=== PATIENT | female | born 1930 | race Caucasian/White ===

== ENCOUNTER → 2016-08-07 | Outpatient (CLI) | payer MEDICARE, BC ==
[~2016-08-07] MED LIST: ASPI-110 PO; DRIS50002 PO; ERGO1CAP30 PO; GLUCOMETER STRIPS; Glucometer; HYDR-3516 PO; LISI10TA3 PO; MELA1TAB18 PO; METF500T4 PO; MONT10TA2 PO; MULTTAB67 PO
[2016-08-07 13:27] LABS: MICRO ALBUMIN RANDOM URINE RAW 7.1 MG/L (0.0-30.0)
[2016-08-07 13:47] LABS: ALT (GPT) 22 U/L (10-53); ANION GAP 7 MEQ/L (5-15); AST (GOT) 17 U/L (15-37); BICARBONATE 26.9 MEQ/L (21.0-32.0); BLOOD UREA NITROGEN 10 MG/DL (7-18); CHLORIDE 106 MEQ/L (98-107); GLOMERULAR FILTRATION RATE 87 ML/MIN (>89); GLUCOSE,FASTING 128 MG/DL (74-99); POTASSIUM 4.2 MEQ/L (3.5-5.1); SODIUM (NA) 140 MEQ/L (136-145)
[2016-08-07 13:51] LABS: ALKALINE PHOSPHATASE 74 U/L (45-117); HDL CHOLESTEROL 66.4 MG/DL (40.0-60.0); LDL CHOLESTEROL 125 MG/DL (0-99); TOTAL BILIRUBIN ADULT 0.7 MG/DL (0.2-1.0)
[2016-08-07 15:53] LABS: HEMOGLOBIN A1a 0.8 %; HEMOGLOBIN A1b 1.2 %; HEMOGLOBIN Ao 84.5 %; HEMOGLOBIN F 1.1 %; HEMOGLOBIN P3 3.6 %
== END ==
LOC: PLAB 10:00
PROVIDERS: ATTEND Family Medicine
DX: E11.9 Type 2 diabetes mellitus without complications (principal); E55.9 Vitamin D deficiency, unspecified; I10 Essential (primary) hypertension
CPT/HCPCS: 36415; 80053; 80061; 82043; 82306; 83036

== ENCOUNTER → 2016-11-25 | Outpatient (CLI) | payer MEDICARE, BC ==
[~2016-11-25] MED LIST changes: -DRIS50002 PO; -MONT10TA2 PO
== END ==
LOC: CLAB 12:51
PROVIDERS: ATTEND Family Medicine
DX: L65.9 Nonscarring hair loss, unspecified (principal)
CPT/HCPCS: 36415; 84443

== ENCOUNTER → 2017-01-01 | Outpatient (CLI) | payer MEDICARE, BC ==
[~2017-01-01] MED LIST changes: -ASPI-110 PO; +ASPI1TAB57 PO; -ERGO1CAP30 PO; +VITA500012 PO
[2017-01-01 15:02] LABS: ANION GAP 10 MEQ/L (5-15); BICARBONATE 25.2 MEQ/L (21.0-32.0); BLOOD UREA NITROGEN 9 MG/DL (7-18); CHLORIDE 104 MEQ/L (98-107); GLUCOSE,FASTING 114 MG/DL (74-99); POTASSIUM 3.8 MEQ/L (3.5-5.1); SODIUM (NA) 139 MEQ/L (136-145)
[2017-01-01 15:15] LABS: ALKALINE PHOSPHATASE 80 U/L (45-117); ALT (GPT) 24 U/L (10-53); AST (GOT) 13 U/L (15-37); GLOMERULAR FILTRATION RATE 97 ML/MIN (>89); HDL CHOLESTEROL 74.7 MG/DL (40.0-60.0); LDL CHOLESTEROL 141 MG/DL (0-99); TOTAL BILIRUBIN ADULT 0.6 MG/DL (0.2-1.0)
[2017-01-01 15:28] LABS: MICRO ALBUMIN RANDOM URINE RAW 9.2 MG/L (0.0-30.0)
[2017-01-01 18:19] LABS: HEMOGLOBIN A1b 1.3 %; HEMOGLOBIN Ao 83.6 %; HEMOGLOBIN F 1.2 %; HEMOGLOBIN LA1C 2.3 %; HEMOGLOBIN P3 3.8 %
== END ==
LOC: PLAB 10:58
PROVIDERS: ATTEND Family Medicine
DX: M81.0 Age-related osteoporosis without current pathological fracture (principal); E11.9 Type 2 diabetes mellitus without complications; I10 Essential (primary) hypertension; E04.1 Nontoxic single thyroid nodule; E55.9 Vitamin D deficiency, unspecified
CPT/HCPCS: 36415; 80053; 80061; 82043; 82306; 83036; 84443

== ENCOUNTER 2017-02-14 17:48 | Emergency (ER) | payer MEDICARE ==
[~2017-02-14] VITALS: Ht 157.5 cm; Wt 60.0 kg
[~2017-02-14 17:48] MED LIST changes: +FOSA70TA PO; -HYDR-3516 PO
[2017-02-14 17:59] VITALS: BP 162/78; PULSE 99; RESP 16; TEMP 98.9; O2SAT 96
--- NOTE | 2017-02-14 18:23 | PD ---
HPI Chief Complaint: Musculoskeletal Complaint Time Seen by Provider: 18:07 Travel History International Travel<30 days: No Contact w/Intl Traveler<30days: No Traveled to known affect area: No History of Present Illness HPI The patient was seen and examined in the presence of the nurse. This patient complains of pain in her left hip. It radiates to her left groin. Started yesterday. Worse with movement. No injury. No fever. Symptoms have no alleviating factors. Duration 2 days PFSH Past Medical History Cancer: Yes Diabetes: Yes Social History Alcohol Use: No Tobacco Use: No Substance Use: No Allergies-Medications (Allergen,Severity, Reaction): Coded Allergies: No Known Allergies (Unverified Adverse Reaction, Unknown, 02/14/17) Reported Meds & Prescriptions Reported Meds & Active Scripts Active Tramadol (Tramadol HCl) 50 Mg Tab 50 Mg PO Q6H PRN Metformin ER (Metformin HCl) 500 Mg Kaleb 500 Mg PO DAILY With evening meal Lisinopril 10 Mg Tab 10 Mg PO DAILY Review of Systems General / Constitutional: No: Fever Eyes: No: Visual changes HENT: No: Headaches Cardiovascular: No: Chest Pain or Discomfort Respiratory: No: Shortness of Breath Gastrointestinal: No: Abdominal Pain Genitourinary: No: Dysuria Musculoskeletal: Positive: Arthralgias, Limited ROM, Pain Skin: No Rash Neurologic: No: Weakness Psychiatric: No: Depression Endocrine: No: Polydipsia Hematologic/Lymphatic: No: Easy Bruising Physical Exam Narrative GENERAL: Well-nourished, well-developed patient in no apparent distress. SKIN: Focused skin assessment reveals no rash and nodules. Skin is Warm and dry. HEAD: Atraumatic. Normocephalic. EYES: Pupils equal and round. No scleral icterus. No injection or drainage. ENT: No nasal bleeding or discharge. Mucous membranes pink and moist. NECK: Trachea midline. No JVD. CARDIOVASCULAR: Regular rate and rhythm. No murmur appreciated. RESPIRATORY: No accessory muscle use. Clear to auscultation. Breath sounds equal bilaterally. GASTROINTESTINAL: Abdomen soft, non-tender, nondistended. Hepatic and splenic margins not palpable. MUSCULOSKELETAL: No obvious deformities. No clubbing. No cyanosis. No edema. Good range of motion of left hip. No redness or warmth or bruising or swelling seen. I don't see any abnormality in the groin NEUROLOGICAL: Awake and alert. No obvious cranial nerve deficits. Motor grossly within normal limits. Normal speech. PSYCHIATRIC: Appropriate mood and affect; insight and judgment normal. Data Data Last Documented VS Vital Signs Date Time Temp Pulse Resp B/P (MAP) Pulse Ox O2 Delivery O2 Flow Rate FiO2 02/14/17 17:59 98.9 99 16 162/78 (106) 96 Orders Orders Hip, Lat Only W Ap Pelvis (02/14/17 ) MDM Medical Decision Making Medical Screen Exam Complete: Yes Emergency Medical Condition: Yes Medical Record Reviewed: Yes Differential Diagnosis Groin strain, hip dislocation, pelvic fracture Narrative Course I have reviewed the patient's electronic medical record. Patient was here a year ago for hip pain I don't see any objective findings on exam. This is not a septic joint. I don't see a groin hernia or anything else that would explain obviously what's going on. I reviewed her pelvis x-ray which is normal I reviewed her left hip x-ray which is normal Patient has an orthopedist she plans on following up with. I wrote her some tramadol to use as needed at her request for something for pain Diagnosis Primary Impression: Left groin pain Additional Impression: Left hip pain Additional Instructions: The patient was warned about potential sedation for the medications they will receive on prescription. The patient was advised to follow up with their physician and return if they worsen. Med/Other Pt SpecificInfo: Prescription(s) given Scripts Tramadol (Tramadol) 50 Mg Tab 50 MG PO Q6H Y for PAIN, #20 TAB 0 Refills Prov: Best Sauceda MD 02/14/17 Disposition: 01 DISCHARGE HOME Condition: Stable Best Sauceda MD Feb 14, 2017 18:23
--- NOTE | 2017-02-14 18:54 | RADRPT ---
EXAM DATE/TIME: 02/14/2017 18:36 [facility] COMPARISON: No previous studies available for comparison. INDICATIONS : Left hip pain. No known injury. MEDICAL HISTORY : Diabetes mellitus type 2. Skin cancer SURGICAL HISTORY : None. ENCOUNTER: Initial ACUITY: 2 days PAIN SCORE: 7/10 LOCATION: Left pelvis FINDINGS: A lateral view of the left hip with AP pelvis was obtained. No definite fractures, dislocations, lyt ic or sclerotic lesions are seen. The primary and secondary to pattern of the femoral neck is mainta ined. The joint space is well maintained. Several calcified phleboliths in the pelvis. CONCLUSION: No fracture seen. Grayson Garcia MD on February 14, 2017 at 18:51 Board Certified Radiologist. This report was verified electronically.
[2017-02-14] MEDS ORDERED: TRAM50TA PO (19:12)
[2017-02-14 19:22] VITALS: BP 158/78
== END 2017-02-14 19:31 | disposition home or self-care (01) ==
LOC: PHED 17:48
DX: M25.552 Pain in left hip (principal); R10.32 Left lower quadrant pain; E11.9 Type 2 diabetes mellitus without complications; Z79.899 Other long term (current) drug therapy
CPT/HCPCS: 73501; 99283

== ENCOUNTER 2017-02-24 11:05 | Inpatient (IN) | payer MEDICARE, BC ==
[~2017-02-24] VITALS: Ht 152.4 cm; Wt 60.9 kg
[2017-02-24] VITALS (11 sets, daily range): BP systolic 128–157; BP diastolic 61–86; PULSE 85–144; RESP 16–24; TEMP 98.3–98.7; O2SAT 93–99
[~2017-02-24 11:05] MED LIST changes: +TRAM50TA PO
[2017-02-24] MEDS ORDERED: IOHEXOL 350 MG/ML 10 ML VIAL (for RAD DIAG) IVCONTRAST ONE (11:06)
--- NOTE | 2017-02-24 11:32 | PD ---
HPI Chief Complaint: General Weakness Time Seen by Provider: 11:12 Travel History International Travel<30 days: No Contact w/Intl Traveler<30days: No Traveled to known affect area: No History of Present Illness HPI 86 year old female presents to the emergency department for evaluation of generalized weakness and right cubital fossa pain. Patient was evaluated at our facility on February 14 for left hip pain. Patient helped her her granddaughter clean out a scream and porch a couple days before the left hip pain presented. An x-ray was performed at our facility which was negative. The patient was discharged home with tramadol prescription. The patient states the left hip pain is not significant at this time however she experienced transient abdominal pain on Friday the , denies any nausea, vomiting or diarrhea. She states the abdominal pain was dull in nature and only last a couple hours resolving on its own. Patient denies any fever, chills, malaise, chest pain, shortness of breath. Patient now states the cubital fossa on her right arm is painful. The pain in her right arm started 2 days ago. She denies any exacerbating or alleviating factors. Patient denies any trauma, injury or falls. No obvious deformity, ecchymosis, or erythema. Body Art Technician strengths are equal on bilateral upper extremities. PFSH Past Medical History Cancer: Yes Diabetes: Yes Hypertension: Yes Social History Alcohol Use: No Tobacco Use: No Substance Use: No Allergies-Medications (Allergen,Severity, Reaction): Coded Allergies: No Known Allergies (Unverified Allergy, Unknown, 02/24/17) Reported Meds & Prescriptions Reported Meds & Active Scripts Active Tramadol (Tramadol HCl) 50 Mg Tab 50 Mg PO Q6H PRN Metformin ER (Metformin HCl) 500 Mg Kaleb 500 Mg PO DAILY With evening meal Lisinopril 10 Mg Tab 10 Mg PO DAILY Review of Systems Except as stated in HPI: all other systems reviewed are Neg Physical Exam Narrative GENERAL: Well-nourished, well-developed, well-appearing 86-year-old female in no acute distress. Nontoxic appearing. SKIN: Focused skin assessment warm/dry. HEAD: Atraumatic. Normocephalic. EYES: Pupils equal and round. No scleral icterus. No injection or drainage. ENT: No nasal bleeding or discharge. Mucous membranes pink and moist. NECK: Trachea midline. No JVD. CARDIOVASCULAR: Regular rate and rhythm. No murmur appreciated. Radial pulses +2 bilaterally. RESPIRATORY: No accessory muscle use. Clear to auscultation. Breath sounds equal bilaterally. GASTROINTESTINAL: Abdomen soft, non-tender, nondistended. Hepatic and splenic margins not palpable. MUSCULOSKELETAL: Equal filtering machine tender strengths bilaterally. No obvious deformities. No clubbing. No cyanosis. No edema. NEUROLOGICAL: Awake and alert. No obvious cranial nerve deficits. Motor grossly within normal limits. Normal speech. PSYCHIATRIC: Appropriate mood and affect; insight and judgment normal. Data Data Last Documented VS Vital Signs Date Time Temp Pulse Resp B/P (MAP) Pulse Ox O2 Delivery O2 Flow Rate FiO2 02/24/17 16:21 174 175/95 02/24/17 15:40 24 93 Nasal Cannula 2.00 02/24/17 11:08 98.7 Orders Orders Electrocardiogram (02/24/17 11:26) Complete Blood Count With Diff (02/24/17 11:26) Basic Metabolic Panel (Bmp) (02/24/17 11:26) Ckmb (Isoenzyme) Profile (02/24/17 11:26) Troponin I (02/24/17 11:26) Urinalysis - C+S If Indicated (02/24/17 11:26) Urine Culture (02/24/17 11:40) Sodium Chlorid 0.9% 500 Ml Inj (Ns 500 M (02/24/17 12:45) Ct Abd/Pel W Iv Contrast(Rout) (02/24/17 12:34) Iohexol 350 Inj (Omnipaque 350 Inj) (02/24/17 11:06) Diltiazem Inj (Cardizem Inj) (02/24/17 15:30) Diltiazem Inj (Cardizem Inj) (02/24/17 16:00) Magnesium (Mg) (02/24/17 11:40) Admit To Inpatient (02/24/17 ) Code Status (02/24/17 16:35) Vital Signs (Adult) Q4H (02/24/17 16:35) Activity Oob With Assistance (02/24/17 16:35) Muck Boss / Telemetry .CONTINUOUS (02/24/17 16:35) Notify Dr: Other (02/24/17 16:35) Sodium Chloride 0.9% Flush (Ns Flush) (02/24/17 16:45) Sodium Chloride 0.9% Flush (Ns Flush) (02/24/17 21:00) Resp Oxygen Jonathon C Titrat 1-4 L (02/24/17 ) Pt Request For Service (02/24/17 16:35) Ot Request For Service (02/24/17 16:35) Enoxaparin Inj (Lovenox Inj) (02/24/17 17:00) Acetaminophen (Tylenol) (02/24/17 16:45) Ibuprofen (Motrin) (02/24/17 16:45) Naloxone Inj (Narcan Inj) (02/24/17 16:45) Docusate Sodium-Senna (Renetta-Colace) (02/24/17 21:00) Magnesium Hydroxide Liq (Milk Of Magnesi (02/24/17 16:45) Sennosides (Senokot) (02/24/17 16:45) Bisacodyl Supp (Dulcolax Supp) (02/24/17 16:45) Lactulose Liq (Lactulose Liq) (02/24/17 16:45) Inpatient Certification (02/24/17 ) Bedside Glucose ALEX.CSUGAR (02/24/17 16:41) Blood Glucose Goal (Criteria) (02/24/17 16:41) Hypoglycemia 70 Mg/Dl Or < (02/24/17 16:41) Notify Dr: Other (02/24/17 16:41) Dextrose 50% In Sera (Vial) Inj (D50w (Vi (02/24/17 16:45) Glucagon Inj (Glucagon Inj) (02/24/17 16:45) Diet 1999 Ada Cons Carb (02/24/17 Dinner) Lisinopril (Prinivil) (02/25/17 09:00) Troponin I (02/24/17 16:45) Troponin I (02/24/17 22:45) Ckmb (Isoenzyme) Profile (02/24/17 16:45) Ckmb (Isoenzyme) Profile (02/24/17 22:45) Electrocardiogram (02/24/17 16:45) Electrocardiogram (02/24/17 22:45) Thyroid Stimulating Hormone (02/24/17 16:46) Echo 2d Comp With Doppler (02/24/17 ) Ceftriaxone Inj (Rocephin Inj) (02/24/17 17:00) Influenzae A/B Antigen (02/24/17 16:48) Metformin (Glucophage) (02/26/17 18:00) Admit Order (Ed Use Only) (02/24/17 17:05) Labs Laboratory Tests Test 02/24/17 11:40 White Blood Count 19.3 TH/MM3 Red Blood Count 4.20 MIL/MM3 Hemoglobin 13.5 GM/DL Hematocrit 37.9 % Mean Corpuscular Volume 90.2 FL Mean Corpuscular Hemoglobin 32.0 PG Mean Corpuscular Hemoglobin Concent 35.5 % Red Cell Distribution Width 12.1 % Platelet Count 529 TH/MM3 Mean Platelet Volume 8.6 FL Neutrophils (%) (Auto) 84.4 % Lymphocytes (%) (Auto) 5.3 % Monocytes (%) (Auto) 9.6 % Eosinophils (%) (Auto) 0.3 % Basophils (%) (Auto) 0.4 % Neutrophils # (Auto) 16.3 TH/MM3 Lymphocytes # (Auto) 1.0 TH/MM3 Monocytes # (Auto) 1.8 TH/MM3 Eosinophils # (Auto) 0.0 TH/MM3 Basophils # (Auto) 0.1 TH/MM3 CBC Comment DIFF FINAL Differential Comment Urine Color YELLOW Urine Turbidity CLEAR Urine pH 6.0 Urine Specific [place] 1.017 Urine Protein 30 mg/dL Urine Glucose (UA) NEG mg/dL Urine Ketones 10 mg/dL Urine Occult Blood NEG Urine Nitrite NEG Urine Bilirubin NEG Urine Urobilinogen LESS THAN 2.0 MG/DL Urine Leukocyte Esterase SMALL Urine RBC LESS THAN 1 /hpf Urine WBC 9 /hpf Urine Squamous Epithelial Cells <1 /hpf Urine Bacteria OCC /hpf Urine Mucus MANY /lpf Microscopic Urinalysis Comment CULTURE INDICATED Blood Urea Nitrogen 7 MG/DL Creatinine 0.65 MG/DL Random Glucose 209 MG/DL Calcium Level 9.3 MG/DL Magnesium Level 1.9 MG/DL Sodium Level 131 MEQ/L Potassium Level 3.6 MEQ/L Chloride Level 96 MEQ/L Carbon Dioxide Level 24.4 MEQ/L Anion Gap 11 MEQ/L Estimat Glomerular Filtration Rate 86 ML/MIN Total Creatine Kinase 67 U/L Troponin I 0.03 NG/ML MDM Medical Decision Making Medical Screen Exam Complete: Yes Emergency Medical Condition: Yes Differential Diagnosis Differential diagnosis include but not limited to muscle strain, muscle sprain, electrolyte abnormality, coronary event Narrative Course Patient placed on monitor and IV obtained. Blood work sent to the lab. CBC, BMP , Troponin, CK-MB, UA ordered and pending. EKG ordered and interpreted. EKG shows NSR with HR 91 with LBBB. Patient has no previous EKG in our system to compare. Patient denies any chest pain or shortness of breath. CBC results leukocytosis with WBCs 19.3 BMP shows mild hyponatremia was Na 131 Trop 0.03 CK-MB 67 UA shows Protein, ketones, small amount of esterase, many bacteria and 9 WBCs. Patient will be treated for UTI. Abd CT ordered and shows cholelithiasis. While patient was on monitor it was noted that she became very tachycardiac in the 150s-170s. She denies any cardiac history. She continued to deny any chest pain, shortness of breath or palpations. Additional EKG ordered and interpreted and it revealed A. fib with RVR. 15 mg IV bolus of Cardizem was ordered and Cardizem drip. Patient was admitted to the resident's for A. fib with RVR at this time. Last Impressions Abdomen/Pelvis CT 02/24/17 1234 Signed Impressions: Service Date/Time: Friday, February 24, 2017 14:36 - CONCLUSION: Cholelithiasis. Ashley Diaz MD Diagnosis Primary Impression: New onset a-fib Additional Impressions: Atrial fibrillation with RVR UTI (urinary tract infection) Qualified Codes: N39.0 - Urinary tract infection, site not specified Admitting Information Admitting Physician Requests: Admit Fabiana Lazcano Feb 24, 2017 11:32
[2017-02-24 12:10] LABS: AUTOMATED NEUTROPHIL # 16.3 TH/MM3 (1.8-7.7); BASOPHIL # 0.1 TH/MM3 (0-0.2); BASOPHIL % 0.4 % (0.0-2.0); EOSINOPHIL % 0.3 % (0.0-4.0); HEMATOCRIT 37.9 % (35.0-46.0); HEMOGLOBIN 13.5 GM/DL (11.6-15.3); LYMPH % 5.3 % (9.0-44.0); MEAN CELL VOLUME 90.2 FL (80.0-100.0); MEAN CORPUSCULAR HGB CONC 35.5 % (32.0-36.0); MEAN PLATELET VOLUME 8.6 FL (7.0-11.0); MONO % 9.6 % (0.0-8.0); MONOCYTE # 1.8 TH/MM3 (0-0.9); NEUT % 84.4 % (16.0-70.0); PLATELET COUNT 529 TH/MM3 (150-450); RED CELL DISTRIBUTION WIDTH 12.1 % (11.6-17.2); WHITE BLOOD COUNT 19.3 TH/MM3 (4.0-11.0)
[2017-02-24 12:12] LABS: BACTERIA, URINE OCC /hpf; BILIRUBIN, URINE NEG (NEG); BLOOD, URINE NEG (NEG); GLUCOSE,URINE NEG (NEG); KETONE, URINE 10 mg/dL (NEG); MUCUS URINE MANY /lpf (OCC); NITRITE,URINE NEG (NEG); SQUAMOUS EPITHELIAL CELL URINE <1 /hpf (0-5); URINE COLOR YELLOW (YELLW/STRAW); URINE LEUKOCYTE ESTERASE SMALL (NEG)
[2017-02-24 12:24] LABS: BICARBONATE 24.4 MEQ/L (21.0-32.0); CALCIUM 9.3 MG/DL (8.5-10.1); CREATININE 0.65 MG/DL (0.50-1.00)
[2017-02-24 12:28] LABS: TROPONIN I 0.03 NG/ML (0.02-0.05)
[2017-02-24] MEDS ORDERED: SODIUM CHLORID 0.9% 500 ML INJ 500 ML IV ONE (12:45)
--- NOTE | 2017-02-24 15:19 | RADRPT ---
EXAM DATE/TIME: 02/24/2017 14:36 [facility] COMPARISON: No previous studies available for comparison. INDICATIONS : Patient complains of abdominal pain with weakness. IV CONTRAST: 97 cc Omnipaque 350 (iohexol) IV ORAL CONTRAST: No oral contrast ingested. RADIATION DOSE: 6.64 CTDIvol (mGy) MEDICAL HISTORY : Hypertension. Diabetes mellitus type 1. SURGICAL HISTORY : None. ENCOUNTER: Initial ACUITY: 1 week PAIN SCALE: 5/10 LOCATION: abdominal TECHNIQUE: Volumetric scanning of the abdomen and pelvis was performed. Using automated exposure control and adjustment of the mA and/or kV according to patient size, radiation dose was kept as low as reasonably achievable to obtain optimal diagnostic quality images. DICOM format image data is av ailable electronically for review and comparison. FINDINGS: CT Abdomen: The liver, spleen, pancreas, kidneys, adrenals are unremarkable. There is no evidence for any appreciable pathological adenopathy, free fluid, or bowel obstruction. The gallbladder demonstr ates multiple stones without gallbladder wall thickening, or pericholecystic fluid. CT pelvis: There is no evidence for mass, abscess formation, or any significant adenopathy within the pelvis. There are scattered diverticuli mainly in the sigmoid colon without definite signs of divert iculitis. CONCLUSION: Cholelithiasis. Ashley Diaz MD on February 24, 2017 at 15:13 Board Certified Radiologist. This report was verified electronically.
[2017-02-24] MEDS ORDERED: niCARdipine INJ 25 MG in SODIUM CHLOR 0.9% 250 ML INJ 240 ML IV ONE (15:30)
[2017-02-24] MEDS ORDERED: DILTIAZEM HCL 25 MG/5 ML VIAL IV ONE ×2 (15:30)
--- NOTE | 2017-02-24 15:47 | HHI.HP ---
HPI Service Family Medicine Primary Care Physician Bekah Tabares MD Admission Diagnosis AFib with RVR Diagnoses: International Travel<30 Days: No Contact w/Intl Traveler<30days: No Known Affected Area: No History of Present Illness 86 yo female with h/o DM presenting with 2 days of R elbow pain and R arm weakness in the setting of a week of intermittent muscle aches in various parts of her body, intermittent dull abdominal pain, and global weakness. She recently helped her granddaughter clean a screen at their house but recalls no trauma to her arm or any other body part. (Timoteo Singletary MD) Review of Systems Constitutional: COMPLAINS OF: Fatigue, DENIES: Fever, Chills Endocrine: DENIES: Heat/cold intolerance Eyes: COMPLAINS OF: Blurred vision (chronic), DENIES: Eye pain Ears, nose, mouth, throat: DENIES: Throat pain, Ear Pain Respiratory: DENIES: Cough, Wheezing, Sputum production, Shortness of breath Cardiovascular: DENIES: Chest pain, Palpitations Gastrointestinal: COMPLAINS OF: Abdominal pain, DENIES: Black stools, Bloody stools, Constipation, Diarrhea, Nausea, Vomiting Genitourinary: COMPLAINS OF: Urinary frequency, Urinary incontinence, DENIES: Urgency, Dysuria Musculoskeletal: COMPLAINS OF: Muscle aches, DENIES: Joint pain, Stiffness Integumentary: DENIES: Rash Hematologic/lymphatic: DENIES: Bruising Immunologic/allergic: DENIES: Eczema Neurologic: COMPLAINS OF: Localized weakness (R arm feels weaker), DENIES: Abnormal gait, Paresthesias, Speech Problems Psychiatric: DENIES: Anxiety, Depression (Timoteo Singletary MD) Past Family Social History Past Medical History DM II HTN Vitamin D deficiency Vitamin B12 deficiency? chronic foot pain knee and hip arthritis osteoporosis esophageal stricture nonobstructive cholelithiasis R thyroid nodule, 08/2015 Past Surgical History L cornea transplant, 2013 Cataract surgery, bilaterally L breast biopsy, 1998 esophageal dilation, 2009 L wrist fracture, 2012 Reported Medications Reported Meds & Active Scripts Active Tramadol (Tramadol HCl) 50 Mg Tab 50 Mg PO Q6H PRN Metformin ER (Metformin HCl) 500 Mg Kaleb 500 Mg PO DAILY With evening meal Lisinopril 10 Mg Tab 10 Mg PO DAILY (Timoteo Singletary MD) Allergies: Coded Allergies: No Known Allergies (Unverified Allergy, Unknown, 02/24/17) Family History mother - DM II brother - DM II, ESRD from DM II sister - DM II sister - Breast CA, 86yo niece - DM II with retinopathy Suicide, CAD, hypothyroidism Social History x 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 From [place]. Never smoker. No alcohol, no illicits. No regular exercise. Retired, but worked as [employer]ER. Health Maintenance: last pap: 07/2009, normal mammogram: 12/2013, normal; declines additional mammogram DEXA: 10/2012, osteoporosis colonoscopy: 07/2013 flu vaccine: Fall 2016 pneumococcal vaccine: pneumovax: 11/2004 prevnar: 06/2014 shingles vaccine: 02/2007 TdaP: 11/2005 eye doctor: 11/2016, Dr Wolff dentist: years Other physicians: maggi Mar (Cornea specialist) maggi Quinonez Dr, GI (Timoteo Singletary MD) Physical Exam Vital Signs Vital Signs Date Time Temp Pulse Resp B/P (MAP) Pulse Ox O2 Delivery O2 Flow Rate FiO2 02/24/17 15:40 144 24 149/86 (107) 93 Nasal Cannula 2.00 02/24/17 13:07 88 18 128/61 (83) 94 Room Air 02/24/17 11:28 95 Room Air 02/24/17 11:08 98.7 102 18 157/76 (103) 94 Room Air Physical Exam GENERAL: Thin elderly white female sitting up in bed in [facility] SKIN: No rashes, ecchymoses or lesions. Cool and dry. HEAD: NC/AT EYES: PERRL. EOMI. No conjunctival injection or drainage. ENT: MMM, OP without erythema, tonsillar swelling, or exudate. NECK: Supple, no lymphadenopathy. No JVD. CARDIOVASCULAR: Tachycardic with irregularly irregular rhythm. Normal S1/S2. No MRG RESPIRATORY: CTAB. No crackles or wheezes. GASTROINTESTINAL: Abdomen soft, non-distended, non-tender. No hepato- splenomegaly or palpable masses. MUSCULOSKELETAL: Extremities without clubbing, cyanosis, or edema. Mild tenderness to palpation of b/l ankles. R elbow without evidence of trauma. Mild tenderness over medial and lateral epicondyles. NEUROLOGICAL: Awake and alert. Cranial nerves II through XII intact. No facial droop. Speech normal. Sensation intact to light touch over all dermatomes. Strength 5/5 in all major muscle groups. Rapid alternating movements normal. [id number]-[id number] testing normal. No pronator drift. Laboratory Laboratory Tests Test 02/24/17 11:40 White Blood Count 19.3 Red Blood Count 4.20 Hemoglobin 13.5 Hematocrit 37.9 Mean Corpuscular Volume 90.2 Mean Corpuscular Hemoglobin 32.0 Mean Corpuscular Hemoglobin Concent 35.5 Red Cell Distribution Width 12.1 Platelet Count 529 Mean Platelet Volume 8.6 Neutrophils (%) (Auto) 84.4 Lymphocytes (%) (Auto) 5.3 Monocytes (%) (Auto) 9.6 Eosinophils (%) (Auto) 0.3 Basophils (%) (Auto) 0.4 Neutrophils # (Auto) 16.3 Lymphocytes # (Auto) 1.0 Monocytes # (Auto) 1.8 Eosinophils # (Auto) 0.0 Basophils # (Auto) 0.1 CBC Comment DIFF FINAL Differential Comment Urine Color YELLOW Urine Turbidity CLEAR Urine pH 6.0 Urine Specific [place] 1.017 Urine Protein 30 Urine Glucose (UA) NEG Urine Ketones 10 Urine Occult Blood NEG Urine Nitrite NEG Urine Bilirubin NEG Urine Urobilinogen LESS THAN 2.0 Urine Leukocyte Esterase SMALL Urine RBC LESS THAN 1 Urine WBC 9 Urine Squamous Epithelial Cells <1 Urine Bacteria OCC Urine Mucus MANY Microscopic Urinalysis Comment CULTURE INDICATED Blood Urea Nitrogen 7 Creatinine 0.65 Random Glucose 209 Calcium Level 9.3 Sodium Level 131 Potassium Level 3.6 Chloride Level 96 Carbon Dioxide Level 24.4 Anion Gap 11 Estimat Glomerular Filtration Rate 86 Total Creatine Kinase 67 Troponin I 0.03 Date/Time Source Procedure Growth Status 02/24/17 11:40 Urine Clean Catch Urine Culture Pending Received (Timoteo Singletary MD) Result Diagram: 02/24/17 1140 02/24/17 1140 Imaging Last Impressions Abdomen/Pelvis CT 02/24/17 1234 Signed Impressions: Service Date/Time: Friday, February 24, 2017 14:36 - CONCLUSION: Cholelithiasis. Ashley Diaz MD (Timoteo Singletary MD) Caprini VTE Risk Assessment Caprini VTE Risk Assessment: Mod/High Risk (score >= 2) (Timoteo Singletary MD) Assessment and Plan Assessment and Plan 86 yo female with h/o DM, HTN, cholelithiasis presenting with: (Timoteo Singletary MD) Attending Attestation Patient seen and examined. Case reviewed and discussed with the resident team. Agree with plan of care as discussed with me and documented in the resident note. pt seen and examined on admission in the ED. discussed giving digoxin and possibly loading that medicine if her heart rate did not respond appropriately. (Bernie Rivera MD) Problem List: (1) Atrial fibrillation with RVR ICD Codes: I48.91 - Unspecified atrial fibrillation Status: Resolved Plan: Patient found to be in newly diagnosed AFib with RVR Globally weak but otherwise asymptomatic Initially EKG showing normal sinus rhythm and LBBB Subsequent EKG with AFib, heart rate in 150s, persistent LBBB Telemetry showing HR fluctuating between 150 and 180 Troponin negative x1 - Admit to inpatient - Trend troponin, CKMB, EKG - 2D Echo complete w/ doppler - Diltiazem drip for rate control, titrated per protocol - Check TSH; patient has h/o thyroid nodule though recent TSH was normal - Discussed with cardiology (not formally consulted); LBBB possibly due to elevated HR, patient without typical cardiac symptoms and negative troponins - Available PRN; recommended routine AFib work up (i.e., the above) - PT/OT - CHADS-VASC score of 5 (6.7% yearly stroke risk) - HAS-BLED score of 1 (1-1.5% yearly bleeding risk with OAC) - Will need discussion of anticoagulation; for now given AFib seems to be intermittent will use prophylaxis and have OAC discussion tomorrow when other etiologies than primary AFib ar ruled out (2) UTI (urinary tract infection) ICD Codes: N39.0 - Urinary tract infection, site not specified Status: Resolved Plan: Patient with occasional incontinence, frequency UA suggestive of UTI - Await UCx result - Rocephin 1 gm IV daily (3) Cholelithiasis ICD Codes: K80.20 - Calculus of gallbladder without cholecystitis without obstruction Status: Chronic Plan: Known to have cholelithiasis as outpatient. CT findings in hospital confirm cholelithiasis without cholecystitis. Possibly this is causing some biliary colic which may explain her abdominal pain (which is now resolved) - Monitor clinically (4) Essential hypertension ICD Codes: I10 - Essential (primary) hypertension Status: Chronic Plan: Well controlled as outpatient, mildly hypertensive on admission - Continue home lisinopril - Diltiazem as above (5) Diabetes mellitus ICD Codes: E11.9 - Type 2 diabetes mellitus without complications Status: Chronic Plan: Chronic T2DM - Continue home metformin (low risk of lactic acidosis or other complication; no further imaging studies with IV contrast likely needed) - Accu-checks AC&HS - Diet diabetic (6) FEN/PPX Status: Acute Plan: Fluids: None at this time Electrolytes: Monitor and replace PRN Nutrition: Diet diabetic DVT: Lovenox 30 mg SQ daily Pain: Tylenol and Motrin PRN CODE STATUS: No code / DNR dw Dr. Drew, Dr. Rivera (Timoteo Singletary MD) Physician Certification 2 Midnight Certification Type: Admission for Inpatient Services Order for Inpatient Services The services are ordered in accordance with Medicare regulations or non- Medicare payer requirements, as applicable. In the case of services not specified as inpatient-only, they are appropriately provided as inpatient services in accordance with the 2-midnight benchmark. Estimated LOS (days): 2 days is the estimated time the patient will need to remain in the hospital, assuming treatment plan goals are met and no additional complications. Post-Hospital Plan: Not yet determined (probably home with home health) (Timoteo Singletary MD) Problem Qualifiers (1) UTI (urinary tract infection): Qualified Codes: N39.0 - Urinary tract infection, site not specified (2) Cholelithiasis: Qualified Codes: K80.20 - Calculus of gallbladder without cholecystitis without obstruction (3) Diabetes mellitus: Timoteo Singletary MD Feb 24, 2017 15:47 Bernie Rivera MD Mar 02, 2017 08:15
[2017-02-24] MEDS ORDERED: DILTIAZEM INJ 125 MG in SODIUM CHLORIDE 0.9% INJ 100 ML IV PRN (16:00)
[2017-02-24 16:10] LABS: MAGNESIUM 1.9 MG/DL (1.5-2.5)
[2017-02-24] MEDS ORDERED: GLUCAGON 1 MG/ML VIAL OTHER PRN (16:45)
[2017-02-24] MEDS ORDERED: DEXTROSE 50% IN WATER 50 ML VIAL(D50) IV PUSH PRN (16:45)
[2017-02-24] MEDS ORDERED: SODIUM CHLORIDE 0.9% FLUSH 10 ML FLUSH IV FLUSH PRN (16:45)
[2017-02-24] MEDS ORDERED: NALOXONE HCL 0.4 MG/ML AMP IV PUSH PRN (16:45)
[2017-02-24] MEDS ORDERED: LACTULOSE SYRUP 20 GM/30 ML CUP PO PRN (16:45)
[2017-02-24] MEDS ORDERED: BISACODYL 10 MG SUPP RECTAL PRN (16:45)
[2017-02-24] MEDS ORDERED: ACETAMINOPHEN 325 MG TAB PO PRN (16:45)
[2017-02-24] MEDS ORDERED: MAGNESIUM HYDROXIDE SUSP 30 ML CUP PO PRN (16:45)
[2017-02-24] MEDS ORDERED: SENNOSIDES 8.6 MG TAB PO PRN (16:45)
[2017-02-24] MEDS: cefTRIAXone INJ 1,000 MG in SODIUM CHLORIDE 0.9% INJ 100 ML IV SCH (17:49)
[2017-02-24] MEDS: ENOXAPARIN SODIUM 30 MG/0.3 ML SYRINGE SQ SCH (17:50)
[2017-02-24 18:55] LABS: TROPONIN I 0.03 NG/ML (0.02-0.05)
[2017-02-24] MEDS: DOCUSATE SODIUM 50 MG/SENNA 8.6 MG TAB PO SCH (21:00)
[2017-02-24] MEDS: SODIUM CHLORIDE 0.9% FLUSH 10 ML FLUSH IV FLUSH SCH (21:00)
[2017-02-24 23:13] LABS: TROPONIN I 0.05 NG/ML (0.02-0.05)
[2017-02-25] VITALS (32 sets, daily range): BP systolic 102–147; BP diastolic 54–64; PULSE 66–89; RESP 16–17; TEMP 97.4–98.2; O2SAT 93–98
[2017-02-25 04:28] LABS: BASOPHIL # 0.2 TH/MM3 (0-0.2); BASOPHIL % 1.1 % (0.0-2.0); EOSINOPHIL # 0.1 TH/MM3 (0-0.4); EOSINOPHIL % 0.7 % (0.0-4.0); HEMATOCRIT 32.4 % (35.0-46.0); HEMOGLOBIN 11.4 GM/DL (11.6-15.3); MEAN CELL VOLUME 88.4 FL (80.0-100.0); MEAN CORPUSCULAR HEMOGLOBIN 31.2 PG (27.0-34.0); MEAN CORPUSCULAR HGB CONC 35.3 % (32.0-36.0); MEAN PLATELET VOLUME 7.8 FL (7.0-11.0); MONO % 9.9 % (0.0-8.0); MONOCYTE # 1.8 TH/MM3 (0-0.9); NEUT % 77.3 % (16.0-70.0); PLATELET COUNT 453 TH/MM3 (150-450); RED BLOOD COUNT 3.66 MIL/MM3 (4.00-5.30); RED CELL DISTRIBUTION WIDTH 12.1 % (11.6-17.2); WHITE BLOOD COUNT 18.1 TH/MM3 (4.0-11.0)
[2017-02-25 04:46] LABS: BICARBONATE 25.4 MEQ/L (21.0-32.0); CREATININE 0.48 MG/DL (0.50-1.00)
[2017-02-25] MEDS: IBUPROFEN 400 MG TAB PO PRN ×2 (05:39→17:35)
[2017-02-25] MEDS: DOCUSATE SODIUM 50 MG/SENNA 8.6 MG TAB PO SCH ×2 (08:57→20:45)
[2017-02-25] MEDS: LISINOPRIL 10 MG TAB PO SCH (08:57)
[2017-02-25] MEDS: SODIUM CHLORIDE 0.9% FLUSH 10 ML FLUSH IV FLUSH SCH ×2 (08:58→20:46)
--- NOTE | 2017-02-25 09:06 | ECHRPT ---
Indication: A-FIB CONCLUSIONS Normal left ventricular size. Mild concentric left ventricular hypertrophy. The left ventricular systolic function is normal with an estimated ejection fraction in the range of 60-65%. No regional wall motion abnormalities are present. Lqqpi-ti-[id number] mitral valve regurgitation. Moderate mitral annular calcification. Mild thickening of the aortic valve leaflets. There is mild tricuspid valve regurgitation. BP: 130 / 62 HR: 86 Rhythm: MEASUREMENTS (Male / Female) Normal Values Technical Quality: 2D ECHO LV Diastolic Diameter PLAX 2.9 cm 4.2 - 5.9 / 3.9 - 5.3 cm LV Systolic Diameter PLAX 2.0 cm IVS Diastolic Thickness 1.1 cm 0.6 - 1.0 / 0.6 - 0.9 cm LVPW Diastolic Thickness 1.1 cm 0.6 - 1.0 / 0.6 - 0.9 cm LV Relative Wall Thickness 0.7 LVOT Diameter 1.7 cm LA Systolic Diameter LX 3.1 cm 3.0 - 4.0 / 2.7 - 3.8 cm LV Ejection Fraction MOD 4C 63.2 % LV Cardiac Index MOD 4C 3063.6 cm/minm LV Ejection Fraction 4C AL 64.3 % LV Cardiac Index 4C AL 3293.0 cm/minm M-MODE Aortic Root Diameter MM 2.3 cm AV Cusp Separation MM 1.3 cm DOPPLER AV Peak Velocity 210.0 cm/s AV Peak Gradient 17.6 mmHg AV Mean Gradient 9.0 mmHg AV Velocity Time Integral 47.9 cm LVOT Peak Velocity 117.7 cm/s LVOT Peak Gradient 5.5 mmHg LVOT Velocity Time Integral 29.8 cm LVOT Cardiac Index 3774.0 cm/minm AV Area Cont Eq vti 1.4 cm AV Area Cont Eq pk 1.3 cm MV Area PHT 2.6 cm Mitral E Point Velocity 105.0 cm/s Mitral A Point Velocity 126.0 cm/s Mitral E to A Ratio 0.8 LV E' Lateral Velocity 6.3 cm/s Mitral E to LV E' Lateral Ratio 16.6 LV E' Septal Velocity 7.0 cm/s Mitral E to LV E' Septal Ratio 15.0 TR Peak Velocity 274.0 cm/s TR Peak Gradient 30.0 mmHg Right Atrial Pressure 10.0 mmHg Pulmonary Artery Systolic Pressu 40.0 mmHg Right Ventricular Systolic Press 40.0 mmHg PV Peak Velocity 117.0 cm/s PV Peak Gradient 5.5 mmHg FINDINGS LEFT VENTRICLE Normal left ventricular size. Mild concentric left ventricular hypertrophy. The left ventricular systolic function is normal with an estimated ejection fraction in the range of 60-65%. No regional wall motion abnormalities are present. RIGHT VENTRICLE Normal right ventricular size and systolic function. LEFT ATRIUM The left atrial size is normal. RIGHT ATRIUM The right atrial size is normal. ATRIAL SEPTUM Normal atrial septal thickness without atrial level shunting by limited color doppler interrogation. AORTA The aortic root and proximal ascending aorta are normal in size on limited imaging. MITRAL VALVE Ajusd-by-patl mitral valve regurgitation. Moderate mitral annular calcification. AORTIC VALVE Mild thickening of the aortic valve leaflets. TRICUSPID VALVE There is mild tricuspid valve regurgitation. PULMONARY VALVE No pulmonary valve regurgitation or stenosis. VESSELS The inferior vena cava is normal in size. PERICARDIUM No pericardial effusion. Eric Ennis MD (Electronically Signed) Final Date:25 February 2017 09:05
[2017-02-25] MEDS ORDERED: DEXTROSE 50% IN WATER 50 ML VIAL(D50) IV PUSH PRN ×2 (13:30→17:15)
[2017-02-25] MEDS ORDERED: GLUCAGON 1 MG/ML VIAL OTHER PRN ×2 (13:30→17:15)
--- NOTE | 2017-02-25 14:22 | RADRPT ---
EXAM DATE/TIME: 02/25/2017 13:20 [place] COMPARISON: No previous studies available for comparison. INDICATIONS : Coughing, short of breath MEDICAL HISTORY : A-fib SURGICAL HISTORY : None. ENCOUNTER: Initial ACUITY: 1 day PAIN SCORE: 0/10 LOCATION: Bilateral chest FINDINGS: The lungs are clear without infiltrate, nodule, or mass. There is no appreciable pleural effusion fo r technique. Heart and mediastinum are unremarkable. There are atherosclerotic calcifications of the aorta due to chronic atherosclerotic disease. CONCLUSION: No acute cardiopulmonary disease. Ashley Diaz MD on February 25, 2017 at 14:19 Board Certified Radiologist. This report was verified electronically.
--- NOTE | 2017-02-25 15:15 | HHI.FPPN ---
Subjective Remarks Mrs. Morillo was afebrile with stable vital signs overnight; patient with HR in the 70's-80's on Diltiazem 5 mg/hr. Mrs. Morillo reports that she has been doing ok overnight but that she has continued to have right arm pain above her elbow and that she feels weak. No chest pain or shortness of breath reported. Possibility of initiating anticoagulation discussed with patient; she reports that she would like to start despite knowledge of the potential risk of hemorrhage. (Raphael Umana MD, R3) Remarks Patient was again interviewed this afternoon: Patient reported continued weakness and R arm pain. Patient also reports nasal pain and concern that she may have broken her nose; she does not recall any fall injury but states that she sometimes bumps into objects in her house. Patient also reports having some cough when breathing deeply. Patient provided supplemental history regarding events leading up to her hospitalization; she states that she felt feverish/had sweating at night in association with diffuse body pains (such as L hip) which have been transient and have varied in location. (Raphael Umana MD, R3) Objective Vitals Vital Signs Date Time Temp Pulse Resp B/P (MAP) Pulse Ox O2 Delivery O2 Flow Rate FiO2 02/25/17 14:00 76 02/25/17 13:00 72 02/25/17 12:00 68 02/25/17 11:46 97.4 67 16 102/54 (70) 94 02/25/17 11:08 96 Room Air 02/25/17 11:00 66 02/25/17 10:00 70 02/25/17 09:00 68 02/25/17 08:20 93 21 02/25/17 08:00 72 02/25/17 07:46 96 Nasal Cannula 2.00 02/25/17 07:46 97.6 68 16 114/58 (76) 96 02/25/17 07:00 67 02/25/17 06:37 73 02/25/17 05:30 84 02/25/17 04:38 85 02/25/17 03:15 98.2 86 17 130/62 (84) 93 02/25/17 03:04 80 02/25/17 02:35 82 02/25/17 01:13 86 02/25/17 00:19 89 02/24/17 23:30 98.3 85 17 139/63 (88) 93 02/24/17 23:00 93 02/24/17 22:25 99 Nasal Cannula 2.00 02/24/17 22:15 86 02/24/17 21:15 88 02/24/17 20:15 92 02/24/17 19:20 98.6 96 16 136/63 (87) 97 02/24/17 19:20 93 02/24/17 18:17 91 18 141/63 (89) 97 Nasal Cannula 2.00 02/24/17 16:21 174 175/95 02/24/17 15:40 144 24 149/86 (107) 93 Nasal Cannula 2.00 I/O 02/24/17 02/24/17 02/24/17 02/25/17 02/25/17 02/25/17 07:00 15:00 23:00 07:00 15:00 23:00 Intake Total 500 ml 480 ml Output Total 275 ml Balance 500 ml 205 ml Intake Oral 480 ml IV Total 500 ml Output Urine Total 275 ml (Raphael Umana MD, R3) Result Diagram: 02/25/17 0412 02/25/17 0412 Imaging Last Impressions Chest X-Ray 02/25/17 0000 Signed Impressions: Service Date/Time: Saturday, February 25, 2017 13:20 - CONCLUSION: No acute cardiopulmonary disease. Ashley Diaz MD Abdomen/Pelvis CT 02/24/17 1234 Signed Impressions: Service Date/Time: Friday, February 24, 2017 14:36 - CONCLUSION: Cholelithiasis. Ashley Diaz MD Objective Remarks GENERAL: Thin elderly white female sitting up in bed in [facility] SKIN: No rashes, ecchymoses or lesions. Cool and dry. HEAD: Nasal bridge widening suggestive of swelling; some nasal asymmetry for dislocation/fracture. No other suggestion of head trauma EYES: EOM grossly I. No conjunctival injection or drainage. ENT: MMM CARDIOVASCULAR: Regular rate and rhythm; no murmurs to auscultation. Grossly normal perfusion RESPIRATORY: CTAB; normal rate Abdomen: No pain to palpation; normal BS NEUROLOGICAL: Awake and alert. Cranial nerves grossly intact. No peripheral motor or sensory defects. No pronator drift (Raphael Umana MD, R3) A/P Assessment and Plan 86 yo female with h/o DM, HTN, cholelithiasis presenting with: (Raphael Umana MD, R3) Attending Attestation Patient seen, examined, and discussed with Dr. Umana. I agree with assessment and management as documented and discussed with me. The patient has been seen and examined. The chart and all resident notes have been reviewed. I agree that inpatient care is appropriate and that a two midnight stay is expected for the reasons documented in the resident history and physical. I have discussed this with the resident and certify the resident s order for inpatient admission. Mrs. Morillo is an 86yo lady well-known to me admitted for management of A fib with RVR, new onset. She was started on cardizem drip, and converted to sinus rhythm. rate controlled. ROS: No chest pain, no palpitations. + Cough with deep inspiration. + nasal pain and swelling. No vision changes. No headache. + R arm pain. Generalized weakness and fatigue. All other systems reviewed are negative. PMH/PSxH/SocHx/FamHx: Per resident H&P. Significant for: DM II, HTN, osteoporosis, cholelithiasis, esophageal stricture. L cornea transplant, cataract surgery, esophageal dilation. Fam hx of diabetes in mother, brother, sister, niece. x 68 years. 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 Never smoker. No alcohol use. Transition to cardizem PO and stop cardizem drip. Initiate eliquis for anticoagulation - Discussed risks/benefits with patient. Additional diagnosis: Generalized weakness: Unclear etiology. Encouraged patient to do leg exercises in bed. Discussed with patient that PT recommends Rehab, but pt declines at this time as she is planning to return home to care for her . Anticipate discharge in 1-2 days, once heart rate is stable and pt able to work more with PT - demonstrate safety for return home. (Bekah Tabares MD) Problem List: (1) Atrial fibrillation with RVR ICD Codes: I48.91 - Unspecified atrial fibrillation Status: Acute Plan: -Continue telemetry -rate controlled at this time -Rate control: -Will transition from IV Diltiazem to oral Diltiazem (controlled on 5mg/hr; will transition to 180mg Diltiazem ER) -Anticoagulation: -Will plan to initiate Eliquis anticoagulation after negative head CT ( patient agreeable after discussion regarding benefits/risks) -Will discuss with case management to plan anticoagulation on discharge -Dr. Singletary discussed with cardiology (not formally consulted); LBBB possibly due to elevated HR, patient without typical cardiac symptoms and negative troponins -available PRN; recommended routine AFib work up (i.e., the above) -Will check lipid profile to stratify for ASCVD Impression: Patient found to be in newly diagnosed AFib with RVR; rate controlled with Diltiazem. [id number] score of 3 (5.9% thromboembolic risk). HAS-BLED score of 1. Globally weak but otherwise asymptomatic ACS ruled out: -Initially EKG showing normal sinus rhythm and LBBB; subsequent EKG with AFib , heart rate in 150s, persistent LBBB -Troponins negative x3 TSH wnl Echocardiogram- 60-65% EF; no wall motion abnormalities. Mild concentric LVH (2) UTI (urinary tract infection) ICD Codes: N39.0 - Urinary tract infection, site not specified Status: Acute Plan: -Patient started on Rocephin 1 gm IV daily (will continue since leukocytosis and awaiting CXR) Impression: Patient with occasional incontinence, urinary frequency UA: protein 30, ketones 10, leuk est small, WBC 9, occasional bacteria Urine culture- 50-100k mixed barb; suspect contaminant (3) Cholelithiasis ICD Codes: K80.20 - Calculus of gallbladder without cholecystitis without obstruction Status: Chronic Plan: Known to have cholelithiasis as outpatient. CT findings in hospital confirm cholelithiasis without cholecystitis. Possibly this is causing some biliary colic which may explain her abdominal pain (which is now resolved) - Monitor clinically (4) Essential hypertension ICD Codes: I10 - Essential (primary) hypertension Status: Chronic Plan: Well controlled as outpatient, mildly hypertensive on admission - Continue home lisinopril - Diltiazem as above (5) Diabetes mellitus ICD Codes: E11.9 - Type 2 diabetes mellitus without complications Status: Chronic Plan: Impression: Chronic T2DM - Continue home metformin (low risk of lactic acidosis or other complication; no further imaging studies with IV contrast likely needed) - Accu-checks AC&HS - Diet diabetic (6) Cough ICD Codes: R05 - Cough Status: Acute Plan: Impression: Cough on inspirations in association with leukocytosis -Will check CXR -No acute cardiopulmonary disease (7) Nasal swelling ICD Codes: R22.0 - Localized swelling, mass and lump, head Status: Acute Plan: -Will check CT sinuses and head CT to confirm lack of hematoma prior to initiating Eliquis anticoagulation Impression: Patient with nasal bridge pain, swelling on exam. Patient is not aware of fall injury or loss of consciousness. Patient able to breathe through nose well (8) Debility, unspecified ICD Codes: R53.81 - Other malaise Status: Acute Plan: Impression: Weakness on exam; significantly weaker than normal per her PCP Dr. Tabares. Associated with myalgias? -Continue physical therapy -Rehabilitation recommended at this time -Continue occupational therapy -Will check ESR (9) FEN/PPX Status: Acute Plan: Fluids: None at this time Electrolytes: Monitor and replace PRN Nutrition: Diet diabetic DVT: Lovenox 30 mg SQ daily Pain: Tylenol and Motrin PRN CODE STATUS: No code / DNR Seen with Dr. Tabares, Dr. Drwe, Dr. Singletary (Raphael Umana MD, R3) Problem Qualifiers (1) UTI (urinary tract infection): Qualified Codes: N39.0 - Urinary tract infection, site not specified (2) Cholelithiasis: Qualified Codes: K80.20 - Calculus of gallbladder without cholecystitis without obstruction (3) Diabetes mellitus: Raphael Umana MD, R3 Feb 25, 2017 15:15 Bekah Tabares MD Feb 25, 2017 21:19
[2017-02-25] MEDS: DILTIAZEM-CD 180 MG CAP ER PO SCH (15:23)
[2017-02-25] MEDS ORDERED: INSULIN ASPART SUPPLEMENTAL SCALE SQ SCH (17:00)
[2017-02-25] MEDS: ENOXAPARIN SODIUM 30 MG/0.3 ML SYRINGE SQ SCH (17:07)
[2017-02-25] MEDS: cefTRIAXone INJ 1,000 MG in SODIUM CHLORIDE 0.9% INJ 100 ML IV SCH (17:07)
--- NOTE | 2017-02-25 17:36 | EKG ---
Date Performed: 02/24/2017 Time Performed: 11:49:40 PTAGE: 86 years EKG: Sinus rhythm LEFT BUNDLE BRANCH BLOCK When compared to previous rtracing, there is a new left bundle Branch block . ABNORMAL ECG PREVIOUS TRACING : 11/23/2002 16.45 DOCTOR: Rita Slade Interpretating Date/Time 02/25/2017 17:34:42
--- NOTE | 2017-02-25 17:37 | EKG ---
Date Performed: 02/24/2017 Time Performed: 15:27:03 PTAGE: 86 years EKG: ATRIAL FIBRILLATION WITH RAPID VENTRICULAR RESPONSE LEFT BUNDLE BRANCH BLOCK When compared to previous tracing, patient is now in atrial Fibrillation with a rapid ventricular response. ABNORMA L ECG PREVIOUS TRACING : 02/24/2017 11.49.40 DOCTOR: Rita Slade Interpretating Date/Time 02/25/2017 17:36:19
--- NOTE | 2017-02-25 17:40 | EKG ---
Date Performed: 02/24/2017 Time Performed: 22:53:24 PTAGE: 86 years EKG: Sinus rhythm Left bundle branch block Since previous tracing, no significant change noted Abnormal ECG PREVIOUS TRACING : 02/24/2017 17.59 DOCTOR: Rita Slade Interpretating Date/Time 02/25/2017 17:39:00
--- NOTE | 2017-02-25 17:40 | EKG ---
Date Performed: 02/24/2017 Time Performed: 17:59:46 PTAGE: 86 years EKG: Sinus rhythm LEFT BUNDLE BRANCH BLOCK When compared to previous tracing, patient has now converted From atrial fi brillation to sinus rhythm. ABNORMAL ECG PREVIOUS TRACING : 02/24/2017 15.27.03 DOCTOR: Rita Slade Interpretating Date/Time 02/25/2017 17:38:39
--- NOTE | 2017-02-25 18:51 | RADRPT ---
EXAM DATE/TIME: 02/25/2017 18:11 [facility] COMPARISON: CT BRAIN W/O CONTRAST, September 01, 2015, 18:55. INDICATIONS : Patient fell at home. RADIATION DOSE: 45.09 CTDIvol (mGy) MEDICAL HISTORY : Cardiovascular disease. Hypertension. Diabetes mellitus type 1. SURGICAL HISTORY : None. ENCOUNTER: Initial ACUITY: 2 days PAIN SCALE: 0/10 LOCATION: cranial TECHNIQUE: Multiple contiguous axial images were obtained of the head. Using automated exposure control and adj ustment of the mA and/or kV according to patient size, radiation dose was kept as low as reasonably a chievable to obtain optimal diagnostic quality images. DICOM format image data is available electro nically for review and comparison. FINDINGS: CEREBRUM: Areas of low-attenuation are seen. Mild cerebral atrophy. The ventricles are normal for age. No evid ence of midline shift, mass lesion, hemorrhage or acute infarction. No extra-axial fluid collections are seen. POSTERIOR FOSSA: The cerebellum and brainstem are intact. The 4th ventricle is midline. The cerebellopontine angle i s unremarkable. EXTRACRANIAL: The visualized portion of the orbits is intact. SKULL: The calvaria is intact. No evidence of skull fracture. CONCLUSION: 1. Mild cerebral atrophy and chronic ischemic small vessel vasculopathy. Jamison Kumar MD on February 25, 2017 at 18:48 Board Certified Radiologist. This report was verified electronically.
--- NOTE | 2017-02-25 18:53 | RADRPT ---
EXAM DATE/TIME: 02/25/2017 18:15 [facility] COMPARISON: No previous studies available for comparison. INDICATIONS : Patient fell at home, evaluate for nasal fracture. RADIATION DOSE: 27.18 CTDIvol (mGy) MEDICAL HISTORY : Cardiovascular disease. Hypertension. Diabetes mellitus type 1. SURGICAL HISTORY : None. ENCOUNTER: Initial ACUITY: 2 days PAIN SCORE: 0/10 LOCATION: facial TECHNIQUE: Volumetric scanning of the paranasal sinuses was performed. Using automated exposure control and adj ustment of the mA and/or kV according to patient size, radiation dose was kept as low as reasonably a chievable to obtain optimal diagnostic quality images. DICOM format image data is available electro nically for review and comparison. FINDINGS: MAXILLARY SINUSES: Normal. No significant mucosal thickening or fluid. Infundibula are patent. No anomalous inferior orbital ethmoid (Elmer) air cells. ETHMOID SINUSES: Normal. No significant mucosal thickening or fluid. Fovea ethmoidal and lamina papyracea are symmet jnuaid and intact. SPHENOID SINUSES: Normal. No significant mucosal thickening or fluid. Sphenoethmoidal recesses are patent. No bony d ehiscence. FRONTAL SINUSES: Normal. No significant mucosal thickening or fluid. Frontal recesses are patent. No anomalous fron billie air cells. NASAL FOSSA: Normal. No septal perforation or deviation. No xiomara bullosa or paradoxical turbinates are identifie d. OTHER: Normal. Limited views of the skull base and orbits are unremarkable. Soft tissue swelling on the ri ght. CONCLUSION: Soft tissue swelling without fracture. Jamison Kumar MD on February 25, 2017 at 18:49 Board Certified Radiologist. This report was verified electronically.
[2017-02-25] MEDS: INSULIN ASPART SUPPLEMENTAL SCALE SQ SCH (20:46)
[2017-02-25] MEDS ORDERED: APIXABAN 2.5 MG TABLET PO SCH (21:00)
[2017-02-25] MEDS: APIXABAN 2.5 MG TABLET PO SCH (22:48)
[2017-02-26] VITALS (18 sets, daily range): BP systolic 129–152; BP diastolic 61–75; PULSE 63–92; RESP 16–20; TEMP 97.9–100.5; O2SAT 92–96
[2017-02-26] MEDS: IBUPROFEN 400 MG TAB PO PRN (01:14)
[2017-02-26 04:20] LABS: BASOPHIL # 0.2 TH/MM3 (0-0.2); BASOPHIL % 1.3 % (0.0-2.0); EOSINOPHIL # 0.6 TH/MM3 (0-0.4); EOSINOPHIL % 3.4 % (0.0-4.0); HEMATOCRIT 32.8 % (35.0-46.0); HEMOGLOBIN 11.4 GM/DL (11.6-15.3); LYMPH % 10.9 % (9.0-44.0); LYMPHOCYTE # 1.9 TH/MM3 (1.0-4.8); MEAN CELL VOLUME 88.7 FL (80.0-100.0); MEAN CORPUSCULAR HEMOGLOBIN 30.9 PG (27.0-34.0); MEAN CORPUSCULAR HGB CONC 34.8 % (32.0-36.0); MEAN PLATELET VOLUME 8.1 FL (7.0-11.0); MONOCYTE # 1.4 TH/MM3 (0-0.9); NEUT % 76.4 % (16.0-70.0); PLATELET COUNT 489 TH/MM3 (150-450); RED CELL DISTRIBUTION WIDTH 12.1 % (11.6-17.2); WHITE BLOOD COUNT 17.1 TH/MM3 (4.0-11.0)
[2017-02-26 04:39] LABS: BICARBONATE 25.7 MEQ/L (21.0-32.0); CALCIUM 8.9 MG/DL (8.5-10.1); CREATININE 0.61 MG/DL (0.50-1.00)
[2017-02-26 04:43] LABS: CHOLESTEROL/ HDL RATIO 3.34 RATIO; HDL CHOLESTEROL 33.5 MG/DL (40.0-60.0)
[2017-02-26 04:45] LABS: WESTERGREN SEDIMENTATION RATE 121 mm/hr (0-30)
[2017-02-26] MEDS: INSULIN ASPART SUPPLEMENTAL SCALE SQ SCH ×4 (08:00→20:18)
[2017-02-26] MEDS: LISINOPRIL 10 MG TAB PO SCH (08:20)
[2017-02-26] MEDS: SODIUM CHLORIDE 0.9% FLUSH 10 ML FLUSH IV FLUSH SCH ×2 (08:20→20:11)
[2017-02-26] MEDS: APIXABAN 2.5 MG TABLET PO SCH ×2 (08:20→20:12)
[2017-02-26] MEDS: DILTIAZEM-CD 180 MG CAP ER PO SCH (08:20)
[2017-02-26] MEDS: DOCUSATE SODIUM 50 MG/SENNA 8.6 MG TAB PO SCH ×2 (08:20→20:12)
--- NOTE | 2017-02-26 11:27 | HHI.FPPN ---
Subjective Remarks Patient seen and examined approx 0940. No acute events overnight. Feels well except still somewhat globally weak, has mild intermittent cough. Elbow pain improved. Mild pleuritic CP on very deep inspiration, otherwise no CP. No SOB. (Timoteo Singletary MD) Objective Vitals Vital Signs Date Time Temp Pulse Resp B/P (MAP) Pulse Ox O2 Delivery O2 Flow Rate FiO2 02/26/17 09:00 87 02/26/17 08:00 74 02/26/17 07:15 98.1 75 20 138/64 (88) 96 02/26/17 07:10 96 Room Air 02/26/17 07:10 80 02/26/17 06:01 63 02/26/17 05:09 69 02/26/17 04:19 72 02/26/17 03:03 78 02/26/17 03:03 98.4 77 16 141/66 (91) 92 02/26/17 03:03 92 Room Air 02/26/17 02:56 77 02/26/17 01:07 71 02/26/17 00:33 78 02/25/17 23:23 94 Room Air 02/25/17 23:23 97.9 70 17 121/60 (80) 94 02/25/17 23:21 67 02/25/17 22:30 68 02/25/17 21:41 74 02/25/17 20:18 72 02/25/17 20:10 98 21 02/25/17 19:42 86 02/25/17 19:30 98.1 70 16 120/56 (77) 95 02/25/17 19:30 95 Room Air 02/25/17 18:00 82 02/25/17 17:00 87 02/25/17 16:00 85 02/25/17 15:42 97.8 77 16 147/64 (91) 97 02/25/17 15:42 97 Room Air 02/25/17 15:00 75 02/25/17 14:00 76 02/25/17 13:00 72 02/25/17 12:00 68 02/25/17 11:46 97.4 67 16 102/54 (70) 94 02/25/17 11:08 96 Room Air I/O 02/25/17 02/25/17 02/25/17 02/26/17 02/26/1718 07:00 15:00 23:00 07:00 15:00 23:00 Intake Total 480 ml 840 ml 360 ml Output Total 275 ml Balance 205 ml 840 ml 360 ml Intake Oral 480 ml 840 ml 360 ml Output Urine Total 275 ml # Voids 3 2 # Bowel Movements 1 (Timoteo Singletary MD) Result Diagram: 02/26/17 0351 02/26/17 0351 Imaging Last Impressions Sinuses CT 02/25/17 0000 Signed Impressions: Service Date/Time: Saturday, February 25, 2017 18:15 - CONCLUSION: Soft tissue swelling without fracture. Jamison Kumar MD Head CT 02/25/17 0000 Signed Impressions: Service Date/Time: Saturday, February 25, 2017 18:11 - CONCLUSION: 1. Mild cerebral atrophy and chronic ischemic small vessel vasculopathy. Jamison Kumar MD Chest X-Ray 02/25/17 0000 Signed Impressions: Service Date/Time: Saturday, February 25, 2017 13:20 - CONCLUSION: No acute cardiopulmonary disease. Ashley Diaz MD Abdomen/Pelvis CT 02/24/17 1234 Signed Impressions: Service Date/Time: Friday, February 24, 2017 14:36 - CONCLUSION: Cholelithiasis. Ashley Diaz MD Objective Remarks GENERAL: Thin elderly white female sitting up in bed in [facility] SKIN: No rashes, ecchymoses or lesions. Cool and dry. CARDIOVASCULAR: NRRR; no murmurs RESPIRATORY: normal rate and effort, mild crackles at B/l bases, cleared with cough ABD: Soft, NDNT NEUROLOGICAL: Awake and alert. Grossly nonfocal Medications and IVs Current Medications Medications (Trade) Dose Ordered Sig/Janna Route Start Time Stop Time Status Last Admin (NS Flush) 2 ml UNSCH PRN IV FLUSH 02/24/17 16:45 (NS Flush) 2 ml BID IV FLUSH 02/24/17 21:00 02/26/17 08:20 (Tylenol) 650 mg Q6H PRN PO 02/24/17 16:45 (Motrin) 400 mg Q6H PRN PO 02/24/17 16:45 02/26/17 01:14 (Narcan Inj) 0.4 mg UNSCH PRN IV PUSH 02/24/17 16:45 (Renetta-Colace) 1 tab BID PO 02/24/17 21:00 02/25/17 20:45 (Milk Of Magnesia Liq) 30 ml Q12H PRN PO 02/24/17 16:45 (Senokot) 17.2 mg Q12H PRN PO 02/24/17 16:45 (Dulcolax Supp) 10 mg DAILY PRN RECTAL 02/24/17 16:45 (Lactulose Liq) 30 ml DAILY PRN PO 02/24/17 16:45 (Prinivil) 10 mg DAILY PO 02/25/17 09:00 02/26/17 08:20 Ceftriaxone Sodium 1000 mg/ Sodium Chloride 100 ml @ 200 mls/hr Q24H IV 02/24/17 17:00 02/25/17 17:07 (Cardizem Cd) 180 mg DAILY PO 02/25/17 14:30 02/26/17 08:20 (D50w (Vial) Inj) 50 ml UNSCH PRN IV PUSH 02/25/17 17:15 (Glucagon Inj) 1 mg UNSCH PRN OTHER 02/25/17 17:15 (NovoLOG SUPPLEMENTAL SCALE) 1 ACHS SLIDING SCALE SQ 02/25/17 21:00 02/26/17 08:00 (Eliquis) 2.5 mg BID PO 02/25/17 23:00 02/26/17 08:20 (Timoteo Singletary MD) A/P Assessment and Plan 86 yo female with h/o DM, HTN, cholelithiasis presenting with: (Timoteo Singletary MD) Attending Attestation Patient seen and examined, discussed with Dr. Singletary. I agree with assessment and management as documented and discussed with me. Pt continues to require PT and will need placement for rehab. Additional exam finding: no bitemporal tenderness. (Bekah Tabares MD) Problem List: (1) Atrial fibrillation with RVR ICD Codes: I48.91 - Unspecified atrial fibrillation Status: Resolved Plan: Patient found to be in newly diagnosed AFib with RVR; rate controlled with Diltiazem. [id number] score of 3 (5.9% thromboembolic risk). HAS-BLED score of 1. Globally weak but otherwise asymptomatic ACS ruled out: -Initially EKG showing normal sinus rhythm and LBBB; subsequent EKG with AFib , heart rate in 150s, persistent LBBB -Troponins negative x3 TSH wnl Echocardiogram- 60-65% EF; no wall motion abnormalities. Mild concentric LVH -NSR for last 24 hours, remove telemetry -Rate control: -continue daily 180mg Diltiazem ER -Anticoagulation: -Continue Eliquis 2.5 mg PO BID -discussed with cardiology (not formally consulted); LBBB possibly due to elevated HR, patient without typical cardiac symptoms and negative troponins -available PRN; recommended routine AFib work up (i.e., the above) (2) Debility, unspecified ICD Codes: R53.81 - Other malaise Status: Acute Plan: Weakness on exam; significantly weaker than normal per her PCP Dr. Tabares. Associated with myalgias? -Continue physical therapy -Rehabilitation recommended at this time -Continue occupational therapy (3) Leukocytosis ICD Codes: D72.829 - Elevated white blood cell count, unspecified Status: Acute Plan: WBC initially 19, trending downward with Rocephin Patient h/o diffuse intermittent body aches in various locations + EPPS (intermittent), no vision changes ESR very elevated (121) Crackles on pulmonary exam today, has cough Remainder of exam benign; CT without cholecystitis - Check formal PA & lateral chest x-ray - Continue Rocephin 1 gm IV daily - Depending on CXR findings, further w/u for either PNA or rheumatologic etiology (4) Cough ICD Codes: R05 - Cough Status: Acute Plan: See above plan (5) UTI (urinary tract infection) ICD Codes: N39.0 - Urinary tract infection, site not specified Status: Resolved Plan: UA: protein 30, ketones 10, leuk est small, WBC 9, occasional bacteria Urine culture- 50-100k mixed barb; suspect contaminant Likely source of leukocytosis is not UTI; see above (6) Cholelithiasis ICD Codes: K80.20 - Calculus of gallbladder without cholecystitis without obstruction Status: Chronic Plan: Known to have cholelithiasis as outpatient. CT findings in hospital confirm cholelithiasis without cholecystitis. Possibly this is causing some biliary colic which may explain her abdominal pain (which is now resolved) - Monitor clinically (7) Essential hypertension ICD Codes: I10 - Essential (primary) hypertension Status: Chronic Plan: Well controlled as outpatient, mildly hypertensive on admission - Continue home lisinopril - Diltiazem as above (8) Diabetes mellitus ICD Codes: E11.9 - Type 2 diabetes mellitus without complications Status: Chronic Plan: Impression: Chronic T2DM - Continue home metformin (low risk of lactic acidosis or other complication; no further imaging studies with IV contrast likely needed) - Accu-checks AC&HS - Diet diabetic (9) Nasal swelling ICD Codes: R22.0 - Localized swelling, mass and lump, head Status: Resolved Plan: -Will check CT sinuses and head CT to confirm lack of hematoma prior to initiating Eliquis anticoagulation Impression: Patient with nasal bridge pain, swelling on exam. Patient is not aware of fall injury or loss of consciousness. Patient able to breathe through nose well (10) FEN/PPX Status: Acute Plan: Fluids: None at this time Electrolytes: Monitor and replace PRN Nutrition: Diet diabetic DVT: On Eliquis Pain: Tylenol and Motrin PRN CODE STATUS: On further pondering, patient decided she would rather be full code. Discussed what this would entail in detail and patient is okay with CPR and intubation if necessary, has advance directives in place for more long-term decisions if needed dw Dr. Tabares (Timoteo Singletary MD) Problem Qualifiers (1) UTI (urinary tract infection): Qualified Codes: N39.0 - Urinary tract infection, site not specified (2) Cholelithiasis: Qualified Codes: K80.20 - Calculus of gallbladder without cholecystitis without obstruction (3) Diabetes mellitus: Timoteo Singletary MD Feb 26, 2017 11:27 Bekah Tabares MD Feb 27, 2017 15:00
--- NOTE | 2017-02-26 13:38 | RADRPT ---
EXAM DATE/TIME: 02/26/2017 12:35 [facility] COMPARISON: No previous studies available for comparison. INDICATIONS : Cough, possible pneumonia. MEDICAL HISTORY : A-fib. SURGICAL HISTORY : None. ENCOUNTER: Initial ACUITY: 2 days PAIN SCORE: 0/10 LOCATION: Bilateral chest FINDINGS: Minimal increased interstitial markings are noted bilaterally suggestive of minimal pulmonary vascula r congestion. The heart is mildly prominent. The lungs are otherwise clear. CONCLUSION: 1. Minimal increased interstitial markings suggestive of minimal pulmonary vascular congestion. 2. Mild cardiomegaly. Theo Dewitt MD on February 26, 2017 at 13:35 Board Certified Radiologist. This report was verified electronically.
[2017-02-26] MEDS: AZITHROMYCIN 250 MG TAB PO SCH (15:17)
[2017-02-26 15:52] LABS: RHEUMATOID FACTOR SCREEN NEGATIVE (NEGATIVE)
[2017-02-26] MEDS: cefTRIAXone INJ 1,000 MG in SODIUM CHLORIDE 0.9% INJ 100 ML IV SCH (16:57)
[2017-02-26] MEDS ORDERED: metFORMIN HCL 500 MG TAB PO SCH ×2 (18:00)
[2017-02-27] VITALS (8 sets, daily range): BP systolic 118–160; BP diastolic 58–72; PULSE 68–100; RESP 16–20; TEMP 97.7–99.5; O2SAT 94–96
[2017-02-27] MEDS: IBUPROFEN 400 MG TAB PO PRN ×2 (01:24→19:43)
[2017-02-27 05:58] LABS: BASOPHIL # 0.1 TH/MM3 (0-0.2); BASOPHIL % 0.8 % (0.0-2.0); EOSINOPHIL # 0.2 TH/MM3 (0-0.4); EOSINOPHIL % 0.9 % (0.0-4.0); HEMATOCRIT 32.4 % (35.0-46.0); HEMOGLOBIN 11.2 GM/DL (11.6-15.3); LYMPH % 9.9 % (9.0-44.0); LYMPHOCYTE # 1.9 TH/MM3 (1.0-4.8); MEAN CELL VOLUME 88.7 FL (80.0-100.0); MEAN CORPUSCULAR HEMOGLOBIN 30.6 PG (27.0-34.0); MEAN CORPUSCULAR HGB CONC 34.5 % (32.0-36.0); MEAN PLATELET VOLUME 8.4 FL (7.0-11.0); MONO % 8.1 % (0.0-8.0); MONOCYTE # 1.5 TH/MM3 (0-0.9); NEUT % 80.3 % (16.0-70.0); PLATELET COUNT 535 TH/MM3 (150-450); RED BLOOD COUNT 3.65 MIL/MM3 (4.00-5.30); RED CELL DISTRIBUTION WIDTH 12.1 % (11.6-17.2); WHITE BLOOD COUNT 18.6 TH/MM3 (4.0-11.0)
[2017-02-27 06:22] LABS: BICARBONATE 25.5 MEQ/L (21.0-32.0); CALCIUM 8.9 MG/DL (8.5-10.1); CREATININE 0.51 MG/DL (0.50-1.00)
[2017-02-27] MEDS ORDERED: POTASSIUM CHLORIDE 25 MEQ EFFERVESCENT TAB PO ONE (07:15)
[2017-02-27] MEDS: INSULIN ASPART SUPPLEMENTAL SCALE SQ SCH ×4 (08:00→21:40)
[2017-02-27 08:33] LABS: WESTERGREN SEDIMENTATION RATE 99 mm/hr (0-30)
[2017-02-27] MEDS: AZITHROMYCIN 250 MG TAB PO SCH (08:44)
[2017-02-27] MEDS: SODIUM CHLORIDE 0.9% FLUSH 10 ML FLUSH IV FLUSH SCH ×2 (08:44→21:40)
[2017-02-27] MEDS: DILTIAZEM-CD 180 MG CAP ER PO SCH (08:44)
[2017-02-27] MEDS: DOCUSATE SODIUM 50 MG/SENNA 8.6 MG TAB PO SCH ×2 (08:44→21:39)
[2017-02-27] MEDS: LISINOPRIL 10 MG TAB PO SCH (08:45)
[2017-02-27] MEDS: APIXABAN 2.5 MG TABLET PO SCH ×2 (08:45→21:39)
--- NOTE | 2017-02-27 12:11 | HHI.FPPN ---
Subjective Remarks No acute events overnight. Cough stable but improved. Not short of breath, still feeling globally weak. No CP, no abdominal pain. (Timoteo Singletary MD) Objective Vitals Vital Signs Date Time Temp Pulse Resp B/P (MAP) Pulse Ox O2 Delivery O2 Flow Rate FiO2 02/27/17 11:48 94 02/27/17 08:45 Room Air 2.00 21 02/27/17 08:00 98.1 68 20 118/58 (78) 94 02/27/17 05:05 97.7 68 16 122/59 (80) 94 02/27/17 03:00 Room Air 02/26/17 23:33 99.7 89 16 143/63 (89) 94 02/26/17 21:25 99.4 91 16 145/64 (91) 93 02/26/17 20:00 94 21 02/26/17 19:22 94 Room Air 02/26/17 19:22 100.5 92 16 138/75 (96) 94 02/26/17 15:00 98.3 73 18 152/67 (95) 93 02/26/17 15:00 97 Room Air I/O 02/26/17 02/26/17 02/26/17 02/27/17 02/27/17 02/27/17 07:00 15:00 23:00 07:00 15:00 23:00 Intake Total 360 ml 820 ml 120 ml Output Total 700 ml 900 ml Balance 360 ml 120 ml -780 ml Intake Oral 360 ml 720 ml 120 ml IV Total 100 ml Output Urine Total 700 ml 900 ml # Voids 2 4 # Bowel Movements 1 1 0 (Timoteo Singletary MD) Result Diagram: 02/27/17 0414 02/27/17 0414 Imaging Last Impressions Chest X-Ray 02/26/17 0000 Signed Impressions: Service Date/Time: Sunday, February 26, 2017 12:35 - CONCLUSION: 1. Minimal increased interstitial markings suggestive of minimal pulmonary vascular congestion. 2. Mild cardiomegaly. Theo Dewitt MD Sinuses CT 02/25/17 0000 Signed Impressions: Service Date/Time: Saturday, February 25, 2017 18:15 - CONCLUSION: Soft tissue swelling without fracture. Jamison Kumar MD Head CT 02/25/17 0000 Signed Impressions: Service Date/Time: Saturday, February 25, 2017 18:11 - CONCLUSION: 1. Mild cerebral atrophy and chronic ischemic small vessel vasculopathy. Jamison Kumar MD Abdomen/Pelvis CT 02/24/17 1234 Signed Impressions: Service Date/Time: Friday, February 24, 2017 14:36 - CONCLUSION: Cholelithiasis. Ashley Mitch Diaz MD Objective Remarks GENERAL: Thin elderly white female sitting up in bed in [place] SKIN: No rashes, ecchymoses or lesions. Cool and dry. CARDIOVASCULAR: NRRR; no murmurs RESPIRATORY: normal rate and effort, CTAB ABD: Soft, NDNT NEUROLOGICAL: Awake and alert. Grossly nonfocal Medications and IVs Current Medications Medications (Trade) Dose Ordered Sig/Janna Route Start Time Stop Time Status Last Admin (NS Flush) 2 ml UNSCH PRN IV FLUSH 02/24/17 16:45 (NS Flush) 2 ml BID IV FLUSH 02/24/17 21:00 02/27/17 08:44 (Tylenol) 650 mg Q6H PRN PO 02/24/17 16:45 (Motrin) 400 mg Q6H PRN PO 02/24/17 16:45 02/27/17 01:24 (Narcan Inj) 0.4 mg UNSCH PRN IV PUSH 02/24/17 16:45 (Renetta-Colace) 1 tab BID PO 02/24/17 21:00 02/27/17 08:44 (Milk Of Magnesia Liq) 30 ml Q12H PRN PO 02/24/17 16:45 (Senokot) 17.2 mg Q12H PRN PO 02/24/17 16:45 (Dulcolax Supp) 10 mg DAILY PRN RECTAL 02/24/17 16:45 (Lactulose Liq) 30 ml DAILY PRN PO 02/24/17 16:45 (Prinivil) 10 mg DAILY PO 02/25/17 09:00 02/27/17 08:45 Ceftriaxone Sodium 1000 mg/ Sodium Chloride 100 ml @ 200 mls/hr Q24H IV 02/24/17 17:00 02/26/17 16:57 (Cardizem Cd) 180 mg DAILY PO 02/25/17 14:30 02/27/17 08:44 (D50w (Vial) Inj) 50 ml UNSCH PRN IV PUSH 02/25/17 17:15 (Glucagon Inj) 1 mg UNSCH PRN OTHER 02/25/17 17:15 (NovoLOG SUPPLEMENTAL SCALE) 1 ACHS SLIDING SCALE SQ 02/25/17 21:00 02/26/17 20:18 (Eliquis) 2.5 mg BID PO 02/25/17 23:00 02/27/17 08:45 (Zithromax) 500 mg DAILY PO 02/26/17 15:00 02/27/17 08:44 (Timoteo Singletary MD) A/P Assessment and Plan 86 yo female with h/o DM, HTN, cholelithiasis presenting with: Discharge Planning Pending work-up for leukocytosis (Timoteo Singletary MD) Attending Attestation Patient seen and examined, discussed with resident team. Pt examined in afternoon with Dr. Drew. WBC and ESR remain elevated. Consider infection (no obvious infection) vs malignancy vs polymyalgia rheumatica Thorough skin exam nonrevealing - no ulcers, no splinter hemorrhages. Breast exam with palpable lump on left, 12 o'clock position. Check breast US on left to evaluate - abscess vs malignancy. Of note, pt with mammogram 12/2016 - abnormal bilaterally. Prior mammo 2013 was normal. Await US breast. If negative, will likely start prednisone (plus stomach protection) (Bekah Tabares MD) Problem List: (1) Atrial fibrillation with RVR ICD Codes: I48.91 - Unspecified atrial fibrillation Status: Resolved Plan: Patient found to be in newly diagnosed AFib with RVR; rate controlled with Diltiazem. [id number] score of 3 (5.9% thromboembolic risk). HAS-BLED score of 1. Globally weak but otherwise asymptomatic ACS ruled out: -Initially EKG showing normal sinus rhythm and LBBB; subsequent EKG with AFib , heart rate in 150s, persistent LBBB -Troponins negative x3 TSH wnl Echocardiogram- 60-65% EF; no wall motion abnormalities. Mild concentric LVH -NSR for last 24 hours, remove telemetry -Rate control: -continue daily 180mg Diltiazem ER -Anticoagulation: -Continue Eliquis 2.5 mg PO BID -discussed with cardiology (not formally consulted); LBBB possibly due to elevated HR, patient without typical cardiac symptoms and negative troponins -available PRN; recommended routine AFib work up (i.e., the above) (2) Debility, unspecified ICD Codes: R53.81 - Other malaise Status: Acute Plan: Weakness on history; possible myalgias. See below -Continue physical therapy -Rehabilitation recommended at this time -Continue occupational therapy (3) Leukocytosis ICD Codes: D72.829 - Elevated white blood cell count, unspecified Status: Acute Plan: WBC initially 19; persistently elevated Patient h/o diffuse intermittent body aches in various locations + EPPS (intermittent), no vision changes ESR very elevated (121, 90s) RF screen negative Remainder of exam benign; CT without cholecystitis PA & lateral CXR with findings as above - Continue Rocephin 1 gm IV daily + azithromycin 500 mg daily - Unlikely this is due to pneumonia; will perform full skin exam to r/o ulcer - Strong suspicion for polymyalgia rheumatica; considering starting prednisone - Check CRP - Await CCP and SUSANNE screens (4) Cough ICD Codes: R05 - Cough Status: Acute Plan: See above plan (5) Cholelithiasis ICD Codes: K80.20 - Calculus of gallbladder without cholecystitis without obstruction Status: Chronic Plan: Known to have cholelithiasis as outpatient. CT findings in hospital confirm cholelithiasis without cholecystitis. Possibly this is causing some biliary colic which may explain her abdominal pain (which is now resolved) - Monitor clinically (6) Essential hypertension ICD Codes: I10 - Essential (primary) hypertension Status: Chronic Plan: Well controlled as outpatient - Continue home lisinopril - Diltiazem as above (7) Diabetes mellitus ICD Codes: E11.9 - Type 2 diabetes mellitus without complications Status: Chronic Plan: Chronic T2DM - Hold home metformin; continue low dose SSI - Accu-checks AC&HS - Diet diabetic (8) Nasal swelling ICD Codes: R22.0 - Localized swelling, mass and lump, head Status: Resolved Plan: CT sinuses with nasal soft tissue swelling, no fracture Clinically swelling improved - Continue to monitor (9) FEN/PPX Status: Acute Plan: Fluids: None at this time Electrolytes: Monitor and replace PRN Nutrition: Diet diabetic DVT: On Eliquis Pain: Tylenol and Motrin PRN CODE STATUS: On further pondering, patient decided she would rather be full code. Discussed what this would entail in detail and patient is okay with CPR and intubation if necessary, has advance directives in place for more long-term decisions if needed dw Dr. Tabares (Timoteo Singletary MD) Problem Qualifiers (1) Cholelithiasis: Qualified Codes: K80.20 - Calculus of gallbladder without cholecystitis without obstruction (2) Diabetes mellitus: Timoteo Singletary MD Feb 27, 2017 12:11 Bekah Tabares MD Feb 27, 2017 15:12
[2017-02-27] MEDS ORDERED: LISI10TA3 PO (14:44)
--- NOTE | 2017-02-27 15:58 | HHI.PR ---
Addendum to Inpatient Note Addendum Reason: Additional Documentation Additional Information S: Went to speak to patient about our plans and her labs results this afternoon. Spoke to patient about her previous considering diagnostic tests, mammogram 12/2016 (BIRADS 0 for irregular nodular density within the outer mid portion of the right breast and lobulated nodular density within the outer mid portion of the left breast, previous mammo in 2012 was normal) and thyroid nodule. She expressed that she is 86 years old and did not wish to undergo further mammography or biopsies. She did consent to an ultrasound of her breasts after the exam was conducted (see below) O: Skin: Full body skin exam. No lesions or skin break down noted. Breast exam: Possible lump 3x3cm found in left mid breast. No nipple discharge or skin irregularities A/P: 86yo with leukocytosis and elevated ESR. Infection vs malignancy vs polymyalgia rheumatica No signs of infection that can be detected thus far. Urine cx was negative. Will conduct a left breast ultrasound to get a closer look at possible lump in left breast. Rheumatologic studies are pending. PMR is a possible diagnosis due to patient's overall feeling of weakness and locations of pain. May start on low dose steroids after further investigation. Pamela Drew MD R1 Feb 27, 2017 15:58
--- NOTE | 2017-02-27 16:09 | RADRPT ---
EXAM DATE/TIME: 02/27/2017 15:07 [facility] COMPARISON: No previous studies available for comparison. EXTERNAL COMPARISON : [facility], MAMMOGRAM, SCREENING, November 27, 2010, August 10, 2009, July 22, 2008, May 24 08. INDICATIONS : Left breast palpable lump. MEDICAL HISTORY : Hypertension. Carcinoma, basal cell. Abdominal pain. Weakness. Incontinence. Diabetes. SURGICAL HISTORY : Skin cancer removed from nose. ENCOUNTER: Initial ACUITY: 1 day PAIN SCORE: 1/10 LOCATION: Left breast. FINDINGS: Examination of the left breast with dedicated and focused attention to the area of the palpable lump demonstrates an approximate 9 mm mainly cystic partially septated nodule 2: 00 position 2 cm from the nipple could be complex cysts. There is no mass at 12:00 position. CONCLUSION: Probably a complicated cyst and 2:00 position without any hypervascularity and followup is suggested with left breast ultrasound and mammogram in 6 months. Ashley Diaz MD on February 27, 2017 at 16:06 Board Certified Radiologist. This report was verified electronically.
[2017-02-27] MEDS: cefTRIAXone INJ 1,000 MG in SODIUM CHLORIDE 0.9% INJ 100 ML IV SCH (17:03)
[2017-02-28 04:20] VITALS: BP 119/58; PULSE 76; RESP 18; TEMP 98.2; O2SAT 96
[2017-02-28 08:00] VITALS: BP 159/93; PULSE 126; RESP 22; TEMP 97.5; O2SAT 97
[2017-02-28 08:08] LABS: BASOPHIL # 0.1 TH/MM3 (0-0.2); BASOPHIL % 0.5 % (0.0-2.0); EOSINOPHIL # 0.4 TH/MM3 (0-0.4); HEMATOCRIT 37.1 % (35.0-46.0); HEMOGLOBIN 12.5 GM/DL (11.6-15.3); MEAN CELL VOLUME 88.6 FL (80.0-100.0); MEAN CORPUSCULAR HEMOGLOBIN 29.8 PG (27.0-34.0); MEAN CORPUSCULAR HGB CONC 33.7 % (32.0-36.0); MONO % 8.2 % (0.0-8.0); MONOCYTE # 1.6 TH/MM3 (0-0.9); NEUT % 79.3 % (16.0-70.0); PLATELET COUNT 633 TH/MM3 (150-450); RED BLOOD COUNT 4.19 MIL/MM3 (4.00-5.30); RED CELL DISTRIBUTION WIDTH 12.5 % (11.6-17.2); WHITE BLOOD COUNT 20.1 TH/MM3 (4.0-11.0)
[2017-02-28 08:33] LABS: ALBUMIN 2.2 GM/DL (3.4-5.0); ALT (GPT) 39 U/L (10-53); AST (GOT) 23 U/L (15-37); BICARBONATE 24.3 MEQ/L (21.0-32.0); BLOOD UREA NITROGEN 5 MG/DL (7-18); CALCIUM 9.4 MG/DL (8.5-10.1); CHLORIDE 101 MEQ/L (98-107); CREATININE 0.45 MG/DL (0.50-1.00); GLOMERULAR FILTRATION RATE 132 ML/MIN (>89); GLUCOSE,RANDOM 172 MG/DL (74-106); PHOSPHORUS 2.9 MG/DL (2.5-4.9); SODIUM (NA) 136 MEQ/L (136-145)
[2017-02-28 08:35] LABS: ALKALINE PHOSPHATASE 139 U/L (45-117); TOTAL BILIRUBIN ADULT 0.4 MG/DL (0.2-1.0); TOTAL PROTEIN 7.5 GM/DL (6.4-8.2)
[2017-02-28] MEDS: DOCUSATE SODIUM 50 MG/SENNA 8.6 MG TAB PO SCH (09:10)
[2017-02-28] MEDS: SODIUM CHLORIDE 0.9% FLUSH 10 ML FLUSH IV FLUSH SCH (09:10)
[2017-02-28] MEDS: DILTIAZEM-CD 180 MG CAP ER PO SCH (09:10)
[2017-02-28] MEDS: AZITHROMYCIN 250 MG TAB PO SCH (09:10)
[2017-02-28] MEDS: APIXABAN 2.5 MG TABLET PO SCH (09:10)
[2017-02-28] MEDS: LISINOPRIL 10 MG TAB PO SCH (09:11)
[2017-02-28] MEDS: INSULIN ASPART SUPPLEMENTAL SCALE SQ SCH ×2 (09:11→11:36)
[2017-02-28] MEDS ORDERED: CARD180C5 PO (10:13)
[2017-02-28] MEDS ORDERED: APIX2.5T PO (10:13)
[2017-02-28] MEDS ORDERED: PRED10 PO (10:13)
--- NOTE | 2017-02-28 10:17 | HHI.DCPOC ---
Discharge Care Plan Diagnosis: (1) Polymyalgia rheumatica (2) Atrial fibrillation with RVR (3) Leukocytosis Goals to Promote Your Health * To prevent worsening of your condition and complications * To maintain your health at the optimal level Directions to Meet Your Goals Follow up with Dr. Tabares Take your medications as prescribed Follow your dietary instruction Follow activity as directed Keep your appointments as scheduled Take your immunizations and boosters as scheduled If your symptoms worsen call your PCP, if no PCP go to Urgent Care Center or Emergency Room Smoking is Dangerous to Your Health. Avoid second hand smoke Call the 24-hour hour crisis hotline for domestic abuse at Pamela Drew MD R1 Feb 28, 2017 10:17
--- NOTE | 2017-02-28 10:20 | HHI.FPPN ---
Subjective Remarks No acute events overnight. Still feels weak with her right arm. Has nosebleed but not continuous. Band like headache posteriorly, improved with tylenol / motrin. No CP/SOB/abdominal pain. (Timoteo Singletary MD) Objective Vitals Vital Signs Date Time Temp Pulse Resp B/P (MAP) Pulse Ox O2 Delivery O2 Flow Rate FiO2 02/28/17 08:00 97.5 126 22 159/93 (115) 97 02/28/17 04:20 98.2 76 18 119/58 (78) 96 02/27/17 23:45 97.8 69 18 145/64 (91) 94 02/27/17 22:19 95 Nasal Cannula 2.00 02/27/17 20:00 Room Air 02/27/17 19:45 98.0 100 18 156/71 (99) 94 02/27/17 17:00 Room Air 2.00 21 02/27/17 16:00 99.5 89 20 160/72 (101) 95 02/27/17 12:00 Room Air 2.00 21 02/27/17 12:00 98.3 80 20 136/63 (87) 96 02/27/17 11:48 94 I/O 02/27/17 02/27/17 02/27/17 02/28/17 02/28/17 02/28/17 07:00 15:00 23:00 07:00 15:00 23:00 Intake Total 120 ml 100 ml 240 ml Output Total 900 ml 1650 ml Balance -780 ml 100 ml -1410 ml Intake Oral 120 ml 240 ml IV Total 100 ml Output Urine Total 900 ml 1650 ml # Voids 1 # Bowel Movements 0 0 (Timoteo Singletary MD) Result Diagram: 02/28/1727 02/28/17 0727 Imaging Last Impressions Breast Ultrasound 02/27/17 1441 Signed Impressions: Service Date/Time: February 15:07 - CONCLUSION: Probably a complicated cyst and 2:00 position without any hypervascularity and followup is suggested with left breast ultrasound and mammogram in 6 months. Ashley Diaz MD Chest X-Ray 02/26/17 0000 Signed Impressions: Service Date/Time: Sunday, February 26, 2017 12:35 - CONCLUSION: 1. Minimal increased interstitial markings suggestive of minimal pulmonary vascular congestion. 2. Mild cardiomegaly. Theo Dewitt MD Sinuses CT 02/25/17 0000 Signed Impressions: Service Date/Time: Saturday, February 25, 2017 18:15 - CONCLUSION: Soft tissue swelling without fracture. Jamison Kumar MD Head CT 02/25/17 0000 Signed Impressions: Service Date/Time: Saturday, February 25, 2017 18:11 - CONCLUSION: 1. Mild cerebral atrophy and chronic ischemic small vessel vasculopathy. Jamison Kumar MD Abdomen/Pelvis CT 02/24/17 1234 Signed Impressions: Service Date/Time: Friday, February 24, 2017 14:36 - CONCLUSION: Cholelithiasis. K. Mitch Diaz MD Objective Remarks GENERAL: Thin elderly white female sitting up in bed in NAD SKIN: No rashes, ecchymoses or lesions. Cool and dry. CARDIOVASCULAR: NRRR; soft blowing 2/6 murmur heard best at RUSB RESPIRATORY: normal rate and effort, CTAB ABD: Soft, NDNT NEUROLOGICAL: Awake and alert. Uses help of left arm to raise R arm above her head. Biceps/triceps strength 5/5 bilaterally when prompted for effort. MSK: Tender over R biceps muscle. Medications and IVs Current Medications Medications (Trade) Dose Ordered Sig/Janna Route Start Time Stop Time Status Last Admin (NS Flush) 2 ml UNSCH PRN IV FLUSH 02/24/17 16:45 (NS Flush) 2 ml BID IV FLUSH 02/24/17 21:00 02/28/17 09:10 (Tylenol) 650 mg Q6H PRN PO 02/24/17 16:45 02/28/17 09:23 (Motrin) 400 mg Q6H PRN PO 02/24/17 16:45 02/27/17 19:43 (Narcan Inj) 0.4 mg UNSCH PRN IV PUSH 02/24/17 16:45 (Renetta-Colace) 1 tab BID PO 02/24/17 21:00 02/28/17 09:10 (Milk Of Magnesia Liq) 30 ml Q12H PRN PO 02/24/17 16:45 (Senokot) 17.2 mg Q12H PRN PO 02/24/17 16:45 (Dulcolax Supp) 10 mg DAILY PRN RECTAL 02/24/17 16:45 (Lactulose Liq) 30 ml DAILY PRN PO 02/24/17 16:45 (Prinivil) 10 mg DAILY PO 02/25/17 09:00 02/28/17 09:11 Ceftriaxone Sodium 1000 mg/ Sodium Chloride 100 ml @ 200 mls/hr Q24H IV 02/24/17 17:00 02/27/17 17:03 (Cardizem Cd) 180 mg DAILY PO 02/25/17 14:30 02/28/17 09:10 (D50w (Vial) Inj) 50 ml UNSCH PRN IV PUSH 02/25/17 17:15 (Glucagon Inj) 1 mg UNSCH PRN OTHER 02/25/17 17:15 (NovoLOG SUPPLEMENTAL SCALE) 1 ACHS SLIDING SCALE SQ 02/25/17 21:00 02/28/17 09:11 (Eliquis) 2.5 mg BID PO 02/25/17 23:00 02/28/17 09:10 (Zithromax) 500 mg DAILY PO 02/26/17 15:00 02/28/17 09:10 (Deltasone) 15 mg ONCE ONCE PO 02/28/17 10:15 02/28/17 10:16 UNV (Timoteo Singletary MD) A/P Assessment and Plan 86 yo female with h/o DM, HTN, cholelithiasis presenting with: Discharge Planning To SNF today for ongoing rehab (Timoteo Singletary MD) Attending Attestation Patient seen and examined, discussed with resident team. I agree with assessment and management as documented and discussed with me. (Bekah Tabares MD) Problem List: (1) Atrial fibrillation with RVR ICD Codes: I48.91 - Unspecified atrial fibrillation Status: Resolved Plan: Patient found to be in newly diagnosed AFib with RVR; rate controlled with Diltiazem. [id number] score of 3 (5.9% thromboembolic risk). HAS-BLED score of 1. Globally weak but otherwise asymptomatic ACS ruled out: -Initially EKG showing normal sinus rhythm and LBBB; subsequent EKG with AFib , heart rate in 150s, persistent LBBB -Troponins negative x3 TSH wnl Echocardiogram- 60-65% EF; no wall motion abnormalities. Mild concentric LVH -NSR for last 24 hours, remove telemetry -Rate control: -continue daily 180mg Diltiazem ER -Anticoagulation: -Continue Eliquis 2.5 mg PO BID -discussed with cardiology (not formally consulted); LBBB possibly due to elevated HR, patient without typical cardiac symptoms and negative troponins -available PRN; recommended routine AFib work up (i.e., the above) (2) Debility, unspecified ICD Codes: R53.81 - Other malaise Status: Acute Plan: Weakness on history; possible myalgias. See below -Continue physical therapy -Rehabilitation recommended at this time -Continue occupational therapy (3) Leukocytosis ICD Codes: D72.829 - Elevated white blood cell count, unspecified Status: Acute Plan: WBC initially 19; persistently elevated Patient h/o diffuse intermittent body aches in various locations + EPPS (intermittent), no vision changes ESR very elevated (121, 90s) RF screen negative Remainder of exam benign; CT without cholecystitis PA & lateral CXR with findings as above Breast U/S on left with a simple cyst, no abscess CRP 14 - Discontinue antibiotics; infectious etiology ruled out - Strong suspicion for polymyalgia rheumatica -Start prednisone 15 mg once now -D/C on 10 mg daily prednisone -GI PPX with ranitidine - Repeat CBC and ESR as outpatient - F/u CCP and SUSANNE screens - F/u peripheral smear (4) Cough ICD Codes: R05 - Cough Status: Resolved Plan: See above plan (5) Cholelithiasis ICD Codes: K80.20 - Calculus of gallbladder without cholecystitis without obstruction Status: Chronic Plan: Known to have cholelithiasis as outpatient. CT findings in hospital confirm cholelithiasis without cholecystitis. Possibly this is causing some biliary colic which may explain her abdominal pain (which is now resolved) - Monitor clinically (6) Essential hypertension ICD Codes: I10 - Essential (primary) hypertension Status: Chronic Plan: Well controlled as outpatient - Continue home lisinopril - Diltiazem as above (7) Diabetes mellitus ICD Codes: E11.9 - Type 2 diabetes mellitus without complications Status: Chronic Plan: Chronic T2DM - Resume home DM meds on discharge (8) Nasal swelling ICD Codes: R22.0 - Localized swelling, mass and lump, head Status: Resolved Plan: CT sinuses with nasal soft tissue swelling, no fracture Clinically swelling improved - Continue to monitor (Timoteo Singletary MD) Problem Qualifiers (1) Cholelithiasis: Qualified Codes: K80.20 - Calculus of gallbladder without cholecystitis without obstruction (2) Diabetes mellitus: Timoteo Singletary MD Feb 28, 2017 10:20 Bekah Tabares MD Mar 04, 2017 13:42
[2017-02-28 10:52] VITALS: PULSE 106
[2017-02-28] MEDS ORDERED: predniSONE 5 MG TAB PO ONE (11:00)
[2017-02-28 12:00] VITALS: BP 130/60; PULSE 76; RESP 20; TEMP 97.1; O2SAT 93
[2017-02-28 15:35] VITALS: O2SAT 93
--- NOTE | 2017-03-02 18:12 | HHI.DS ---
Discharge Summary Admission Date Feb 24, 2017 at 17:07 Discharge Date: Mar 02, 2017 Admitting Diagnosis AFib with RVR (1) Atrial fibrillation with RVR Diagnosis: Principal ICD Codes: I48.91 - Unspecified atrial fibrillation Status: Resolved (2) Polymyalgia rheumatica Diagnosis: Secondary ICD Codes: M35.3 - Polymyalgia rheumatica (3) Debility, unspecified Diagnosis: Secondary ICD Codes: R53.81 - Other malaise Status: Acute (4) Leukocytosis Diagnosis: Secondary ICD Codes: D72.829 - Elevated white blood cell count, unspecified Status: Acute (5) Cholelithiasis Diagnosis: Secondary ICD Codes: K80.20 - Calculus of gallbladder without cholecystitis without obstruction Status: Chronic (6) Essential hypertension Diagnosis: Secondary ICD Codes: I10 - Essential (primary) hypertension Status: Chronic (7) Diabetes mellitus Diagnosis: Secondary ICD Codes: E11.9 - Type 2 diabetes mellitus without complications Status: Chronic (8) Nasal swelling Diagnosis: Secondary ICD Codes: R22.0 - Localized swelling, mass and lump, head Status: Resolved Brief History 86 yo female with h/o DM presenting with 2 days of R elbow pain and R arm weakness in the setting of a week of intermittent muscle aches in various parts of her body, intermittent dull abdominal pain, and global weakness. She recently helped her granddaughter clean a screen at their house but recalls no trauma to her arm or any other body part. CBC/BMP: 02/28/17 0727 02/28/17 0727 Significant Findings Laboratory Tests Test 02/28/17 07:27 White Blood Count 20.1 TH/MM3 (4.0-11.0) Platelet Count 633 TH/MM3 (150-450) Neutrophils (%) (Auto) 79.3 % (16.0-70.0) Monocytes (%) (Auto) 8.2 % (0.0-8.0) Neutrophils # (Auto) 16.0 TH/MM3 (1.8-7.7) Monocytes # (Auto) 1.6 TH/MM3 (0-0.9) Blood Urea Nitrogen 5 MG/DL (7-18) Creatinine 0.45 MG/DL (0.50-1.00) Random Glucose 172 MG/DL (74-106) Albumin 2.2 GM/DL (3.4-5.0) Alkaline Phosphatase 139 U/L (45-117) Imaging Last Impressions Breast Ultrasound 02/27/17 1441 Signed Impressions: Service Date/Time: February 15:07 - CONCLUSION: Probably a complicated cyst and 2:00 position without any hypervascularity and followup is suggested with left breast ultrasound and mammogram in 6 months. Ashley Diaz MD Chest X-Ray 02/26/17 0000 Signed Impressions: Service Date/Time: Sunday, February 26, 2017 12:35 - CONCLUSION: 1. Minimal increased interstitial markings suggestive of minimal pulmonary vascular congestion. 2. Mild cardiomegaly. Theo Dewitt MD Sinuses CT 02/25/17 0000 Signed Impressions: Service Date/Time: Saturday, February 25, 2017 18:15 - CONCLUSION: Soft tissue swelling without fracture. Jamison Kumar MD Head CT 02/25/17 0000 Signed Impressions: Service Date/Time: Saturday, February 25, 2017 18:11 - CONCLUSION: 1. Mild cerebral atrophy and chronic ischemic small vessel vasculopathy. Jamison Kumar MD Abdomen/Pelvis CT 02/24/17 1234 Signed Impressions: Service Date/Time: Friday, February 24, 2017 14:36 - CONCLUSION: Cholelithiasis. Ashley Diaz MD PE at Discharge GENERAL: Thin elderly white female sitting up in bed in NAD SKIN: No rashes, ecchymoses or lesions. Cool and dry. CARDIOVASCULAR: NRRR; soft blowing 2/6 murmur heard best at RUSB RESPIRATORY: normal rate and effort, CTAB ABD: Soft, NDNT NEUROLOGICAL: Awake and alert. Uses help of left arm to raise R arm above her head. Biceps/triceps strength 5/5 bilaterally when prompted for effort. MSK: Tender over R biceps muscle. Hospital Course 86 yo female with HTN and DM presenting with weakness and migratory myalgias for ~1-2 weeks. Found to be in paroxysmal AFib with RVR. Started on diltiazem drip and converted to NSR with normal rate. Transitioned to oral diltiazem and continued to be in NSR with normal rate. However, she continued to be globally weak. Neurologic exam revealed normal strength when patient was encouraged to make effort. Due to highly elevated ESR and leukocytosis with clinical history of weakness and myalgias in absence of infectious etiology, the diagnosis of PMR was made and treatment with PO prednisone was initiated. Due to continued weakness PT/OT were consulted and recommended discharge to short-term rehab facility. She is to repeat a CBC and ESR as an outpatient with results to be faxed to her PCP Dr. Tabares. Of note, during work-up for possible malignant or infectious etiology for her leukocytosis it was discovered she had a L breast cyst. Radiology recommended follow up imaging with diagnostic mammo and ultrasound at 6 months. Pt Condition on Discharge: Stable Discharge Disposition: Discharge to SNF Discharge Instructions DIET: Follow Instructions for: As Tolerated, No Restrictions Activities you can perform: Regular-No Restrictions Follow up Referrals: PCP Follow-up - 1 Week with Bekah Tabares MD New Orders: CBC WITH DIFF - 1 Week WESTERGREN SED RATE - 1 Week New Medications: Prednisone (Prednisone) 10 Mg Tab 10 MG PO DAILY, #30 TAB 0 Refills Apixaban (Eliquis) 2.5 Mg Tab 2.5 MG PO BID for 30 Days, #60 TAB Diltiazem CD 24 HR (Cardizem CD 24 HR) 180 Mg Caper 180 MG PO DAILY, #30 CAP Continued Medications: Lisinopril (Lisinopril) 10 Mg Tab 10 MG PO DAILY, #30 TAB 11 Refills Metformin ER (Metformin ER) 500 Mg Kaleb 500 MG PO DAILY for Blood Sugar Management, #31 TAB 11 Refills With evening meal Tramadol (Tramadol) 50 Mg Tab 50 MG PO Q6H PRN for PAIN, #20 TAB 0 Refills Timoteo Singletary MD Mar 02, 2017 18:12
== END 2017-02-28 18:44 | DRG 546 ==
LOC: NEPC 11:05 → NEDA 17:07 → HCPC 19:35 → N04A 02-26 21:28
PROVIDERS: ADMIT Family Medicine; ATTEND Family Medicine
DX: M35.3 Polymyalgia rheumatica (principal); N39.0 Urinary tract infection, site not specified; I48.0 Paroxysmal atrial fibrillation; E87.1 Hypo-osmolality and hyponatremia; E11.9 Type 2 diabetes mellitus without complications; I44.7 Left bundle-branch block, unspecified; I10 Essential (primary) hypertension; Z79.84 Long term (current) use of oral hypoglycemic drugs; M25.529 Pain in unspecified elbow; K80.20 Calculus of gallbladder without cholecystitis without obstruction; R05 Cough; R04.0 Epistaxis; N60.02 Solitary cyst of left breast; M81.0 Age-related osteoporosis without current pathological fracture; R32 Unspecified urinary incontinence; Z66 Do not resuscitate; Z85.828 Personal history of other malignant neoplasm of skin; M16.10 Unilateral primary osteoarthritis, unspecified hip; E55.9 Vitamin D deficiency, unspecified; E04.1 Nontoxic single thyroid nodule; Z80.3 Family history of malignant neoplasm of breast; Z83.3 Family history of diabetes mellitus; Z82.49 Family history of ischemic heart disease and other diseases of the circulatory system
CPT/HCPCS: 70450; 70486; 71045; 71046; 74177; 76642; 80048; 80053; 80061; 81001; 82550; 82948; 83735; 84100; 84443; 84484; 85025; 85060; 85652; 86038; 86140; 86200; 86430; 87086; 87804; 93005; 93306; 94150; 96361; 96365; 96368; 96375; J0696; J1650; J1815; J7040; J7512; Q9967

== ENCOUNTER 2017-03-03 21:30 | Inpatient (IN) | payer MEDICARE, BC ==
[~2017-03-03] VITALS: Ht 152.4 cm; Wt 62.9 kg
[~2017-03-03 21:30] MED LIST changes: +APIX2.5T PO; -ASPI1TAB57 PO; +CARD180C5 PO; -FOSA70TA PO; -GLUCOMETER STRIPS; -Glucometer; -MELA1TAB18 PO; -MULTTAB67 PO; +PRED10 PO; -VITA500012 PO
[2017-03-03 21:45] VITALS: BP 175/82; PULSE 95; RESP 18; TEMP 99.8; O2SAT 99
--- NOTE | 2017-03-03 21:53 | PD ---
HPI Chief Complaint: AMS/fever Time Seen by Provider: 21:36 Travel History International Travel<30 days: No Contact w/Intl Traveler<30days: No History of Present Illness HPI 86-year-old elderly female presents to the emergency department via EMS from nursing facility for evaluation of altered mental status fever. According to EMS, she was last seen normal 2 days ago. Patient was recently here for atrial fibrillation with RVR. She has history of hypertension, diabetes. She also was complaining of migratory myalgias for about 1-2 weeks. Diagnosis of PMR was made and she was initiated on by mouth prednisone. Patient is pleasantly confused. She knows her name, she said [facility] [place] [facility] [address]. However, she is not oriented to the month or the year. Patient does report frontal headache that she states she has had for several months. She denies any chest pain or shortness of breath. She does have a cough noted on my exam. No abdominal pain. No nausea, vomiting, diarrhea. According to nursing facility, she has had a fever up to 101. No exacerbating or alleviating factors. Moderate severity. PFSH Past Medical History Cancer: Yes Cardiovascular Problems: Yes Diabetes: Yes Genitourinary: No Hypertension: Yes Musculoskeletal: No Reproductive: No Respiratory: No Past Surgical History Other Surgery: Yes (CANCER OF THE NOSE ) Social History Alcohol Use: No Tobacco Use: No Substance Use: No Allergies-Medications (Allergen,Severity, Reaction): Coded Allergies: No Known Allergies (Unverified Allergy, Unknown, 02/24/17) Reported Meds & Prescriptions Reported Meds & Active Scripts Active Prednisone 10 Mg Tab 10 Mg PO DAILY Cardizem CD 24 HR (Diltiazem CD 24 HR) 180 Mg Caper 180 Mg PO DAILY Eliquis (Apixaban) 2.5 Mg Tab 2.5 Mg PO BID 30 Days Lisinopril 10 Mg Tab 10 Mg PO DAILY Tramadol (Tramadol HCl) 50 Mg Tab 50 Mg PO Q6H PRN Metformin ER (Metformin HCl) 500 Mg Kaleb 500 Mg PO DAILY With evening meal Review of Systems Except as stated in HPI: all other systems reviewed are Neg Physical Exam Narrative GENERAL: Well-nourished, well-developed elderly female patient, afebrile. SKIN: Focused skin assessment warm/dry. HEAD: Normocephalic. Atraumatic. EYES: No scleral icterus. No injection or drainage. NECK: Supple, trachea midline. No JVD or lymphadenopathy. CARDIOVASCULAR: Regular rate and rhythm without murmurs, gallops, or rubs. RESPIRATORY: Breath sounds equal bilaterally. No accessory muscle use. Lungs sounds clear to auscultation. Dry cough noted. GASTROINTESTINAL: Abdomen soft, non-tender, nondistended. MUSCULOSKELETAL: No cyanosis, or edema. Patient moves all extremities to command and spontaneously. Bilateral upper extremity strength 5/5, bilateral lower extremity strength 4/5. BACK: Nontender without obvious deformity. No CVA tenderness. Data Data Last Documented VS Vital Signs Date Time Temp Pulse Resp B/P (MAP) Pulse Ox O2 Delivery O2 Flow Rate FiO2 03/03/17 21:45 99.8 95 18 175/82 (113) 99 Room Air Orders Orders Sepsis Workup Initiated (03/03/17 ) Electrocardiogram (03/03/17 21:44) Complete Blood Count With Diff (03/03/17 21:44) Comprehensive Metabolic Panel (03/03/17 21:44) Prothrombin Time / Inr (Pt) (03/03/17 21:44) Act Partial Throm Time (Ptt) (03/03/17 21:44) Lactic Acid Sepsis Protocol (03/03/17 21:44) Magnesium (Mg) (03/03/17 21:44) Urinalysis - C+S If Indicated (03/03/17 21:44) Influenzae A/B Antigen (03/03/17 21:44) Blood Culture (03/03/17 21:44) Chest, Single Ap (03/03/17 21:44) Blood Glucose (03/03/17 21:44) Ecg Monitoring (03/03/17 21:44) Iv Access Insert/Monitor (03/03/17 21:44) Cath For Specimen (03/03/17 21:44) Oximetry (03/03/17 21:44) Oxygen Administration (03/03/17 21:44) Ct Brain W/O Iv Contrast(Rout) (03/03/17 ) Ckmb (Isoenzyme) Profile (03/03/17 21:45) Troponin I (03/03/17 21:45) Labs Laboratory Tests Test 03/03/17 22:15 MDM Medical Decision Making Medical Screen Exam Complete: Yes Emergency Medical Condition: Yes Medical Record Reviewed: Yes Interpretation(s) chest x-ray - CONCLUSION: Normal examination. Differential Diagnosis Pneumonia versus UTI versus influenza versus electrolyte abnormality versus intracranial abnormality Narrative Course 86-year-old elderly female presents to the emergency department for AMS, fever from nursing facility. EKG, CBC, CMP, lactic acid, magnesium, CK, troponin, PTT , PT/INR, UA, blood cultures 2, and influenza swab are ordered and pending. Chest x-ray is ordered and pending. EKG shows sinus rhythm, left bundle branch block, heart rate 98. Chest x-ray is normal. Labs, flu, UA are pending. Dr. Perrin will resume care and disposition of patient. Dorene Callahan Mar 03, 2017 21:53
--- NOTE | 2017-03-03 22:03 | RADRPT ---
EXAM DATE/TIME: 03/03/2017 21:56 [facility] COMPARISON: CHEST SINGLE AP, February 25, 2017, 13:20. INDICATIONS : Fever. MEDICAL HISTORY : Hypertension. Carcinoma, basal cell. Abdominal pain. Weakness. Incontinence. Diabetes. SURGICAL HISTORY : Skin cancer removed from nose. ENCOUNTER: Initial ACUITY: 1 day PAIN SCORE: 0/10 LOCATION: Bilateral chest FINDINGS: A single view of the chest demonstrates the lungs to be symmetrically aerated without evidence of mas s, infiltrate or effusion. The cardiomediastinal contours are unremarkable. Osseous structures are intact. CONCLUSION: Normal examination. James Wolff MD on March 03, 2017 at 21:59 Board Certified Radiologist. This report was verified electronically.
[2017-03-03] MEDS ORDERED: PRED5TAB PO (22:49)
[2017-03-03 23:15] LABS: ALBUMIN 2.3 GM/DL (3.4-5.0); ALKALINE PHOSPHATASE 146 U/L (45-117); ALT (GPT) 73 U/L (10-53); AST (GOT) 68 U/L (15-37); BICARBONATE 27.9 MEQ/L (21.0-32.0); BLOOD UREA NITROGEN 5 MG/DL (7-18); CALCIUM 9.4 MG/DL (8.5-10.1); CHLORIDE 91 MEQ/L (98-107); CREATININE 0.54 MG/DL (0.50-1.00); GLOMERULAR FILTRATION RATE 107 ML/MIN (>89); GLUCOSE,RANDOM 189 MG/DL (74-106); SODIUM (NA) 128 MEQ/L (136-145); TOTAL BILIRUBIN ADULT 0.4 MG/DL (0.2-1.0); TOTAL PROTEIN 8.1 GM/DL (6.4-8.2)
[2017-03-03 23:17] LABS: INTERNATIONAL NORMALIZED RATIO 1.1 RATIO; PROTHROMBIN TIME - PATIENT 11.4 SEC (9.8-11.6)
[2017-03-03 23:17] LABS: AUTOMATED NEUTROPHIL # 23.2 TH/MM3 (1.8-7.7); BASOPHIL # 0.1 TH/MM3 (0-0.2); BASOPHIL % 0.4 % (0.0-2.0); EOSINOPHIL # 0.1 TH/MM3 (0-0.4); EOSINOPHIL % 0.3 % (0.0-4.0); HEMOGLOBIN 12.3 GM/DL (11.6-15.3); LYMPH % 7.5 % (9.0-44.0); LYMPHOCYTE # 2.1 TH/MM3 (1.0-4.8); MEAN CELL VOLUME 88.5 FL (80.0-100.0); MEAN CORPUSCULAR HEMOGLOBIN 31.1 PG (27.0-34.0); MEAN CORPUSCULAR HGB CONC 35.1 % (32.0-36.0); MEAN PLATELET VOLUME 7.9 FL (7.0-11.0); MONO % 8.1 % (0.0-8.0); MONOCYTE # 2.2 TH/MM3 (0-0.9); NEUT % 83.7 % (16.0-70.0); PLATELET COUNT 738 TH/MM3 (150-450); RED BLOOD COUNT 3.96 MIL/MM3 (4.00-5.30); RED CELL DISTRIBUTION WIDTH 12.8 % (11.6-17.2); WHITE BLOOD COUNT 27.6 TH/MM3 (4.0-11.0)
[2017-03-03 23:22] VITALS: BP 152/70; PULSE 97; RESP 16; O2SAT 98
--- NOTE | 2017-03-03 23:22 | RADRPT ---
EXAM DATE/TIME: 03/03/2017 22:39 [facility] COMPARISON: CT BRAIN W/O CONTRAST, February 25, 2017, 18:11. INDICATIONS : Altered mental status. RADIATION DOSE: 56.35 CTDIvol (mGy) MEDICAL HISTORY : Cardiovascular disease. Hypertension. Diabetes mellitus type 2. SURGICAL HISTORY : None. ENCOUNTER: Initial ACUITY: 1 day PAIN SCALE: 0/10 LOCATION: cranial TECHNIQUE: Multiple contiguous axial images were obtained of the head. Using automated exposure control and adj ustment of the mA and/or kV according to patient size, radiation dose was kept as low as reasonably a chievable to obtain optimal diagnostic quality images. DICOM format image data is available electro nically for review and comparison. FINDINGS: CEREBRUM: The ventricles are normal for age. No evidence of midline shift, mass lesion, hemorrhage or acute in farction. No extra-axial fluid collections are seen. There is periventricular hypodensity compatible with chronic ischemic change slightly more than expected for patient this age. POSTERIOR FOSSA: The cerebellum and brainstem are intact. The 4th ventricle is midline. The cerebellopontine angle i s unremarkable. EXTRACRANIAL: The visualized portion of the orbits is intact. SKULL: The calvaria is intact. No evidence of skull fracture. CONCLUSION: 1. No evidence of acute intracranial pathology. No masses are identified. Ralph Gould MD on March 03, 2017 at 23:19 Board Certified Radiologist. This report was verified electronically.
[2017-03-03 23:35] LABS: BILIRUBIN, URINE NEG (NEG); BLOOD, URINE NEG (NEG); GLUCOSE,URINE TRACE mg/dL (NEG); KETONE, URINE NEG (NEG); MUCUS URINE FEW /lpf (OCC); NITRITE,URINE NEG (NEG); RENAL EPITHELIAL CELLS <1 /hpf; SQUAMOUS EPITHELIAL CELL URINE <1 /hpf (0-5); URINE COLOR YELLOW (YELLW/STRAW); URINE LEUKOCYTE ESTERASE NEG (NEG)
[2017-03-03 23:56] LABS: BANDS 1 % (0-6); LYMPHOCYTES 7 % (9-44); METAMYELOCYTES 3 % (0-1); MONOCYTES 2 % (0-8); NEUTROPHIL # MANUAL DIFF 25.1 TH/MM3 (1.8-7.7); POLYS (SEG NEUTROPHILS) 87 % (16-70)
[2017-03-04] VITALS (10 sets, daily range): BP systolic 143–167; BP diastolic 63–72; PULSE 80–94; RESP 14–20; TEMP 98.4–102; O2SAT 92–99
[2017-03-04] MEDS ORDERED: VANCOMYCIN INJ 1,000 MG in SODIUM CHLOR 0.9% 250 ML INJ 250 ML IV ONE (00:15)
[2017-03-04] MEDS ORDERED: PIPERACIL-TAZO 4.5 GM PREMIX 100 ML IV ONE (00:15)
--- NOTE | 2017-03-04 01:22 | PD ---
Data Data Last Documented VS Vital Signs Date Time Temp Pulse Resp B/P (MAP) Pulse Ox O2 Delivery O2 Flow Rate FiO2 03/04/17 01:04 100.2 94 14 167/72 (103) 95 Room Air Orders Orders Sepsis Workup Initiated (03/03/17 ) Electrocardiogram (03/03/17 21:44) Complete Blood Count With Diff (03/03/17 21:44) Comprehensive Metabolic Panel (03/03/17 21:44) Prothrombin Time / Inr (Pt) (03/03/17 21:44) Act Partial Throm Time (Ptt) (03/03/17 21:44) Lactic Acid Sepsis Protocol (03/03/17 21:44) Magnesium (Mg) (03/03/17 21:44) Urinalysis - C+S If Indicated (03/03/17 21:44) Influenzae A/B Antigen (03/03/17 21:44) Blood Culture (03/03/17 21:44) Chest, Single Ap (03/03/17 21:44) Blood Glucose (03/03/17 21:44) Ecg Monitoring (03/03/17 21:44) Iv Access Insert/Monitor (03/03/17 21:44) Cath For Specimen (03/03/17 21:44) Oximetry (03/03/17 21:44) Oxygen Administration (03/03/17 21:44) Ct Brain W/O Iv Contrast(Rout) (03/03/17 ) Ckmb (Isoenzyme) Profile (03/03/17 21:45) Troponin I (03/03/17 21:45) Cath For Specimen (03/03/17 23:22) Vancomycin Inj (Vancomycin Inj) (03/04/17 00:15) Piperacil-Tazo 4.5 Gm Premix (Zosyn 4.5 (03/04/17 00:15) Admit Order (Ed Use Only) (03/04/17 ) Labs Laboratory Tests Test 03/03/17 22:15 03/03/17 22:21 03/03/17 23:20 Prothrombin Time 11.4 SEC Prothromb Time International Ratio 1.1 RATIO Activated Partial Thromboplast Time 47.8 SEC Blood Urea Nitrogen 5 MG/DL Creatinine 0.54 MG/DL Random Glucose 189 MG/DL Total Protein 8.1 GM/DL Albumin 2.3 GM/DL Calcium Level 9.4 MG/DL Magnesium Level 2.0 MG/DL Alkaline Phosphatase 146 U/L Aspartate Amino Transf (AST/SGOT) 68 U/L Alanine Aminotransferase (ALT/SGPT) 73 U/L Total Bilirubin 0.4 MG/DL Sodium Level 128 MEQ/L Potassium Level 4.0 MEQ/L Chloride Level 91 MEQ/L Carbon Dioxide Level 27.9 MEQ/L Anion Gap 9 MEQ/L Estimat Glomerular Filtration Rate 107 ML/MIN Lactic Acid Level 1.1 mmol/L Total Creatine Kinase 55 U/L Troponin I LESS THAN 0.02 NG/ML White Blood Count 27.6 TH/MM3 Red Blood Count 3.96 MIL/MM3 Hemoglobin 12.3 GM/DL Hematocrit 35.0 % Mean Corpuscular Volume 88.5 FL Mean Corpuscular Hemoglobin 31.1 PG Mean Corpuscular Hemoglobin Concent 35.1 % Red Cell Distribution Width 12.8 % Platelet Count 738 TH/MM3 Mean Platelet Volume 7.9 FL Neutrophils (%) (Auto) 83.7 % Lymphocytes (%) (Auto) 7.5 % Monocytes (%) (Auto) 8.1 % Eosinophils (%) (Auto) 0.3 % Basophils (%) (Auto) 0.4 % Neutrophils # (Auto) 23.2 TH/MM3 Lymphocytes # (Auto) 2.1 TH/MM3 Monocytes # (Auto) 2.2 TH/MM3 Eosinophils # (Auto) 0.1 TH/MM3 Basophils # (Auto) 0.1 TH/MM3 CBC Comment AUTO DIFF Differential Total Cells Counted 100 Neutrophils % (Manual) 87 % Band Neutrophils % 1 % Lymphocytes % 7 % Monocytes % 2 % Neutrophils # (Manual) 25.1 TH/MM3 Metamyelocytes 3 % Differential Comment FINAL DIFF MANUAL Platelet Estimate HIGH Platelet Morphology Comment NORMAL Red Cell Morphology Comment NORMAL Urine Color YELLOW Urine Turbidity CLEAR Urine pH 7.0 Urine Specific [place] 1.006 Urine Protein TRACE mg/dL Urine Glucose (UA) TRACE mg/dL Urine Ketones NEG mg/dL Urine Occult Blood NEG Urine Nitrite NEG Urine Bilirubin NEG Urine Urobilinogen LESS THAN 2.0 MG/DL Urine Leukocyte Esterase NEG Urine RBC 1 /hpf Urine WBC 2 /hpf Urine Squamous Epithelial Cells <1 /hpf Urine Renal Epithelial Cells <1 /hpf Urine Mucus FEW /lpf Urine Yeast (Budding) RARE Microscopic Urinalysis Comment CATH-CULT NOT IND MDM Supervised Visit with ALEXANDRA: Yes Narrative Course Patient care assumed from Dorene Londondomingo FONTANA at the end of her shift at 2300. This is an 86-year-old female presented to the emergency Department with fever and altered mental status for the past 2 days. On my examination the patient has no nuchal rigidity, no rashes no abdominal pain no chest pain and no shortness of breath. Chest x-ray negative, UA negative. Underwent CT of the head showing no abnormality. The patient does have an elevated white blood cell count 27,000 with a left shift. Patient was started on vancomycin and Zosyn and blood cultures were drawn. No true source of her fever yet identified , MAXIMUM TEMPERATURE in the emergency department 102 Fahrenheit. Her neurologic exam is as follows: Cranial nerves II through XII are grossly intact and nonfocal, 5 out of 5 strength in all 4 extremities. The patient is oriented to person and place, she cannot tell me the date and when asked begins to ramble and avoid the question. She seems to be focused on the fact that she has a sore throat and everyone in the ICU had a sore throat as well. Patient was discussed with Dr. Singletary who is on-call for the residents who will readmit the patient. Lumbar puncture was briefly considered in however the patient has no nuchal rigidity and I think the risks outweigh the benefits currently. This procedure maybe considered in the future however. Diagnosis Primary Impression: SIRS (systemic inflammatory response syndrome) Admitting Information Admitting Physician Requests: Observation Condition: Stable Theo Perrin MD Mar 04, 2017 01:22
[2017-03-04 01:55] LABS: TROPONIN I LESS THAN 0.02 NG/ML (0.02-0.05)
--- NOTE | 2017-03-04 02:06 | HHI.HP ---
HPI Service Family Medicine Primary Care Physician Bekah Tabares MD Admission Diagnosis SIRS, Altered mental status. Diagnoses: International Travel<30 Days: No Contact w/Intl Traveler<30days: No Known Affected Area: No History of Present Illness 86-year-old female with past medical history of cholelithiasis, diabetes, hypertension, newly diagnosed atrial fibrillation and suspected polymyalgia rheumatica presenting from short-term rehabilitation facility due to fever and confusion. She was discharged from [facility] a few days ago after being diagnosed with AFib and being started on treatment for global weakness suspected to be due to PMR. Over the last couple days at rehabilitation, patient states that her sore throat and cough, which were mild on hospital discharge, have now worsened. She also developed a fever. Additionally, rehabilitation facility staff reported to the ED physician that she had been confused today. Patient denies focal weakness, chest pain, shortness of breath, abdominal pain. (Timoteo Singletary MD) Review of Systems ROS Limitations: Altered Mental Status, Poor Historian Constitutional: COMPLAINS OF: Fatigue, Fever, DENIES: Chills Eyes: DENIES: Blurred vision Ears, nose, mouth, throat: COMPLAINS OF: Throat pain, DENIES: Nasal discharge, Ear Pain, Running Nose, Sinus Pain Respiratory: COMPLAINS OF: Cough, DENIES: Wheezing, Shortness of breath Cardiovascular: DENIES: Chest pain, Palpitations Gastrointestinal: COMPLAINS OF: Constipation, Difficulty Swallowing (painful to swallow), DENIES: Abdominal pain, Black stools, Bloody stools, Diarrhea, Nausea, Vomiting Genitourinary: DENIES: Urinary frequency, Dysuria Integumentary: DENIES: Rash Hematologic/lymphatic: DENIES: Bruising Neurologic: DENIES: Headache, Localized weakness Psychiatric: COMPLAINS OF: Confusion (Timoteo Singletary MD) Past Family Social History Past Medical History AFib Polymyalgia rheumatica? DM II HTN Vitamin D deficiency Vitamin B12 deficiency? chronic foot pain knee and hip arthritis osteoporosis esophageal stricture nonobstructive cholelithiasis R thyroid nodule, 08/2015 Past Surgical History L cornea transplant, 2013 Cataract surgery, bilaterally L breast biopsy, 1998 esophageal dilation, 2009 L wrist fracture, 2012 Reported Medications Reported Meds & Active Scripts Active Cardizem CD 24 HR (Diltiazem CD 24 HR) 180 Mg Caper 180 Mg PO DAILY Eliquis (Apixaban) 2.5 Mg Tab 2.5 Mg PO BID 30 Days Lisinopril 10 Mg Tab 10 Mg PO DAILY Tramadol (Tramadol HCl) 50 Mg Tab 50 Mg PO Q6H PRN Metformin ER (Metformin HCl) 500 Mg Kaleb 500 Mg PO DAILY With evening meal Reported Prednisone 5 Mg Tab 5 Mg PO DAILY (Timoteo Singletary MD) Allergies: Coded Allergies: No Known Allergies (Unverified Allergy, Unknown, 02/24/17) Family History mother - DM II brother - DM II, ESRD from DM II sister - DM II sister - Breast CA, 86yo niece - DM II with retinopathy Suicide, CAD, hypothyroidism Social History x 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 From [place]. Never smoker. No alcohol, no illicits. No regular exercise. 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 (Timoteo Singletary MD) Physical Exam Vital Signs Vital Signs Date Time Temp Pulse Resp B/P (MAP) Pulse Ox O2 Delivery O2 Flow Rate FiO2 03/04/17 01:28 88 14 143/63 (89) 95 Room Air 03/04/17 01:04 100.2 94 14 167/72 (103) 95 Room Air 03/04/17 00:15 102.0 03/03/17 23:22 97 16 152/70 (97) 98 Room Air 03/03/17 21:45 99.8 95 18 175/82 (113) 99 Room Air Physical Exam GENERAL: Thin, frail elderly white female lying flat in bed, comfortable, NAD. Appears tired. SKIN: No rashes, ecchymoses or lesions. Very warm to touch. No wounds, no evidence of sacral decubitus ulcer. HEAD: NC/AT EYES: PERRL. EOMI. No conjunctival injection or drainage. ENT: MMM, OP with mild erythema; uvula midline, no tonsillar swelling or exudate. NECK: Supple, no lymphadenopathy. No JVD. CARDIOVASCULAR: NRRR. Normal S1/S2. Harsh blowing RUBI at RUSB. Does not radiate to carotids. RESPIRATORY: CTAB. No crackles or wheezes. GASTROINTESTINAL: Abdomen soft, non-distended, mildly tender to palpation at LLQ . No hepato-splenomegaly or palpable masses. MUSCULOSKELETAL: Extremities without clubbing, cyanosis, or edema. NEUROLOGICAL: Awake and alert. Oriented to person but not place or time (knows she's around doctors but not that she's hospitalized. Thinks it's December). Requires encouragement and redirection but does follow directions. No facial droop. Cranial nerves II through XII grossly intact. Strength 4/5 throughout all muscle groups with effort except RLE 3/5 (hip flexion, leg extension/flexion ). Sensation intact to light touch throughout. Normal speech. Laboratory Laboratory Tests Test 03/03/17 22:15 03/03/17 22:21 03/03/17 23:20 Prothrombin Time 11.4 Prothromb Time International Ratio 1.1 Activated Partial Thromboplast Time 47.8 Blood Urea Nitrogen 5 Creatinine 0.54 Random Glucose 189 Total Protein 8.1 Albumin 2.3 Calcium Level 9.4 Magnesium Level 2.0 Alkaline Phosphatase 146 Aspartate Amino Transf (AST/SGOT) 68 Alanine Aminotransferase (ALT/SGPT) 73 Total Bilirubin 0.4 Sodium Level 128 Potassium Level 4.0 Chloride Level 91 Carbon Dioxide Level 27.9 Anion Gap 9 Estimat Glomerular Filtration Rate 107 Lactic Acid Level 1.1 Total Creatine Kinase 55 Troponin I LESS THAN 0.02 White Blood Count 27.6 Red Blood Count 3.96 Hemoglobin 12.3 Hematocrit 35.0 Mean Corpuscular Volume 88.5 Mean Corpuscular Hemoglobin 31.1 Mean Corpuscular Hemoglobin Concent 35.1 Red Cell Distribution Width 12.8 Platelet Count 738 Mean Platelet Volume 7.9 Neutrophils (%) (Auto) 83.7 Lymphocytes (%) (Auto) 7.5 Monocytes (%) (Auto) 8.1 Eosinophils (%) (Auto) 0.3 Basophils (%) (Auto) 0.4 Neutrophils # (Auto) 23.2 Lymphocytes # (Auto) 2.1 Monocytes # (Auto) 2.2 Eosinophils # (Auto) 0.1 Basophils # (Auto) 0.1 CBC Comment AUTO DIFF Differential Total Cells Counted 100 Neutrophils % (Manual) 87 Band Neutrophils % 1 Lymphocytes % 7 Monocytes % 2 Neutrophils # (Manual) 25.1 Metamyelocytes 3 Differential Comment FINAL DIFF MANUAL Platelet Estimate HIGH Platelet Morphology Comment NORMAL Red Cell Morphology Comment NORMAL Urine Color YELLOW Urine Turbidity CLEAR Urine pH 7.0 Urine Specific [place] 1.006 Urine Protein TRACE Urine Glucose (UA) TRACE Urine Ketones NEG Urine Occult Blood NEG Urine Nitrite NEG Urine Bilirubin NEG Urine Urobilinogen LESS THAN 2.0 Urine Leukocyte Esterase NEG Urine RBC 1 Urine WBC 2 Urine Squamous Epithelial Cells <1 Urine Renal Epithelial Cells <1 Urine Mucus FEW Urine Yeast (Budding) RARE Microscopic Urinalysis Comment CATH-CULT NOT IND Date/Time Source Procedure Growth Status 03/03/17 22:15 Blood Peripheral Aerobic Blood Culture Pending Received 03/03/17 22:15 Blood Peripheral Anaerobic Blood Culture Pending Received 03/03/17 22:30 Nasal Aspirate Influenza Types A,B Antigen (JAVIER) - Final NEGATIVE FOR FLU A AND B ANTIGEN.... Complete (Timoteo Singletary MD) Result Diagram: 03/03/17 2221 03/03/17 2215 Imaging Last Impressions Chest X-Ray 03/03/174 Signed Impressions: Service Date/Time: Friday, March 03, 2017 21:56 - CONCLUSION: Normal examination. James Wolff MD Head CT 03/03/17 0000 Signed Impressions: Service Date/Time: Friday, March 03, 2017 22:39 - CONCLUSION: 1. No evidence of acute intracranial pathology. No masses are identified. Ralph Gould MD (Timoteo Singletary MD) Septic Shock Reassessment Septic shock perfusion: reassessment completed (Timoteo Singletary MD) Caprini VTE Risk Assessment Caprini VTE Risk Assessment: Mod/High Risk (score >= 2) (Timoteo Singletary MD) Assessment and Plan Assessment and Plan 86 yo female with PMH of DM, HTN, AFib, suspected PMR now presenting with: (Timoteo Singletary MD) Attending Attestation Patient seen, examined, and discussed with Dr. Scherer. I agree with assessment and management as documented and discussed with me. The patient has been seen and examined. The chart and all resident notes have been reviewed. I agree that inpatient care is appropriate and that a two midnight stay is expected for the reasons documented in the resident history and physical. I have discussed this with the resident and certify the resident s order for inpatient admission. Pt remains confused this morning. Tmax 102, but now afebrile. She complains of sore throat, but history difficult to obtain. ROS difficult to obtain due to confusion. On exam this morning at 0915, Neck supple, no meningeal signs. RRR, S1 S2. 1/6 systolic murmur at LUSB consistent with aortic sclerosis and similar to prior exam. CTAB, although initial coarse sounds at right base, which cleared with cough. Questionable R CVAT, noted initially, but diminished on repeat exam. No splinter hemorrhages. Continue IV antibiotics. Await blood cultures, respiratory panel. *Repeat CXR, PA and lateral to evaluate further for pneumonia. *Check TSH and ammonia as patient with level of confusion. *Check CT abd/pelvis to evaluate unusual abdominal/CVA exam. Anticipate patient will remain in hospital for 2-3 days until cultures resulted and clinical improvement. (Bekah Tabares MD) Problem List: (1) SIRS (systemic inflammatory response syndrome) ICD Codes: R65.10 - Systemic inflammatory response syndrome (SIRS) of non- infectious origin without acute organ dysfunction Status: Acute Plan: Significant leukocytosis but not a new problem (increased from previous level of 20 on discharge 5 days ago) Left shift (83% PMNs) + thrombocytosis in the 700s Lactic acid normal Mild transaminitis, new No source of infection identified on clinical exam UA negative for UTI CXR without focal process History suggests viral URI: Cough, high fever Flu antigen testing negative Peripheral smear on 02/28/17: "Review of the peripheral blood reveals increased numbers of white blood cells with an absolute increase of monocytes. Some of the monocytes demonstrate cytoplasmic vacuoles and there are rare immature forms present. Although monocytosis can be seen as a reactive process, if this finding persists, a primary bone marrow disorder should be excluded." Rheumatologic work-up at prior visit including RF, SUSANNE, and CCP negative - S/p vancomycin and zosyn x1 in ER - Obtain respiratory panel - Oxygen if needed, currently stable ORA - Repeat abdominal exam in morning; was benign on admission except mild LLQ tenderness. If worsened or persistent can consider abdominal CT. At this point intraabdominal pathology unlikely - Trend CBC, CMP - Continue vancomycin and Zosyn for now to cover possible sepsis with unknown source. If other reason for leukocytosis identified can discontinue. - Consider repeating peripheral smear review tomorrow given degree of thrombocytosis and leukocytosis (2) Confusion with non-focal neuro exam ICD Codes: R41.0 - Disorientation, unspecified Status: Acute Plan: Confusion with normal level of consciousness, not fluctuating (i.e. not consistent with delirium) Neuro exam non-focal except required a lot of prompting to move RLE, slightly weak CT head with no intracranial bleed or ischemic changes Troponin negative EKG with NSR - Continue Eliquis for paroxysmal AFib - Hyponatremia, mild (128), acute --> give IV fluids at maintenance rate, trend sodium level daily. Rapid correction of acute-onset hyponatremia unlikely to cause CPM. - Repeat neuro exam in morning - Manage other problems as noted; fever alone may cause confusion (3) Heart murmur ICD Codes: R01.1 - Cardiac murmur, unspecified Plan: Harsh sounding RUBI, sounds somewhat more prominent than previous hospitalization Echo 02/25/17 with normal EF, calcified aortic leaflets, no hemodynamically significant valvular disease - Monitor clinical course. Can consider repeat Echo based on symptoms, additional work-up and treatment noted above (4) Atrial fibrillation ICD Codes: I48.91 - Unspecified atrial fibrillation Status: Chronic Plan: Rhythm sinus with normal rate at present - Continue home diltiazem ER - Telemetry for 24 hours (medical illness with cardiac history); can discontinue if no events - Continue Eliquis (5) Polymyalgia rheumatica ICD Codes: M35.3 - Polymyalgia rheumatica Status: Chronic Plan: Suspected PMR diagnosed last visit, on prednisone < 1 week - Hold prednisone for now given SIRS - PT/OT (6) Essential hypertension ICD Codes: I10 - Essential (primary) hypertension Status: Chronic Plan: BP mildly elevated on admission - Continue home lisinopril - Continue to monitor (7) Diabetes mellitus ICD Codes: E11.9 - Type 2 diabetes mellitus without complications Status: Chronic Plan: Glucose on admission was 189 - Hold home metformin - Very low dose SSI (Novolog) - Diet diabetic - Accu-chek AC/HS - Goal BSG 140-180 (8) FEN/PPX Plan: Fluids: NS @ 100 cc/hr Electrolytes: Monitor and replace PRN Nutrition: Diet Heart Healthy w/ 2 gm sodium restrict and 2000 ADA cons carb level Pain: Tylenol PRN DVT: On Eliquis CODE STATUS: Full code dw Dr. Perrin (Timoteo Singletary MD) Problem Qualifiers (1) Atrial fibrillation: Qualified Codes: I48.0 - Paroxysmal atrial fibrillation Timoteo Singletary MD Mar 04, 2017 02:06 Bekah Tabares MD Mar 04, 2017 10:06
[2017-03-04] MEDS ORDERED: GLUCAGON 1 MG/ML VIAL OTHER PRN (02:15)
[2017-03-04] MEDS ORDERED: DEXTROSE 50% IN WATER 50 ML VIAL(D50) IV PUSH PRN (02:15)
[2017-03-04] MEDS ORDERED: NALOXONE HCL 0.4 MG/ML AMP IV PUSH PRN (02:15)
[2017-03-04] MEDS ORDERED: LACTULOSE SYRUP 20 GM/30 ML CUP PO PRN (02:15)
[2017-03-04] MEDS ORDERED: ACETAMINOPHEN 325 MG TAB PO PRN (02:15)
[2017-03-04] MEDS ORDERED: MAGNESIUM HYDROXIDE SUSP 30 ML CUP PO PRN (02:15)
[2017-03-04] MEDS ORDERED: SENNOSIDES 8.6 MG TAB PO PRN (02:15)
[2017-03-04] MEDS ORDERED: SODIUM CHLORIDE 0.9% FLUSH 10 ML FLUSH IV FLUSH PRN (02:15)
[2017-03-04] MEDS ORDERED: BISACODYL 10 MG SUPP RECTAL PRN (02:15)
[2017-03-04] MEDS: SODIUM CHLOR 0.9% 1000 ML INJ 1,000 ML IV SCH ×2 (02:46→14:00)
[2017-03-04] MEDS ORDERED: Vancomycin Consult Pharmacy 1 EA OTHER SCH (03:15)
[2017-03-04 05:07] LABS: BASOPHIL # 0.2 TH/MM3 (0-0.2); BASOPHIL % 0.6 % (0.0-2.0); EOSINOPHIL # 0.1 TH/MM3 (0-0.4); EOSINOPHIL % 0.3 % (0.0-4.0); HEMATOCRIT 35.6 % (35.0-46.0); HEMOGLOBIN 12.2 GM/DL (11.6-15.3); LYMPH % 6.9 % (9.0-44.0); LYMPHOCYTE # 1.7 TH/MM3 (1.0-4.8); MEAN CELL VOLUME 89.8 FL (80.0-100.0); MEAN CORPUSCULAR HEMOGLOBIN 30.7 PG (27.0-34.0); MEAN CORPUSCULAR HGB CONC 34.2 % (32.0-36.0); MEAN PLATELET VOLUME 7.5 FL (7.0-11.0); MONO % 7.1 % (0.0-8.0); MONOCYTE # 1.7 TH/MM3 (0-0.9); NEUT % 85.1 % (16.0-70.0); PLATELET COUNT 639 TH/MM3 (150-450); RED BLOOD COUNT 3.96 MIL/MM3 (4.00-5.30); RED CELL DISTRIBUTION WIDTH 12.5 % (11.6-17.2); WHITE BLOOD COUNT 24.7 TH/MM3 (4.0-11.0)
[2017-03-04 05:33] LABS: ALT (GPT) 56 U/L (10-53); AST (GOT) 37 U/L (15-37); BICARBONATE 25.7 MEQ/L (21.0-32.0); BLOOD UREA NITROGEN 5 MG/DL (7-18); CALCIUM 9.3 MG/DL (8.5-10.1); CHLORIDE 97 MEQ/L (98-107); CREATININE 0.49 MG/DL (0.50-1.00); GLOMERULAR FILTRATION RATE 120 ML/MIN (>89); GLUCOSE,RANDOM 196 MG/DL (74-106); SODIUM (NA) 131 MEQ/L (136-145)
[2017-03-04 05:35] LABS: ALKALINE PHOSPHATASE 134 U/L (45-117); TOTAL BILIRUBIN ADULT 0.6 MG/DL (0.2-1.0)
[2017-03-04] MEDS: PIPERACIL-TAZO 3.375 GM PREMIX 50 ML IV SCH ×3 (06:45→18:05)
[2017-03-04 07:03] LABS: BANDS 3 % (0-6); LYMPHOCYTES 7 % (9-44); METAMYELOCYTES 2 % (0-1); MONOCYTES 5 % (0-8); NEUTROPHIL # MANUAL DIFF 21.7 TH/MM3 (1.8-7.7); POLYS (SEG NEUTROPHILS) 83 % (16-70)
[2017-03-04] MEDS: INSULIN ASPART SUPPLEMENTAL SCALE SQ SCH ×4 (08:49→21:00)
[2017-03-04] MEDS: DOCUSATE SODIUM 50 MG/SENNA 8.6 MG TAB PO SCH ×2 (09:31→21:01)
[2017-03-04] MEDS: SODIUM CHLORIDE 0.9% FLUSH 10 ML FLUSH IV FLUSH SCH ×2 (09:31→21:01)
[2017-03-04] MEDS: APIXABAN 2.5 MG TABLET PO SCH ×2 (09:31→21:01)
[2017-03-04] MEDS: DILTIAZEM-CD 180 MG CAP ER PO SCH (09:31)
[2017-03-04] MEDS: LISINOPRIL 10 MG TAB PO SCH (09:32)
[2017-03-04] MEDS ORDERED: ENALAPRILAT 1.25 MG/ML VIAL IV PUSH PRN (10:45)
--- NOTE | 2017-03-04 11:13 | RADRPT ---
EXAM DATE/TIME: 03/04/2017 10:52 [facility] COMPARISON: CHEST PA & LAT, February 26, 2017, 12:35. INDICATIONS : Cough. MEDICAL HISTORY : Cardiovascular disease. Hypertension Diabetes mellitus type II. SURGICAL HISTORY : None. ENCOUNTER: Initial ACUITY: 1 day PAIN SCORE: Non-responsive. LOCATION: Bilateral chest FINDINGS: PA and lateral views of the chest demonstrate the lungs to be symmetrically aerated without evidence of mass, infiltrate or effusion. The cardiomediastinal contours are unremarkable. Osseous structure s are intact. CONCLUSION: No acute disease. There is no definite evidence of pneumonia. Jea nPaul Gustafson MD on March 04, 2017 at 11:09 Board Certified Radiologist. This report was verified electronically.
[2017-03-04] MEDS ORDERED: IOHEXOL 350 MG/ML 10 ML VIAL (for RAD DIAG) IVCONTRAST ONE (11:25)
--- NOTE | 2017-03-04 11:36 | RADRPT ---
EXAM DATE/TIME: 03/04/2017 11:07 [facility] COMPARISON: CT ABDOMEN & PELVIS W CONTRAST, February 24, 2017, 14:36. INDICATIONS : Generalized abdominal pain. IV CONTRAST: 95 cc Omnipaque 350 (iohexol) IV ORAL CONTRAST: No oral contrast ingested. RADIATION DOSE: 11.51 CTDIvol (mGy) MEDICAL HISTORY : Cardiovascular disease. Hypertension. Diabetes mellitus type 2. SURGICAL HISTORY : None. ENCOUNTER: Initial ACUITY: 1 day PAIN SCALE: 4/10 LOCATION: abdomen TECHNIQUE: Volumetric scanning of the abdomen and pelvis was performed. Using automated exposure control and ad justment of the mA and/or kV according to patient size, radiation dose was kept as low as reasonably achievable to obtain optimal diagnostic quality images. DICOM format image data is available electro nically for review and comparison. FINDINGS: LOWER LUNGS: There is a minimal left effusion noted. There is mild consolidation and or atelectasis in the depende nt portions of both lung bases. LIVER: Homogeneous density without lesion. There is no dilation of the biliary tree. Densely calcified gall stones are again noted layering dependently in the gallbladder with no wall thickening or inflammator y change. SPLEEN: Normal size without lesion. PANCREAS: Within normal limits. KIDNEYS: Normal in size and shape. There is no mass, stone or hydronephrosis. ADRENAL GLANDS: Within normal limits. VASCULAR: There is no aortic aneurysm. BOWEL/MESENTERY: There is a mildly nonspecific, nonobstructive bowel gas pattern with multiple loops of nondilated air -containing small bowel with multiple small air-fluid levels. There is no free air or fluid. There ar e scattered diverticuli. The terminal ileum appears unremarkable. No oral contrast was given limiting the sensitivity of the exam. ABDOMINAL WALL: Within normal limits. RETROPERITONEUM: There is no lymphadenopathy. BLADDER: No wall thickening or mass. REPRODUCTIVE: Within normal limits. INGUINAL: There is no lymphadenopathy or hernia. MUSCULOSKELETAL: Within normal limits for patient age. CONCLUSION: 1. Cholelithiasis again noted with multiple densely calcified gallstones layering dependently. There is no wall thickening or inflammatory change. There is no evidence of biliary obstruction. 2. Mildly nonspecific, nonobstructive bowel gas pattern which may represent a mild gastroenteritis an d/or ileus. 3. Mild diverticulosis with no inflammatory change. Jean Paul Gustafson MD on March 04, 2017 at 11:29 Board Certified Radiologist. This report was verified electronically.
--- NOTE | 2017-03-04 15:09 | EKG ---
Date Performed: 03/03/2017 Time Performed: 22:28:10 PTAGE: 86 years EKG: Sinus rhythm LEFT BUNDLE BRANCH BLOCK ABNORMAL ECG PREVIOUS TRACING : 02/24/2017 22.53 Compared to prior tracing no significant change DOCTOR: Pilo Morel Interpretating Date/Time 03/04/2017 15:08:51
[2017-03-04] MEDS: VANCOMYCIN INJ 1,250 MG in SODIUM CHLOR 0.9% 250 ML INJ 250 ML IV SCH (21:01)
[2017-03-04] MEDS: FAMOTIDINE 20 MG TAB PO SCH (21:01)
[2017-03-05] VITALS (12 sets, daily range): BP systolic 107–145; BP diastolic 57–71; PULSE 70–92; RESP 17–20; TEMP 97.9–99.7; O2SAT 92–96
[2017-03-05] MEDS: PIPERACIL-TAZO 3.375 GM PREMIX 50 ML IV SCH ×4 (01:23→18:04)
[2017-03-05] MEDS: SODIUM CHLOR 0.9% 1000 ML INJ 1,000 ML IV SCH ×2 (04:20→12:30)
[2017-03-05] MEDS: SODIUM CHLORIDE 0.9% FLUSH 10 ML FLUSH IV FLUSH SCH ×2 (07:50→20:42)
[2017-03-05] MEDS: DILTIAZEM-CD 180 MG CAP ER PO SCH (08:47)
[2017-03-05] MEDS: DOCUSATE SODIUM 50 MG/SENNA 8.6 MG TAB PO SCH ×2 (08:47→20:42)
[2017-03-05] MEDS: FAMOTIDINE 20 MG TAB PO SCH ×2 (08:47→20:41)
[2017-03-05] MEDS: APIXABAN 2.5 MG TABLET PO SCH ×2 (08:47→20:42)
[2017-03-05] MEDS: LISINOPRIL 10 MG TAB PO SCH (08:47)
[2017-03-05] MEDS: INSULIN ASPART SUPPLEMENTAL SCALE SQ SCH ×4 (08:47→20:43)
[2017-03-05 10:47] LABS: AUTOMATED NEUTROPHIL # 10.2 TH/MM3 (1.8-7.7); BASOPHIL # 0.1 TH/MM3 (0-0.2); BASOPHIL % 0.5 % (0.0-2.0); EOSINOPHIL % 0.3 % (0.0-4.0); HEMATOCRIT 31.7 % (35.0-46.0); HEMOGLOBIN 10.5 GM/DL (11.6-15.3); LYMPH % 8.4 % (9.0-44.0); LYMPHOCYTE # 1.1 TH/MM3 (1.0-4.8); MEAN CELL VOLUME 89.2 FL (80.0-100.0); MEAN CORPUSCULAR HEMOGLOBIN 29.7 PG (27.0-34.0); MEAN CORPUSCULAR HGB CONC 33.3 % (32.0-36.0); MEAN PLATELET VOLUME 7.4 FL (7.0-11.0); MONO % 11.1 % (0.0-8.0); MONOCYTE # 1.4 TH/MM3 (0-0.9); NEUT % 79.7 % (16.0-70.0); PLATELET COUNT 557 TH/MM3 (150-450); RED BLOOD COUNT 3.55 MIL/MM3 (4.00-5.30); RED CELL DISTRIBUTION WIDTH 12.5 % (11.6-17.2); WHITE BLOOD COUNT 12.8 TH/MM3 (4.0-11.0)
--- NOTE | 2017-03-05 11:10 | HHI.FPPN ---
Subjective Remarks No acute events overnight. Vital signs unremarkable except for O2 around 93% on room air. This morning patient continues to be confused but she does report an improvement in her mental status. Patient is still unable to clearly explain why she came to the hospital besides the feeling of sick. Patient is oriented to self and month but not to year. She does know that she is in the hospital. (Kimberly Scherer MD, R3) Objective Vitals Vital Signs Date Time Temp Pulse Resp B/P (MAP) Pulse Ox O2 Delivery O2 Flow Rate FiO2 03/05/17 08:15 96 Nasal Cannula 3.00 03/05/17 08:00 98.7 88 17 115/57 (76) 96 03/05/17 04:00 92 03/05/17 04:00 97.9 88 19 140/62 (88) 93 03/05/17 00:00 98.1 89 20 145/65 (91) 93 03/05/17 00:00 88 03/04/17 20:00 Room Air 03/04/17 20:00 98.4 93 20 150/69 (96) 92 03/04/17 20:00 90 03/04/17 16:08 99.0 86 19 158/68 (98) 93 03/04/17 15:58 80 03/04/17 13:37 99.1 88 20 160/69 (99) 92 I/O 03/04/17 03/04/17 03/04/17 03/05/17 03/05/17 03/05/17 07:00 15:00 23:00 07:00 15:00 23:00 Intake Total 350 ml 250 ml 100 ml Balance 350 ml 250 ml 100 ml Intake Oral 200 ml 100 ml IV Total 350 ml 50 ml # Voids 3 1 0 5 # Bowel Movements 0 4 (Kimberly Scherer MD, R3) Result Diagram: 03/05/17 0955 03/04/17 0437 Imaging Last Impressions Chest X-Ray 03/04/17 0000 Signed Impressions: Service Date/Time: Saturday, March 04, 2017 10:52 - CONCLUSION: No acute disease. There is no definite evidence of pneumonia. Jean Paul Gustafson MD Abdomen/Pelvis CT 03/04/17 0000 Signed Impressions: Service Date/Time: Saturday, March 04, 2017 11:07 - CONCLUSION: 1. Cholelithiasis again noted with multiple densely calcified gallstones layering dependently. There is no wall thickening or inflammatory change. There is no evidence of biliary obstruction. 2. Mildly nonspecific, nonobstructive bowel gas pattern which may represent a mild gastroenteritis and/or ileus. 3. Mild diverticulosis with no inflammatory change. Jean Paul Gustafson MD Head CT 03/03/17 0000 Signed Impressions: Service Date/Time: Friday, March 03, 2017 22:39 - CONCLUSION: 1. No evidence of acute intracranial pathology. No masses are identified. Ralph Gould MD Objective Remarks GEN: Well-developed, well-nourished patient. No acute distress. Appears confused. Will follow commands but has a delay in processing task. CV: Regular rate and rhythm. 2/6 RUBI heard best on RUSB. LUNGS: Clear to auscultation bilaterally. Normal respiratory effort. No wheezes , rales, rhonchi. GI: Soft, nontender, nondistended. No palpable masses. NEURO/PSYCH: Awake, alert. Normal speech (Kimberly Scherer MD, R3) A/P Assessment and Plan 86 yo female with PMH of DM, HTN, AFib, suspected PMR now presenting with: Discharge Planning Timeline unknown due to continued confusion. Will need rehab at discharge wdw Dr. Tabares (Kimberly Scherer MD, R3) Attending Attestation Patient seen and examined, discussed with Dr. Scherer. I agree with assessment and management as documented and discussed with me. Pt's mentation is slightly improved today. Continue current management. (Bekah Tabares MD) Problem List: (1) SIRS (systemic inflammatory response syndrome) ICD Codes: R65.10 - Systemic inflammatory response syndrome (SIRS) of non- infectious origin without acute organ dysfunction Status: Acute Plan: Leukocytosis significantly improved. Leukocytosis has improved from patient's possible baseline of around 20 hours present on patient's prior discharge from the hospital about a week prior. Thrombocytosis is also improving -Left shift resolved -No source of infection identified on clinical exam -UA, flu, respiratory panel negative. -Blood cultures negative x1day * will continue until abx are negative x2days CXR without focal process Imaging: * Head CT negative * CXR: no acute disease * CT abdomen: Cholelithiasis. No wall thickening or inflammatory changes. No evidence of bilary obstruction. Mildy nonspecific, nonosbtructive bowel gas pattern which may represent a mild gastroenteritis and/or ileus. Mild diverticulosis with no inflammatory change. Medications: * Vancomycin 03/04- * Zosyn 03/04- Relevant PMH: Peripheral smear on 02/28/17: "Review of the peripheral blood reveals increased numbers of white blood cells with an absolute increase of monocytes. Some of the monocytes demonstrate cytoplasmic vacuoles and there are rare immature forms present. Although monocytosis can be seen as a reactive process, if this finding persists, a primary bone marrow disorder should be excluded." * Rheumatologic work-up at prior visit including RF, SUSANNE, and CCP negative (2) Confusion with non-focal neuro exam ICD Codes: R41.0 - Disorientation, unspecified Status: Acute Plan: Delirium without focal neurological changes. Head CT negative -ammonia negative -TSH suppressed with elevated free T4 at 1.53. May be contributing to sx. Possible thyroiditis? * repeat tomorrow -MRI ordered for further evaluation and possible NPH due to the lack of other etiologies at this time. -avoid sedating drugs (3) Heart murmur ICD Codes: R01.1 - Cardiac murmur, unspecified Status: Chronic Plan: Improved sounding murmur may be related to improved hydration. No acute concern at this time. Echo 02/25/17 with normal EF, calcified aortic leaflets, no hemodynamically significant valvular disease - Monitor clinical course. Can consider repeat Echo based on symptoms (4) Atrial fibrillation ICD Codes: I48.91 - Unspecified atrial fibrillation Status: Chronic Plan: Rhythm sinus with normal rate at present - Continue home diltiazem ER - telemetry discontinued - Continue Eliquis (5) Polymyalgia rheumatica ICD Codes: M35.3 - Polymyalgia rheumatica Status: Chronic Plan: Suspected PMR diagnosed last visit, on prednisone < 1 week - Hold prednisone for now given SIRS - PT/OT (6) Essential hypertension ICD Codes: I10 - Essential (primary) hypertension Status: Chronic Plan: BP mildly elevated on admission - Continue home lisinopril - Continue to monitor (7) Diabetes mellitus ICD Codes: E11.9 - Type 2 diabetes mellitus without complications Status: Chronic Plan: Hold home metformin - Very low dose SSI (Novolog) - Diet diabetic (8) FEN/PPX Plan: Fluids: NS @ 75 cc/hr Electrolytes: Monitor and replace PRN Nutrition: Diabetic (Kimberly Scherer MD, R3) Problem Qualifiers (1) Atrial fibrillation: Qualified Codes: I48.0 - Paroxysmal atrial fibrillation Kimberly Scherer MD, R3 Mar 05, 2017 11:10 Bekah Tabares MD Mar 07, 2017 07:10
[2017-03-05 11:16] LABS: ALBUMIN 1.7 GM/DL (3.4-5.0); AST (GOT) 66 U/L (15-37); BICARBONATE 23.9 MEQ/L (21.0-32.0); BLOOD UREA NITROGEN 11 MG/DL (7-18); CALCIUM 8.7 MG/DL (8.5-10.1); CHLORIDE 99 MEQ/L (98-107); CREATININE 0.98 MG/DL (0.50-1.00); GLOMERULAR FILTRATION RATE 54 ML/MIN (>89); GLUCOSE,RANDOM 145 MG/DL (74-106); SODIUM (NA) 134 MEQ/L (136-145)
[2017-03-05 11:19] LABS: ALKALINE PHOSPHATASE 137 U/L (45-117); ALT (GPT) 62 U/L (10-53); TOTAL BILIRUBIN ADULT 0.5 MG/DL (0.2-1.0); TOTAL PROTEIN 6.3 GM/DL (6.4-8.2)
[2017-03-05] MEDS ORDERED: PILL SPLITTER OTHER PRN (15:30)
[2017-03-05] MEDS: VANCOMYCIN INJ 1,250 MG in SODIUM CHLOR 0.9% 250 ML INJ 250 ML IV SCH (20:42)
[2017-03-06] VITALS (9 sets, daily range): BP systolic 121–170; BP diastolic 58–74; PULSE 72–83; RESP 16–20; TEMP 98–99.7; O2SAT 92–97
[2017-03-06] MEDS: PIPERACIL-TAZO 3.375 GM PREMIX 50 ML IV SCH ×5 (00:27→23:59)
[2017-03-06] MEDS: SODIUM CHLOR 0.9% 1000 ML INJ 1,000 ML IV SCH (03:45)
--- NOTE | 2017-03-06 06:56 | HHI.FPPN ---
Subjective Remarks No acute events overnight. VS unremarkable. This morning patient reports that she is doing well but does have a sore throat. Denies chest pain, SOB, abdominal pain. Reports that her mind is more clear. Nurse does state that patient was drinking water while laying down and will choke on it. When sitting up, she is able to clear airway without issue and nurse reports there is no choking while drinking fluids while sitting up. In regards to the MRI, it is scheduled for today. Delay was due to getting consent paperwork filled out by the family. (Kimberly Scherer MD, R3) Objective Vitals Vital Signs Date Time Temp Pulse Resp B/P (MAP) Pulse Ox O2 Delivery O2 Flow Rate FiO2 03/06/17 06:38 Room Air 03/06/17 04:00 Nasal Cannula 3.00 03/06/17 04:00 98.2 74 18 121/58 (79) 97 03/06/17 03:46 73 03/06/17 02:31 Nasal Cannula 3.00 03/06/17 00:00 99.7 75 16 157/65 (95) 96 03/06/17 00:00 Nasal Cannula 3.00 03/05/17 23:50 75 03/05/17 20:00 99.7 82 17 137/61 (86) 96 03/05/17 20:00 Nasal Cannula 3.00 03/05/17 19:44 79 03/05/17 16:00 98.4 76 17 123/59 (80) 96 03/05/17 15:51 70 03/05/17 12:01 78 03/05/17 12:00 98.7 86 17 107/71 (83) 92 03/05/17 08:15 96 Nasal Cannula 3.00 03/05/17 08:00 98.7 88 17 115/57 (76) 96 03/05/17 07:55 77 I/O 03/05/17 03/05/17 03/05/17 03/06/17 03/06/17 03/06/17 07:00 15:00 23:00 07:00 15:00 23:00 Intake Total 100 ml 50 ml 2035 ml 770 ml Balance 100 ml 50 ml 2035 ml 770 ml Intake Oral 100 ml 720 ml 720 ml IV Total 50 ml 1315 ml 50 ml # Voids 5 6 2 # Bowel Movements 4 (Kimberly Scherer MD, R3) Result Diagram: 03/05/17 0903/05/17 09 Objective Remarks GEN: Well-developed, well-nourished patient. No acute distress. Mental status improved. Able to follow commands more promptly. CV: Regular rate and rhythm. 1/6 RUBI heard best on RUSB. LUNGS: Good air movement but bibasilar crackles present. Normal respiratory effort. GI:Non distended. LE: no LE edema or calf tenderness. NEURO/PSYCH: Awake, alert. Normal speech. CN II-XII excluding VIII were intact. Finger to nose equal bilaterally. (Kimberly Scherer MD, R3) A/P Assessment and Plan 86 yo female with PMH of DM, HTN, AFib, suspected PMR now presenting with: Discharge Planning 1-2days pending continued improvement in mental status and further evaluation of pulmonary status. * To be discharged to rehab wdw Dr. Tabares (Kimberly Scherer MD, R3) Attending Attestation Patient seen and examined, discussed with Dr. Scherer. I agree with assessment and management as documented and discussed with me. (Bekah Tabares MD) Problem List: (1) SIRS (systemic inflammatory response syndrome) ICD Codes: R65.10 - Systemic inflammatory response syndrome (SIRS) of non- infectious origin without acute organ dysfunction Status: Acute Plan: Leukocytosis significantly improved. Leukocytosis has improved from patient's possible baseline of around 20 present on patient's prior discharge from the hospital about a week prior. Thrombocytosis is also improving -Left shift resolved -No source of infection identified on clinical exam -UA, flu, respiratory panel negative. -Blood cultures negative x2day Initial CXR without focal process Imaging: * Head CT negative * CXR: no acute disease * CT abdomen: Cholelithiasis. No wall thickening or inflammatory changes. No evidence of bilary obstruction. Mildy nonspecific, nonosbtructive bowel gas pattern which may represent a mild gastroenteritis and/or ileus. Mild diverticulosis with no inflammatory change. Medications: * Will continue until repeat CXR is performed 03/06/2017 * Vancomycin 03/04- * Zosyn 03/04- Relevant PMH: Peripheral smear on 02/28/17: "Review of the peripheral blood reveals increased numbers of white blood cells with an absolute increase of monocytes. Some of the monocytes demonstrate cytoplasmic vacuoles and there are rare immature forms present. Although monocytosis can be seen as a reactive process, if this finding persists, a primary bone marrow disorder should be excluded." * Rheumatologic work-up at prior visit including RF, SUSANNE, and CCP negative (2) Confusion with non-focal neuro exam ICD Codes: R41.0 - Disorientation, unspecified Status: Acute Plan: Delirium without focal neurological changes. Head CT negative -ammonia negative -TSH suppressed with elevated free T4 at 1.53. May be contributing to sx. Possible thyroiditis? * repeat pending -MRI ordered for further evaluation and possible NPH due to the lack of other etiologies at this time. Nurse does report urinary incontinence * pending -avoid sedating drugs (3) Bibasilar crackles ICD Codes: R09.89 - Other specified symptoms and signs involving the circulatory and respiratory systems Status: Acute Plan: Newly developed bibasilar crackles without subjective change in respiratory status or increased demand of supplemental O2. -May be related to fluid overload -At risk for aspiration, speech swallow eval ordered -discontinue fluids -discontinue unnecessary O2 supplementation -CXR ordered -may need Lasix pending XR findings. (4) Heart murmur ICD Codes: R01.1 - Cardiac murmur, unspecified Status: Chronic Plan: Improved sounding murmur may be related to improved hydration. No acute concern at this time. Echo 02/25/17 with normal EF, calcified aortic leaflets, no hemodynamically significant valvular disease - Monitor clinical course. Can consider repeat Echo based on symptoms (5) Atrial fibrillation ICD Codes: I48.91 - Unspecified atrial fibrillation Status: Chronic Plan: Rhythm sinus with normal rate at present - Continue home diltiazem ER - telemetry will continue x24 more hours due to 1 episode of tachycardia briefly on 03/05/17 - Continue Eliquis (6) Polymyalgia rheumatica ICD Codes: M35.3 - Polymyalgia rheumatica Status: Chronic Plan: Suspected PMR diagnosed last visit, on prednisone < 1 week - Hold prednisone for now given SIRS - PT/OT (7) Essential hypertension ICD Codes: I10 - Essential (primary) hypertension Status: Chronic Plan: BP mildly elevated on admission - Continue home lisinopril - Continue to monitor (8) Diabetes mellitus ICD Codes: E11.9 - Type 2 diabetes mellitus without complications Status: Chronic Plan: Hold home metformin - Very low dose SSI (Novolog) - Diet diabetic (9) FEN/PPX Plan: Fluids: discontinues due to concern for fluid overload Electrolytes: Monitor and replace PRN Nutrition: Diabetic DVT PPX: on Eliquis GI PPX: continue home pepcid due to prior steroid use. (Kimberly Scherer MD, R3) Problem Qualifiers (1) Atrial fibrillation: Qualified Codes: I48.0 - Paroxysmal atrial fibrillation Kimberly Scherer MD, R3 Mar 06, 2017 06:56 Bekah Tabares MD Mar 07, 2017 07:11
[2017-03-06] MEDS: INSULIN ASPART SUPPLEMENTAL SCALE SQ SCH ×4 (08:00→21:00)
--- NOTE | 2017-03-06 08:26 | RADRPT ---
EXAM DATE/TIME: 03/06/2017 08:06 [facility] COMPARISON: CHEST PA & LAT, March 04, 2017, 10:52. INDICATIONS : Cough, congestion. MEDICAL HISTORY : Cardiovascular disease. Hypertension Diabetes mellitus type II. A-Fib. SURGICAL HISTORY : None. ENCOUNTER: Subsequent ACUITY: 2 weeks PAIN SCORE: 0/10 LOCATION: Bilateral chest FINDINGS: PA and lateral views of the chest demonstrate chronic appearing interstitial densities. Left basilar density. Heart normal in size.. Osseous structures are intact. CONCLUSION: 1. Chronic appearing interstitial densities. 2. Left basilar density could be atelectasis or infiltrate. Jamison Kumar MD on March 06, 2017 at 8:23 Board Certified Radiologist. This report was verified electronically.
[2017-03-06] MEDS: FAMOTIDINE 20 MG TAB PO SCH ×2 (08:57→21:05)
[2017-03-06] MEDS: DILTIAZEM-CD 180 MG CAP ER PO SCH (08:57)
[2017-03-06] MEDS: APIXABAN 2.5 MG TABLET PO SCH ×2 (08:57→21:05)
[2017-03-06] MEDS: LISINOPRIL 10 MG TAB PO SCH (08:57)
[2017-03-06] MEDS: DOCUSATE SODIUM 50 MG/SENNA 8.6 MG TAB PO SCH ×2 (08:57→21:05)
[2017-03-06] MEDS ORDERED: GADODIAMIDE PF 287 MG/ML 5 ML VIAL (for RAD MRI) IVCONTRAST ONE (09:59)
--- NOTE | 2017-03-06 11:00 | RADRPT ---
EXAM DATE/TIME: 03/06/2017 09:40 [facility] COMPARISON: CT BRAIN W/O CONTRAST, March 03, 2017, 22:39. INDICATIONS : Normal pressure hydrocephalus. CONTRAST: 11 cc Omniscan (gadodiamide) IV MEDICAL HISTORY : Hypertension. Diabetes mellitus type 2. SURGICAL HISTORY : None. ENCOUNTER: Subsequent ACUITY: 1 week PAIN SCORE: 0/10 LOCATION: head. TECHNIQUE: Multiplanar, multisequence MRI of the brain was performed both prior to and following the administrat ion of paramagnetic contrast. FINDINGS: CEREBRUM: The ventricles are mildly prominent consistent with atrophy.. No evidence of midline shift, mass les ion or hemorrhage. No extraaxial fluid collections are seen. The pituitary gland and suprasellar ci stafford are normal in configuration. WHITE MATTER: Scattered foci of bright T2 signal abnormalities are seen in the white matter. POSTERIOR FOSSA: The cerebellum and brainstem are intact. The 4th ventricle is midline. The cerebellopontine angle is unremarkable. The cerebellar tonsils are normal in position. DIFFUSION IMAGING: Tiny focal area of restricted diffusion in the right high parietal lobe could be punctate acute infar ct. EXTRACRANIAL: The visualized portions of the orbits and paranasal sinuses are unremarkable. POST-CONTRAST: No abnormal areas of parenchymal or dural enhancement. No evidence of blood-brain barrier breakdown. CONCLUSION: 1. Focal punctate area of restricted diffusion right high parietal lobe along the cortex could be a t iny infarct. 2. Cerebral atrophy. 3. Chronic ischemic small vessel vasculopathy. Jamison Kumar MD on March 06, 2017 at 10:54 Board Certified Radiologist. This report was verified electronically.
[2017-03-06] MEDS: SODIUM CHLORIDE 0.9% FLUSH 10 ML FLUSH IV FLUSH SCH ×2 (12:06→21:04)
[2017-03-06 12:39] LABS: AUTOMATED NEUTROPHIL # 7.8 TH/MM3 (1.8-7.7); BASOPHIL # 0.1 TH/MM3 (0-0.2); BASOPHIL % 0.7 % (0.0-2.0); EOSINOPHIL # 0.1 TH/MM3 (0-0.4); EOSINOPHIL % 0.9 % (0.0-4.0); HEMATOCRIT 30.5 % (35.0-46.0); HEMOGLOBIN 10.6 GM/DL (11.6-15.3); LYMPH % 13.5 % (9.0-44.0); LYMPHOCYTE # 1.4 TH/MM3 (1.0-4.8); MEAN CELL VOLUME 89.2 FL (80.0-100.0); MEAN CORPUSCULAR HGB CONC 34.8 % (32.0-36.0); MEAN PLATELET VOLUME 7.4 FL (7.0-11.0); MONO % 11.4 % (0.0-8.0); MONOCYTE # 1.2 TH/MM3 (0-0.9); NEUT % 73.5 % (16.0-70.0); PLATELET COUNT 540 TH/MM3 (150-450); RED BLOOD COUNT 3.42 MIL/MM3 (4.00-5.30); RED CELL DISTRIBUTION WIDTH 12.5 % (11.6-17.2); WHITE BLOOD COUNT 10.6 TH/MM3 (4.0-11.0)
[2017-03-06 13:11] LABS: ALBUMIN 1.6 GM/DL (3.4-5.0); AST (GOT) 70 U/L (15-37); BICARBONATE 24.9 MEQ/L (21.0-32.0); BLOOD UREA NITROGEN 13 MG/DL (7-18); CALCIUM 8.2 MG/DL (8.5-10.1); CHLORIDE 102 MEQ/L (98-107); CREATININE 0.94 MG/DL (0.50-1.00); GLOMERULAR FILTRATION RATE 56 ML/MIN (>89); GLUCOSE,RANDOM 185 MG/DL (74-106); SODIUM (NA) 134 MEQ/L (136-145)
[2017-03-06 13:19] LABS: ALKALINE PHOSPHATASE 132 U/L (45-117); ALT (GPT) 68 U/L (10-53); FREE T4 1.35 NG/DL (0.76-1.46); TOTAL BILIRUBIN ADULT 0.3 MG/DL (0.2-1.0); TOTAL PROTEIN 6.3 GM/DL (6.4-8.2)
[2017-03-06] MEDS ORDERED: PHARMACY ORDERED LAB ONE (20:45)
[2017-03-07] VITALS: BP 145/66; PULSE 67; PULSE 68; RESP 16; TEMP 98.1; O2SAT 93
[2017-03-07 04:00] VITALS: BP 145/67; PULSE 64; RESP 18; TEMP 97.8; O2SAT 94
[2017-03-07 04:05] VITALS: PULSE 63
[2017-03-07] MEDS: PIPERACIL-TAZO 3.375 GM PREMIX 50 ML IV SCH (05:51)
--- NOTE | 2017-03-07 07:26 | HHI.FPPN ---
Subjective Remarks No acute events overnight. VS unremarkable. This morning patient states that she is ready to go. She feels much better and feels like her mind is much clearer. She does complain of a sore throat and abdominal "soreness" only when she coughs. Denies chest pain, SOB. (Kimberly Scherer MD, R3) Objective Vitals Vital Signs Date Time Temp Pulse Resp B/P (MAP) Pulse Ox O2 Delivery O2 Flow Rate FiO2 03/07/17 04:05 63 03/07/17 04:00 97.8 64 18 145/67 (93) 94 03/07/17 04:00 Room Air 03/07/17 00:00 Room Air 03/07/17 00:00 67 03/07/17 00:00 98.1 68 16 145/66 (92) 93 03/07/17 00:00 Room Air 03/06/17 20:27 76 03/06/17 20:00 Room Air 03/06/17 20:00 98.0 78 20 168/74 (105) 93 03/06/17 17:24 93 21 03/06/17 16:00 98.4 72 20 170/71 (104) 94 03/06/17 12:00 98.9 73 20 147/68 (94) 92 03/06/17 11:19 Nasal Cannula 3.00 03/06/17 08:00 76 03/06/17 08:00 98.4 83 20 139/65 (89) 92 03/06/17 08:00 92 Room Air 21 I/O 03/06/17 03/06/17 03/06/17 03/07/17 03/07/17 03/07/17 07:00 15:00 23:00 07:00 15:00 23:00 Intake Total 770 ml 50 ml 750 ml 530 ml Output Total 350 ml Balance 770 ml 50 ml 750 ml 180 ml Intake Oral 720 ml 480 ml IV Total 50 ml 50 ml 750 ml 50 ml Output Urine Total 350 ml # Voids 2 3 4 3 # Bowel Movements 0 0 (Kimberly Scherer MD, R3) Result Diagram: 03/06/17 1154 03/06/17 1154 Objective Remarks GEN: Well-developed, well-nourished patient. No acute distress. Mental status much improved. Able to follow commands more promptly and respond appropriately CV: Regular rate and rhythm. 1/6 RUBI heard best on RUSB. LUNGS: Good air movement but bibasilar crackles present still present. Normal respiratory effort. GI:Soft, non distended. Non tender to palpation LE: no LE edema or calf tenderness. NEURO/PSYCH: Awake, alert. Normal speech. Much more responsive. Oriented to person, place, and time. (Kimberly Scherer MD, R3) A/P Assessment and Plan 86 yo female with PMH of DM, HTN, AFib, suspected PMR now presenting with: Discharge Planning Today * To be discharged to rehab dw Dr. Tabares (Kimberly Scherer MD, R3) Attending Attestation Patient seen, examined, and discussed with Dr. Scherer. I agree with assessment and management as documented and discussed with me. Pt is much improved today - mentation is back to baseline. Will discharge back to SNF today, to complete course of abx as ordered. Greater than 30 minutes spent personally counselling and coordinating care at discharge. (Bekah Tabares MD) Problem List: (1) PNA (pneumonia) ICD Codes: J18.9 - Pneumonia, unspecified organism Status: Acute Plan: Bibasilar crackles now present with CXR showing possible infilate. Suspect PNA was source of clinical change/symptoms. Pt also a high aspiration risk -speech consulted: recommended thickened liquids -see more detailed plan under Sepsis (2) Sepsis ICD Codes: A41.9 - Sepsis, unspecified organism Status: Resolved Plan: Met SIRS criteria on admission. Leukocytosis resolved. Leukocytosis has improved from patient's possible baseline of around 20 present on patient's prior discharge from the hospital about a week prior. Thrombocytosis improved but now stable at around 550. Suspect symptoms were related to Pneumonia as follow up CXR revealed possible infiltrate of left base. -Left shift resolved -Blood cultures negative x3day Imaging: * 03/06: Chronic appearing interstitial densities. Left basilar density could be atelectasis or infiltrate. * Head CT negative * CXR: no acute disease * CT abdomen: Cholelithiasis. No wall thickening or inflammatory changes. No evidence of bilary obstruction. Mildy nonspecific, nonosbtructive bowel gas pattern which may represent a mild gastroenteritis and/or ileus. Mild diverticulosis with no inflammatory change. Medications: * Vancomycin 03/04-03/06 * Zosyn 03/04-03/07 * Levaquin 750mg x1 today, to be continued for 4 more days at discharge Relevant PMH: Peripheral smear on 02/28/17: "Review of the peripheral blood reveals increased numbers of white blood cells with an absolute increase of monocytes. Some of the monocytes demonstrate cytoplasmic vacuoles and there are rare immature forms present. Although monocytosis can be seen as a reactive process, if this finding persists, a primary bone marrow disorder should be excluded." * Rheumatologic work-up at prior visit including RF, SUSANNE, and CCP negative (3) Confusion with non-focal neuro exam ICD Codes: R41.0 - Disorientation, unspecified Status: Resolved Plan: Delirium without focal neurological changes. Head CT negative. MRI showed focal punctate area of restricted diffusion right high parietal lobe along the cortex, could be a tiny infarct. -Because of the lack of clinical neurological changes and the indeterminate nature of radiological findings, low suspicion that symptoms were related to MRI findings -However, pt would benefit from statin especially in the setting of age and DM -Will refrain from aspirin due to patient already being on Eliquis and she being a high fall risk. -Suppressed TSH and elevated T4 improving. (4) Atrial fibrillation ICD Codes: I48.91 - Unspecified atrial fibrillation Status: Chronic Plan: Rhythm sinus with normal rate at present - Continue home diltiazem ER - telemetry will continue xdue to 1 episode of tachycardia briefly on 03/05/17 - Continue Eliquis (5) Polymyalgia rheumatica ICD Codes: M35.3 - Polymyalgia rheumatica Status: Chronic Plan: Suspected PMR diagnosed last visit, on prednisone < 1 week. Continue to hold prednisone. To be re-evaluated as an outpatient. - Hold prednisone for now given SIRS - PT/OT (6) Essential hypertension ICD Codes: I10 - Essential (primary) hypertension Status: Chronic Plan: BP mildly elevated on admission - Continue home lisinopril - Continue to monitor (7) Diabetes mellitus ICD Codes: E11.9 - Type 2 diabetes mellitus without complications Status: Chronic Plan: Hold home metformin - Very low dose SSI (Novolog) - Diet diabetic (8) FEN/PPX Plan: Fluids: PO Electrolytes: Monitor and replace PRN Nutrition: Diabetic, thicken liquids per speech DVT PPX: on Eliquis GI PPX: continue home pepcid due to prior steroid use. (Kimberly Scherer MD, R3) Problem Qualifiers (1) Atrial fibrillation: Qualified Codes: I48.0 - Paroxysmal atrial fibrillation Kimberly Scherer MD, R3 Mar 07, 2017 07:26 Bekah Tabares MD Mar 07, 2017 16:07
[2017-03-07 08:02] VITALS: BP 185/85; PULSE 92; RESP 22; TEMP 97.7; O2SAT 94
[2017-03-07] MEDS ORDERED: guaiFENesin ER PO (08:05)
--- NOTE | 2017-03-07 08:07 | HHI.DCPOC ---
Discharge Care Plan Diagnosis: (1) PNA (pneumonia) (2) Delirium (3) Subclinical hyperthyroidism Goals to Promote Your Health * To prevent worsening of your condition and complications * To maintain your health at the optimal level Directions to Meet Your Goals Take your medications as prescribed Follow your dietary instruction Follow activity as directed Keep your appointments as scheduled Take your immunizations and boosters as scheduled If your symptoms worsen call your PCP, if no PCP go to Urgent Care Center or Emergency Room Smoking is Dangerous to Your Health. Avoid second hand smoke Call the 24-hour hour crisis hotline for domestic abuse at Kimberly Scherer MD, R3 Mar 07, 2017 08:06
[2017-03-07] MEDS ORDERED: LEVA750T9 PO (08:09)
[2017-03-07] MEDS ORDERED: ATOR40TA16 PO (08:09)
[2017-03-07 08:16] LABS: AUTOMATED NEUTROPHIL # 8.4 TH/MM3 (1.8-7.7); BASOPHIL # 0.1 TH/MM3 (0-0.2); BASOPHIL % 0.8 % (0.0-2.0); EOSINOPHIL # 0.1 TH/MM3 (0-0.4); EOSINOPHIL % 0.7 % (0.0-4.0); HEMATOCRIT 35.8 % (35.0-46.0); HEMOGLOBIN 12.3 GM/DL (11.6-15.3); LYMPH % 10.2 % (9.0-44.0); LYMPHOCYTE # 1.1 TH/MM3 (1.0-4.8); MEAN CELL VOLUME 88.5 FL (80.0-100.0); MEAN CORPUSCULAR HEMOGLOBIN 30.3 PG (27.0-34.0); MEAN CORPUSCULAR HGB CONC 34.2 % (32.0-36.0); MONO % 10.4 % (0.0-8.0); MONOCYTE # 1.1 TH/MM3 (0-0.9); NEUT % 77.9 % (16.0-70.0); PLATELET COUNT 558 TH/MM3 (150-450); RED BLOOD COUNT 4.04 MIL/MM3 (4.00-5.30); RED CELL DISTRIBUTION WIDTH 12.6 % (11.6-17.2); WHITE BLOOD COUNT 10.8 TH/MM3 (4.0-11.0)
[2017-03-07 08:33] LABS: BICARBONATE 24.6 MEQ/L (21.0-32.0); CREATININE 0.88 MG/DL (0.50-1.00)
[2017-03-07] MEDS: LISINOPRIL 10 MG TAB PO SCH (08:57)
[2017-03-07] MEDS: APIXABAN 2.5 MG TABLET PO SCH (08:57)
[2017-03-07] MEDS: DOCUSATE SODIUM 50 MG/SENNA 8.6 MG TAB PO SCH (08:57)
[2017-03-07] MEDS: DILTIAZEM-CD 180 MG CAP ER PO SCH (08:57)
[2017-03-07] MEDS: FAMOTIDINE 20 MG TAB PO SCH (08:58)
[2017-03-07] MEDS: INSULIN ASPART SUPPLEMENTAL SCALE SQ SCH (08:58)
[2017-03-07] MEDS: SODIUM CHLORIDE 0.9% FLUSH 10 ML FLUSH IV FLUSH SCH (08:59)
[2017-03-07] MEDS ORDERED: guaiFENesin E.R. 600 MG TAB PO SCH (09:00)
[2017-03-07] MEDS ORDERED: LEVOFLOXACIN 750 MG TAB PO SCH (09:00)
[2017-03-07 09:39] VITALS: O2SAT 94
[2017-03-07 09:46] LABS: BANDS 16 % (0-6); LYMPHOCYTES 6 % (9-44); METAMYELOCYTES 1 % (0-1); MONOCYTES 17 % (0-8); NEUTROPHIL # MANUAL DIFF 8.3 TH/MM3 (1.8-7.7); POLYS (SEG NEUTROPHILS) 60 % (16-70)
[2017-03-07 12:02] VITALS: BP 166/77; PULSE 88; RESP 20; TEMP 98.5; O2SAT 94
--- NOTE | 2017-03-07 14:20 | HHI.DS ---
Discharge Summary Admission Date Mar 04, 2017 at 04:41 Discharge Date: Mar 07, 2017 Admitting Diagnosis SIRS, Altered mental status. (1) PNA (pneumonia) Plan: Bibasilar crackles now present with CXR showing possible infilate. Suspect PNA was source of clinical change/symptoms. Pt also a high aspiration risk -speech consulted: recommended thickened liquids -see more detailed plan under Sepsis ICD Codes: J18.9 - Pneumonia, unspecified organism Status: Acute (2) Sepsis Plan: Met SIRS criteria on admission. Leukocytosis resolved. Leukocytosis has improved from patient's possible baseline of around 20 present on patient's prior discharge from the hospital about a week prior. Thrombocytosis improved but now stable at around 550. Suspect symptoms were related to Pneumonia as follow up CXR revealed possible infiltrate of left base. -Left shift resolved -Blood cultures negative x3day Imaging: * 03/06: Chronic appearing interstitial densities. Left basilar density could be atelectasis or infiltrate. * Head CT negative * CXR: no acute disease * CT abdomen: Cholelithiasis. No wall thickening or inflammatory changes. No evidence of bilary obstruction. Mildy nonspecific, nonosbtructive bowel gas pattern which may represent a mild gastroenteritis and/or ileus. Mild diverticulosis with no inflammatory change. Medications: * Vancomycin 03/04-03/06 * Zosyn 03/04-03/07 * Levaquin 750mg x1 today, to be continued for 4 more days at discharge Relevant PMH: Peripheral smear on 02/28/17: "Review of the peripheral blood reveals increased numbers of white blood cells with an absolute increase of monocytes. Some of the monocytes demonstrate cytoplasmic vacuoles and there are rare immature forms present. Although monocytosis can be seen as a reactive process, if this finding persists, a primary bone marrow disorder should be excluded." * Rheumatologic work-up at prior visit including RF, SUSANNE, and CCP negative ICD Codes: A41.9 - Sepsis, unspecified organism Status: Resolved (3) Confusion with non-focal neuro exam Plan: Delirium without focal neurological changes. Head CT negative. MRI showed focal punctate area of restricted diffusion right high parietal lobe along the cortex, could be a tiny infarct. -Because of the lack of clinical neurological changes and the indeterminate nature of radiological findings, low suspicion that symptoms were related to MRI findings -However, pt would benefit from statin especially in the setting of age and DM -Will refrain from aspirin due to patient already being on Eliquis and she being a high fall risk. -Suppressed TSH and elevated T4 improving. ICD Codes: R41.0 - Disorientation, unspecified Status: Resolved (4) Atrial fibrillation Plan: Rhythm sinus with normal rate at present - Continue home diltiazem ER - telemetry will continue xdue to 1 episode of tachycardia briefly on 03/05/17 - Continue Eliquis ICD Codes: I48.91 - Unspecified atrial fibrillation Status: Chronic (5) Polymyalgia rheumatica Plan: Suspected PMR diagnosed last visit, on prednisone < 1 week. Continue to hold prednisone. To be re-evaluated as an outpatient. - Hold prednisone for now given SIRS - PT/OT ICD Codes: M35.3 - Polymyalgia rheumatica Status: Chronic (6) Essential hypertension Plan: BP mildly elevated on admission - Continue home lisinopril - Continue to monitor ICD Codes: I10 - Essential (primary) hypertension Status: Chronic (7) Diabetes mellitus Plan: Hold home metformin - Very low dose SSI (Novolog) - Diet diabetic ICD Codes: E11.9 - Type 2 diabetes mellitus without complications Status: Chronic (8) FEN/PPX Plan: Fluids: PO Electrolytes: Monitor and replace PRN Nutrition: Diabetic, thicken liquids per speech DVT PPX: on Eliquis GI PPX: continue home pepcid due to prior steroid use. Brief History 86-year-old female with past medical history of cholelithiasis, diabetes, hypertension, newly diagnosed atrial fibrillation and suspected polymyalgia rheumatica presenting from short-term rehabilitation facility due to fever and confusion. She was discharged from [place] a few days ago after being diagnosed with AFib and being started on treatment for global weakness suspected to be due to PMR. Over the last couple days at rehabilitation, patient states that her sore throat and cough, which were mild on hospital discharge, have now worsened. She also developed a fever. Additionally, rehabilitation facility staff reported to the ED physician that she had been confused today. Patient denies focal weakness, chest pain, shortness of breath, abdominal pain. CBC/BMP: 03/07/17 0733 03/07/17 0733 Significant Findings Laboratory Tests Test 03/05/17 09:55 03/06/17 11:54 03/07/17 07:33 White Blood Count 12.8 TH/MM3 (4.0-11.0) Red Blood Count 3.55 MIL/MM3 (4.00-5.30) 3.42 MIL/MM3 (4.00-5.30) Hemoglobin 10.5 GM/DL (11.6-15.3) 10.6 GM/DL (11.6-15.3) Hematocrit 31.7 % (35.0-46.0) 30.5 % (35.0-46.0) Platelet Count 557 TH/MM3 (150-450) 540 TH/MM3 (150-450) 558 TH/MM3 (150-450) Neutrophils (%) (Auto) 79.7 % (16.0-70.0) 73.5 % (16.0-70.0) 77.9 % (16.0-70.0) Lymphocytes (%) (Auto) 8.4 % (9.0-44.0) Monocytes (%) (Auto) 11.1 % (0.0-8.0) 11.4 % (0.0-8.0) 10.4 % (0.0-8.0) Neutrophils # (Auto) 10.2 TH/MM3 (1.8-7.7) 7.8 TH/MM3 (1.8-7.7) 8.4 TH/MM3 (1.8-7.7) Monocytes # (Auto) 1.4 TH/MM3 (0-0.9) 1.2 TH/MM3 (0-0.9) 1.1 TH/MM3 (0-0.9) Random Glucose 145 MG/DL (74-106) 185 MG/DL (74-106) 152 MG/DL (74-106) Total Protein 6.3 GM/DL (6.4-8.2) 6.3 GM/DL (6.4-8.2) Albumin 1.7 GM/DL (3.4-5.0) 1.6 GM/DL (3.4-5.0) Alkaline Phosphatase 137 U/L (45-117) 132 U/L (45-117) Aspartate Amino Transf (AST/SGOT) 66 U/L (15-37) 70 U/L (15-37) Alanine Aminotransferase (ALT/SGPT) 62 U/L (10-53) 68 U/L (10-53) Sodium Level 134 MEQ/L (136-145) 134 MEQ/L (136-145) Estimat Glomerular Filtration Rate 54 ML/MIN (>89) 56 ML/MIN (>89) 61 ML/MIN (>89) Platelet Estimate HIGH (NORMAL) HIGH (NORMAL) Calcium Level 8.2 MG/DL (8.5-10.1) Thyroid Stimulating Hormone 3rd Gen 0.336 uIU/ML (0.358-3.740) Band Neutrophils % 16 % (0-6) Lymphocytes % 6 % (9-44) Monocytes % 17 % (0-8) Neutrophils # (Manual) 8.3 TH/MM3 (1.8-7.7) Imaging Last Impressions Chest X-Ray 03/06/17 0000 Signed Impressions: Service Date/Time: February 08:06 - CONCLUSION: 1. Chronic appearing interstitial densities. 2. Left basilar density could be atelectasis or infiltrate. Jamison Kumar MD Brain MRI 03/06/17 0000 Signed Impressions: Service Date/Time: February 09:40 - CONCLUSION: 1. Focal punctate area of restricted diffusion right high parietal lobe along the cortex could be a tiny infarct. 2. Cerebral atrophy. 3. Chronic ischemic small vessel vasculopathy. Jamison Kumar MD Abdomen/Pelvis CT 03/04/17 0000 Signed Impressions: Service Date/Time: Saturday, March 04, 2017 11:07 - CONCLUSION: 1. Cholelithiasis again noted with multiple densely calcified gallstones layering dependently. There is no wall thickening or inflammatory change. There is no evidence of biliary obstruction. 2. Mildly nonspecific, nonobstructive bowel gas pattern which may represent a mild gastroenteritis and/or ileus. 3. Mild diverticulosis with no inflammatory change. Jean Paul Gustafson MD Head CT 03/03/17 0000 Signed Impressions: Service Date/Time: Friday, March 03, 2017 22:39 - CONCLUSION: 1. No evidence of acute intracranial pathology. No masses are identified. Ralph Gould MD PE at Discharge GEN: Well-developed, well-nourished patient. No acute distress. Mental status much improved. Able to follow commands more promptly and respond appropriately CV: Regular rate and rhythm. 1/6 RUBI heard best on RUSB. LUNGS: Good air movement but bibasilar crackles present still present. Normal respiratory effort. GI:Soft, non distended. Non tender to palpation LE: no LE edema or calf tenderness. NEURO/PSYCH: Awake, alert. Normal speech. Much more responsive. Oriented to person, place, and time. Hospital Course Patient is an 86-year-old female with history significant for DM, HTN, A. fib and suspected polymyalgia rheumatica. Initially presented due to confusion and fever. Met SIRS criteria as there was no clear infectious etiology on admission. Initial chest x-ray, head CT, CT abdomen unremarkable. Patient was started on vancomycin and Zosyn due to complex picture. Of note, patient was recently admitted prior to this admission from 02/24 through 02/28 for A. fib with RVR. It was also during that visit she was noted to have elevated ESR and leukocytosis which supported the diagnosis of possible polymyalgia rheumatica. Steroids were initiated at that time but held for this admission. Patient slowly improved her mental status during hospitalization. Chest x-ray on day 3 of admission showed possible left basilar infiltrate which supported the diagnosis of pneumonia. Vancomycin was discontinued while Zosyn was continued. MRI was also performed which showed possible infarct but based on clinical presentation and exam, did not suspect stroke was related to presentation. However patient is at risk for strokes so statin was started but not aspirin due to use of Eliquis and high fall risk. Patient was discharged to rehabilitation in stable condition with Levaquin 4 more days Pt Condition on Discharge: Stable Discharge Disposition: Discharge to SNF Discharge Instructions DIET: Follow Instructions for: As Tolerated, No Restrictions Speech Therapy-Diet Recommends: Soft, [place] Thickened Liquids Activities you can perform: Regular-No Restrictions Follow up Referrals: PCP Follow-up - 1 Week with Bekah Tabares MD New Orders: BLOOD SMEAR MORPH - 1 Month CBC NO DIFF - 1 Month FREE T4 - 1 Month TSH 3RD GEN - 1 Month WESTERGREN SED RATE - 1 Month New Medications: Atorvastatin (Atorvastatin) 40 Mg Tab 40 MG PO HS for Cholesterol Management, #30 TAB 0 Refills Levofloxacin (Levaquin) 750 Mg Tablet 750 MG PO DAILY for Infection, #4 TAB 0 Refills Begin 03/08/17 [guaiFENesin ER] () 600 MG TABCR 600 MG PO BID, #30 TAB Continued Medications: Apixaban (Eliquis) 2.5 Mg Tab 2.5 MG PO BID for 30 Days, #60 TAB Diltiazem CD 24 HR (Cardizem CD 24 HR) 180 Mg Caper 180 MG PO DAILY, #30 CAP Lisinopril (Lisinopril) 10 Mg Tab 10 MG PO DAILY, #30 TAB 11 Refills Metformin ER (Metformin ER) 500 Mg Kaleb 500 MG PO DAILY for Blood Sugar Management, #31 TAB 11 Refills With evening meal Discontinued Medications: Prednisone (Prednisone) 5 Mg Tab 5 MG PO DAILY, TAB 0 Refills Tramadol (Tramadol) 50 Mg Tab 50 MG PO Q6H PRN for PAIN, #20 TAB 0 Refills Kimberly Scherer MD, R3 Mar 07, 2017 14:20
== END 2017-03-07 13:30 | DRG 194 ==
LOC: NEPE 21:30 → NEDA 03-04 01:22 → OBSVTOIN 03-04 04:41 → NEDH 03-04 06:41 → N04B 03-04 13:37
PROVIDERS: ADMIT Family Medicine; ATTEND Family Medicine
DX: J18.9 Pneumonia, unspecified organism (principal); E87.1 Hypo-osmolality and hyponatremia; E11.9 Type 2 diabetes mellitus without complications; I48.0 Paroxysmal atrial fibrillation; I44.7 Left bundle-branch block, unspecified; I10 Essential (primary) hypertension; M19.90 Unspecified osteoarthritis, unspecified site; M35.3 Polymyalgia rheumatica; M81.0 Age-related osteoporosis without current pathological fracture; J02.9 Acute pharyngitis, unspecified; R01.1 Cardiac murmur, unspecified; R74.0 Nonspecific elevation of levels of transaminase and lactic acid dehydrogenase [LDH]; Z85.828 Personal history of other malignant neoplasm of skin; Z79.01 Long term (current) use of anticoagulants; Z79.84 Long term (current) use of oral hypoglycemic drugs
CPT/HCPCS: 70450; 70553; 71045; 71046; 74177; 80048; 80053; 81001; 82140; 82550; 82948; 83605; 83735; 84439; 84443; 84484; 85007; 85025; 85027; 85610; 85730; 87040; 87633; 87804; 93005; 94640; 96365; 96367; A9579; J1815; J2543; J3370; J7030; J7050; Q9967

== ENCOUNTER 2017-03-20 14:42 | Inpatient (IN) | payer MEDICARE, BC ==
[~2017-03-20] VITALS: Ht 152.4 cm; Wt 56.0 kg
[~2017-03-20 14:42] MED LIST changes: +ATOR40TA16 PO; +LEVA750T9 PO; -PRED10 PO; -TRAM50TA PO; +guaiFENesin ER PO
[2017-03-20 15:00] VITALS: BP 133/61; PULSE 80; RESP 16; TEMP 98.2; O2SAT 96
[2017-03-20] MEDS ORDERED: SODIUM CHLORIDE 0.9% FLUSH 10 ML FLUSH IV FLUSH PRN ×2 (16:30→19:30)
[2017-03-20] MEDS ORDERED: SODIUM CHLOR 0.9% 1000 ML INJ 1,000 ML IV SCH (16:30)
[2017-03-20 16:45] VITALS: RESP 16; O2SAT 99
--- NOTE | 2017-03-20 16:54 | PD ---
HPI Chief Complaint: General Weakness Time Seen by Provider: 16:10 Travel History International Travel<30 days: No Contact w/Intl Traveler<30days: No Traveled to known affect area: No History of Present Illness HPI Patient is an 86 old female presented to the emergency for evaluation of generalized weakness. Per her primary physicians report she was concerned for a CVA due to patient being unable to follow commands. Patient presents complaining of right ear pain that is intermittent in nature, not alleviated or exacerbated by anything. She states it sounds like she is in a tunnel. Patient states she feels tired, she reports a decreased appetite. Patient denies any headache, weakness, shortness of breath, chest pain, nausea, vomiting or abdominal pain. She does state that it hurts to swallow food at times. PFSH Past Medical History Atrial Fibrillation: Yes Cancer: Yes Cardiovascular Problems: Yes Diabetes: Yes Hypertension: Yes Immunizations Current: Yes Past Surgical History Other Surgery: Yes (CANCER OF THE NOSE , ) Social History Alcohol Use: No Tobacco Use: No Substance Use: No Allergies-Medications (Allergen,Severity, Reaction): Coded Allergies: No Known Allergies (Verified Allergy, Unknown, 03/20/17) Reported Meds & Prescriptions Reported Meds & Active Scripts Active Atorvastatin (Atorvastatin Calcium) 40 Mg Tab 40 Mg PO HS Eliquis (Apixaban) 2.5 Mg Tab 2.5 Mg PO BID 30 Days Lisinopril 10 Mg Tab 10 Mg PO DAILY Metformin ER (Metformin HCl) 500 Mg Kaleb 500 Mg PO DAILY With evening meal Reported Milk of Magnesia Liq (Magnesium Hydroxide) 400 Mg/5 Ml Susp 30 Ml PO ONCE PRN Novolog Inj (Insulin Aspart) 1,000 Unit/10 Ml Vial 0 SQ BID Sliding Scale as directed. Tylenol (Acetaminophen) 325 Mg Tab 325 Mg PO Q4H PRN Flonase Nasal [place] (Fluticasone Nasal [place]) 50 Mcg/Act [place] 1 [place] EACH NARE BID Duoneb (Ipratropium-Albuterol Neb) 0.5-2.5 Mg/3 Ml Neb 3 Ml NEB Q12HR Mucus Relief ER (Guaifenesin) 600 Mg Tab 600 Mg PO Q12HR Tamiflu (Oseltamivir Phosphate) 75 Mg Cap 75 Mg PO BID 10 Days Bactroban Nasal Oint (Mupirocin Nasal Oint) 2% Oint 1 Applic EACH NARE BID [facility] (Lactobacillus-Inulin) 15 Billion Cell Cap 1 Cap PO DAILY 14 Days Hisjgldp-Lmtirnfuv-HR Otic Drops (Neomycin/Polymyxin/Hydrocortisone) 1 % Soln 2 Drop RIGHT EAR BID 5 Days Lanoxin (Digoxin) 125 Mcg Tablet 125 Mcg PO DAILY AT 7PM Metoprolol Tartrate 25 Mg Tab 25 Mg PO DAILY Fluconazole 100 Mg Tab 100 Mg PO DAILY 5 Days Review of Systems Except as stated in HPI: all other systems reviewed are Neg General / Constitutional: Positive: Other (fatigue), No: Fever, Chills HENT: Positive: Earache, No: Headaches Respiratory: No: Shortness of Breath Gastrointestinal: No: Nausea, Vomiting, Abdominal Pain Neurologic: Positive: Weakness, No: Headache, Change in Mentation Physical Exam Narrative GENERAL: Well-developed, well-nourished, elderly female. Resting in no acute distress. SKIN: Warm and dry. HEAD: Atraumatic. Normocephalic. EYES: Pupils equal and round. No scleral icterus. No injection or drainage. ENT: No nasal bleeding or discharge. Mucous membranes pink and moist. EARS: Bilateral pinnae and external canals appear within normal limits. Bilateral tympanic membranes without erythema, dullness or perforation. NECK: Trachea midline. No JVD. CARDIOVASCULAR: Regular rate and rhythm. 3/6 systolic murmur RESPIRATORY: No accessory muscle use. Clear to auscultation. Breath sounds equal bilaterally. GASTROINTESTINAL: Abdomen soft, non-tender, nondistended. Hepatic and splenic margins not palpable. MUSCULOSKELETAL: Extremities without clubbing, cyanosis, or edema. No obvious deformities. NEUROLOGICAL: Drowsy yet arousable, oriented to self and place and time. No obvious cranial nerve deficits. Motor grossly within normal limits. Five out of 5 muscle strength in the arms and legs. Normal speech. PSYCHIATRIC: Appropriate mood and affect; insight and judgment normal. Data Data Last Documented VS Vital Signs Date Time Temp Pulse Resp B/P (MAP) Pulse Ox O2 Delivery O2 Flow Rate FiO2 03/20/17 18:32 97.8 89 16 170/73 (105) 99 Room Air Orders Orders Electrocardiogram (03/20/17 16:30) Complete Blood Count With Diff (03/20/17 16:30) Comprehensive Metabolic Panel (03/20/17 16:30) Creatine Kinase (Cpk) (03/20/17 16:30) Prothrombin Time / Inr (Pt) (03/20/17 16:30) Act Partial Throm Time (Ptt) (03/20/17 16:30) Urinalysis - C+S If Indicated (03/20/17 16:30) Lactic Acid Sepsis Protocol (03/20/17 16:30) Chest, Single Ap (03/20/17 16:30) Ct Brain W/O Iv Contrast(Rout) (03/20/17 16:30) Blood Glucose (03/20/17 16:30) Ecg Monitoring (03/20/17 16:30) Iv Access Insert/Monitor (03/20/17 16:30) Cath For Specimen (03/20/17 16:30) Oximetry (03/20/17 16:30) Sodium Chloride 0.9% Flush (Ns Flush) (03/20/17 16:30) Sodium Chlor 0.9% 1000 Ml Inj (Ns 1000 M (03/20/17 16:30) Digoxin (03/20/17 16:30) [place] Sedimentation Rate (03/20/17 16:32) Blood Culture (03/20/17 18:44) Group A Rapid Strep Screen (03/20/17 18:44) Admit Order (Ed Use Only) (03/20/17 19:08) Labs Laboratory Tests Test 03/20/17 16:30 03/20/17 16:35 03/20/17 16:41 White Blood Count 24.8 TH/MM3 Red Blood Count 3.30 MIL/MM3 Hemoglobin 10.0 GM/DL Hematocrit 28.0 % Mean Corpuscular Volume 84.7 FL Mean Corpuscular Hemoglobin 30.4 PG Mean Corpuscular Hemoglobin Concent 35.9 % Red Cell Distribution Width 13.4 % Platelet Count 329 TH/MM3 Mean Platelet Volume 8.0 FL Neutrophils (%) (Auto) 80.8 % Lymphocytes (%) (Auto) 10.2 % Monocytes (%) (Auto) 7.0 % Eosinophils (%) (Auto) 1.4 % Basophils (%) (Auto) 0.6 % Neutrophils # (Auto) 20.1 TH/MM3 Lymphocytes # (Auto) 2.5 TH/MM3 Monocytes # (Auto) 1.7 TH/MM3 Eosinophils # (Auto) 0.4 TH/MM3 Basophils # (Auto) 0.1 TH/MM3 CBC Comment DIFF FINAL Differential Comment Erythrocyte Sedimentation Rate GREATER THAN 140 mm/hr Prothrombin Time 12.5 SEC Prothromb Time International Ratio 1.2 RATIO Activated Partial Thromboplast Time 37.0 SEC Blood Urea Nitrogen 11 MG/DL Creatinine 0.64 MG/DL Random Glucose 135 MG/DL Total Protein 6.4 GM/DL Albumin 1.6 GM/DL Calcium Level 8.9 MG/DL Alkaline Phosphatase 150 U/L Aspartate Amino Transf (AST/SGOT) 50 U/L Alanine Aminotransferase (ALT/SGPT) 55 U/L Total Bilirubin 0.5 MG/DL Sodium Level 132 MEQ/L Potassium Level 3.2 MEQ/L Chloride Level 95 MEQ/L Carbon Dioxide Level 28.5 MEQ/L Anion Gap 9 MEQ/L Estimat Glomerular Filtration Rate 88 ML/MIN Total Creatine Kinase 35 U/L Digoxin Level 0.2 NG/ML Lactic Acid Level 1.0 mmol/L Urine Color LIGHT-YELLOW Urine Turbidity CLEAR Urine pH 6.5 Urine Specific [place] 1.005 Urine Protein NEG mg/dL Urine Glucose (UA) NEG mg/dL Urine Ketones NEG mg/dL Urine Occult Blood NEG Urine Nitrite NEG Urine Bilirubin NEG Urine Urobilinogen LESS THAN 2.0 MG/DL Urine Leukocyte Esterase NEG Urine RBC 1 /hpf Urine WBC LESS THAN 1 /hpf Urine Squamous Epithelial Cells <1 /hpf Microscopic Urinalysis Comment CULT NOT INDICATED MDM Medical Decision Making Medical Screen Exam Complete: Yes Emergency Medical Condition: Yes Medical Record Reviewed: Yes Interpretation(s) Vital Signs Date Time Temp Pulse Resp B/P (MAP) Pulse Ox O2 Delivery O2 Flow Rate FiO2 03/20/17 16:57 98.0 76 16 147/67 (93) 99 Room Air 03/20/17 16:45 16 99 Room Air 03/20/17 16:45 16 99 Room Air 03/20/17 15:00 98.2 80 16 133/61 (85) 96 Differential Diagnosis UTI versus metabolic abnormality versus cardiac arrhythmia versus CVA versus TIA versus other Narrative Course Patient is an 86 female that presented to the emergency department for evaluation of possible CVA. Patient has no focal deficits noted on exam, she is drowsy yet arousable and oriented. Patient's vital signs are stable, labs and imaging ordered and pending. EKG shows sinus rhythm with first-degree AV block, heart rate is 70, Appears stable when compared to prior. Chest x-ray which is read by the radiologist shows no acute cardiopulmonary disease. CT scan of the brain which was also read by the radiologist shows no acute intracranial findings. CBC with a white blood cell count of 24.8 with left shift. This is elevated when compared to prior results on 03/16/17 her white blood cell count was 20.9 at that time. Lactic acid is 1.0 Chemistry with a sodium of 132, potassium 3.2, albumin 1.6 Digoxin 0.2 Urinalysis is unremarkable Discussed results with Dr. Dubon, she requested that patient be cultured and admitted under observation. Orders placed. Discussed with Dr. Ellison who accepted admission. Admitting orders place. Additionally discussed with my attending physician who is in agreement with plan. Diagnosis Primary Impression: Altered mental status Qualified Codes: R41.82 - Altered mental status, unspecified Additional Impressions: Leukocytosis Qualified Codes: D72.829 - Elevated white blood cell count, unspecified Hypokalemia Admitting Information Admitting Physician Requests: Observation Condition: Stable Janel Cline Mar 20, 2017 16:54
[2017-03-20 16:57] VITALS: BP 147/67; PULSE 76; RESP 16; TEMP 98; O2SAT 99
--- NOTE | 2017-03-20 16:57 | RADRPT ---
EXAM DATE/TIME: 03/20/2017 16:42 [facility] COMPARISON: CHEST SINGLE AP, March 03, 2017, 21:56. INDICATIONS : Syncopal episode. MEDICAL HISTORY : Hypertension. Diabetes mellitus type 2. SURGICAL HISTORY : None. ENCOUNTER: Initial ACUITY: 1 day PAIN SCORE: Non-responsive. LOCATION: Bilateral chest FINDINGS: Single AP view of the chest. The lungs are clear. Cardiomediastinal silhouette within normal limits. No evidence of pleural effusion or pneumothorax. CONCLUSION: No acute cardiopulmonary disease identified. Gianni Lowe MD on March 20, 2017 at 16:54 Board Certified Radiologist. This report was verified electronically.
[2017-03-20 17:08] LABS: INTERNATIONAL NORMALIZED RATIO 1.2 RATIO; PROTHROMBIN TIME - PATIENT 12.5 SEC (9.8-11.6)
[2017-03-20 17:26] LABS: ALBUMIN 1.6 GM/DL (3.4-5.0); AST (GOT) 50 U/L (15-37); BICARBONATE 28.5 MEQ/L (21.0-32.0); BLOOD UREA NITROGEN 11 MG/DL (7-18); CALCIUM 8.9 MG/DL (8.5-10.1); CHLORIDE 95 MEQ/L (98-107); CREATININE 0.64 MG/DL (0.50-1.00); GLOMERULAR FILTRATION RATE 88 ML/MIN (>89); GLUCOSE,RANDOM 135 MG/DL (74-106); SODIUM (NA) 132 MEQ/L (136-145)
[2017-03-20 17:27] LABS: ALT (GPT) 55 U/L (10-53)
[2017-03-20 17:30] LABS: BILIRUBIN, URINE NEG (NEG); BLOOD, URINE NEG (NEG); GLUCOSE,URINE NEG (NEG); KETONE, URINE NEG (NEG); NITRITE,URINE NEG (NEG); PH, URINE 6.5 (5.0-8.5); SQUAMOUS EPITHELIAL CELL URINE <1 /hpf (0-5); URINE COLOR LIGHT-YELLOW (YELLW/STRAW); URINE LEUKOCYTE ESTERASE NEG (NEG)
--- NOTE | 2017-03-20 17:31 | RADRPT ---
EXAM DATE/TIME: 03/20/2017 17:12 [facility] COMPARISON: CT BRAIN W/O CONTRAST, March 03, 2017, 22:39. INDICATIONS : Right ear pain for two days. RADIATION DOSE: 56.35 CTDIvol (mGy) MEDICAL HISTORY : Hypertension. Diabetes mellitus type 2. Cardiovascular diseaseSkin cancer. SURGICAL HISTORY : None. ENCOUNTER: Initial ACUITY: 1 day PAIN SCALE: 6/10 LOCATION: Right cranial TECHNIQUE: Multiple contiguous axial images were obtained of the head. Using automated exposure control and adj ustment of the mA and/or kV according to patient size, radiation dose was kept as low as reasonably a chievable to obtain optimal diagnostic quality images. DICOM format image data is available electro nically for review and comparison. FINDINGS: CEREBRUM: The ventricles are normal for age. No evidence of midline shift, mass lesion, hemorrhage or acute in farction. No extra-axial fluid collections are seen. POSTERIOR FOSSA: The cerebellum and brainstem are intact. The 4th ventricle is midline. The cerebellopontine angle i s unremarkable. EXTRACRANIAL: Mild partial opacification at. SKULL: The calvaria is intact. No evidence of skull fracture. CONCLUSION: No acute intracranial findings. Gianni Lowe MD on March 20, 2017 at 17:27 Board Certified Radiologist. This report was verified electronically.
[2017-03-20 17:33] LABS: AUTOMATED NEUTROPHIL # 20.1 TH/MM3 (1.8-7.7); BASOPHIL # 0.1 TH/MM3 (0-0.2); BASOPHIL % 0.6 % (0.0-2.0); EOSINOPHIL # 0.4 TH/MM3 (0-0.4); EOSINOPHIL % 1.4 % (0.0-4.0); LYMPH % 10.2 % (9.0-44.0); LYMPHOCYTE # 2.5 TH/MM3 (1.0-4.8); MEAN CELL VOLUME 84.7 FL (80.0-100.0); MEAN CORPUSCULAR HEMOGLOBIN 30.4 PG (27.0-34.0); MEAN CORPUSCULAR HGB CONC 35.9 % (32.0-36.0); MONOCYTE # 1.7 TH/MM3 (0-0.9); NEUT % 80.8 % (16.0-70.0); PLATELET COUNT 329 TH/MM3 (150-450); RED CELL DISTRIBUTION WIDTH 13.4 % (11.6-17.2); WHITE BLOOD COUNT 24.8 TH/MM3 (4.0-11.0)
[2017-03-20 17:41] LABS: ALKALINE PHOSPHATASE 150 U/L (45-117); DIGOXIN 0.2 NG/ML (0.8-2.0); TOTAL BILIRUBIN ADULT 0.5 MG/DL (0.2-1.0); TOTAL PROTEIN 6.4 GM/DL (6.4-8.2)
[2017-03-20] MEDS ORDERED: FLUC100T2 PO (18:26)
[2017-03-20] MEDS ORDERED: CULT10CA2 PO (18:26)
[2017-03-20] MEDS ORDERED: TYLE325T PO (18:26)
[2017-03-20] MEDS ORDERED: FLUT1SPR5 EACH NARE (18:26)
[2017-03-20] MEDS ORDERED: MILKSUS PO (18:26)
[2017-03-20] MEDS ORDERED: LANO0.12 PO (18:26)
[2017-03-20] MEDS ORDERED: CORTI10A RIGHT EAR (18:26)
[2017-03-20] MEDS ORDERED: METO25TA3 PO (18:26)
[2017-03-20] MEDS ORDERED: GUAI600T11 PO (18:26)
[2017-03-20] MEDS ORDERED: BACTOIN EACH NARE (18:26)
[2017-03-20] MEDS ORDERED: IPRASOL NEB (18:26)
[2017-03-20] MEDS ORDERED: OSEL75 PO (18:26)
[2017-03-20] MEDS ORDERED: NOVOLOGP2 SQ (18:26)
[2017-03-20 18:32] VITALS: BP 170/73; PULSE 89; RESP 16; TEMP 97.8; O2SAT 99
[2017-03-20] MEDS ORDERED: ACETAMINOPHEN 325 MG TAB PO PRN (19:30)
[2017-03-20] MEDS ORDERED: POTASSIUM CHLORIDE 10 MEQ CONTROLLED RELEASE TAB PO ONE (19:30)
[2017-03-20] MEDS ORDERED: GLUCAGON 1 MG/ML VIAL OTHER PRN (19:30)
[2017-03-20] MEDS ORDERED: DEXTROSE 50% IN WATER 50 ML VIAL(D50) IV PUSH PRN (19:30)
[2017-03-20] MEDS ORDERED: ONDANSETRON HCL 4 MG/2 ML VIAL IVP PRN (19:30)
[2017-03-20 20:43] VITALS: BP 155/72; PULSE 93; RESP 17; TEMP 98; O2SAT 97
--- NOTE | 2017-03-20 20:55 | HHI.HP ---
[facility] Julia Dubon, DO Admission Diagnosis LEUKOCYTOSIS, GEN. WEAKNESS Diagnoses: Travel History International Travel<30 Days: No Contact w/Intl Traveler <30 Da: No Traveled to Known Affected Are: No History of Present Illness 86-year-old female sent by Dr. Dubon from her assisted living facility [facility] for evaluation of generalized weakness. Her primary physician was concerned for a CVA due to the patient being unable to follow commands. This was a new symptom for her. The patient's daughter reports that the patient has had waxing and waning confusion. Symptoms started approximately 2 weeks ago when an MRI revealed a small CVA. In discussion with the patient, she complains of right ear pain and a sore throat. Her daughter is bedside who states that her physician was also concerned because she had a bradycardic episode on Friday for which her diltiazem was held and she then went into A. fib with RVR on Friday. The patient's primary physician was also concerned with a leukocytosis that has been persistent. The patient denies any fever/chills. No dysuria. Denies cough or shortness of breath. No chest pain. Review of Systems Except as stated in HPI: all other systems reviewed are Neg Past Family Social History Past Medical History Hypertension Diabetes mellitus Atrial fibrillation anticoagulated on all her questions Hyperlipidemia History of CVA 2 weeks ago Past Surgical History Skin cancer removal with skin graft and flap on left nose Reported Medications Reported Meds & Active Scripts Active Atorvastatin (Atorvastatin Calcium) 40 Mg Tab 40 Mg PO HS Eliquis (Apixaban) 2.5 Mg Tab 2.5 Mg PO BID 30 Days Lisinopril 10 Mg Tab 10 Mg PO DAILY Metformin ER (Metformin HCl) 500 Mg Kaleb 500 Mg PO DAILY With evening meal Reported Milk of Magnesia Liq (Magnesium Hydroxide) 400 Mg/5 Ml Susp 30 Ml PO ONCE PRN Novolog Inj (Insulin Aspart) 1,000 Unit/10 Ml Vial 0 SQ BID Sliding Scale as directed. Tylenol (Acetaminophen) 325 Mg Tab 325 Mg PO Q4H PRN Flonase Nasal [place] (Fluticasone Nasal [place]) 50 Mcg/Act [place] 1 [place] EACH NARE BID Duoneb (Ipratropium-Albuterol Neb) 0.5-2.5 Mg/3 Ml Neb 3 Ml NEB Q12HR Mucus Relief ER (Guaifenesin) 600 Mg Tab 600 Mg PO Q12HR Tamiflu (Oseltamivir Phosphate) 75 Mg Cap 75 Mg PO BID 10 Days Bactroban Nasal Oint (Mupirocin Nasal Oint) 2% Oint 1 Applic EACH NARE BID [facility] (Lactobacillus-Inulin) 15 Billion Cell Cap 1 Cap PO DAILY 14 Days Drwinuzl-Couhkbdqv-MG Otic Drops (Neomycin/Polymyxin/Hydrocortisone) 1 % Soln 2 Drop RIGHT EAR BID 5 Days Lanoxin (Digoxin) 125 Mcg Tablet 125 Mcg PO DAILY AT 7PM Metoprolol Tartrate 25 Mg Tab 25 Mg PO DAILY Fluconazole 100 Mg Tab 100 Mg PO DAILY 5 Days Allergies: Coded Allergies: No Known Allergies (Verified Allergy, Unknown, 03/20/17) Family History Mother with diabetes mellitus Social History Denies alcohol, tobacco and illicit drugs Physical Exam Vital Signs Vital Signs Date Time Temp Pulse Resp B/P (MAP) Pulse Ox O2 Delivery O2 Flow Rate FiO2 03/20/17 20:43 98.0 93 17 155/72 (99) 97 03/20/17 20:27 03/20/17 18:32 97.8 89 16 170/73 (105) 99 Room Air 03/20/17 16:57 98.0 76 16 147/67 (93) 99 Room Air 03/20/17 16:45 16 99 Room Air 03/20/17 16:45 16 99 Room Air 03/20/17 15:00 98.2 80 16 133/61 (85) 96 Physical Exam GENERAL: Elderly, female lying in bed SKIN: No rashes, ecchymoses or lesions. Cool and dry. HEAD: Atraumatic. Normocephalic. No temporal or scalp tenderness. EYES: Pupils equal round and reactive. Extraocular motions intact. No scleral icterus. No injection or drainage. ENT: Nose without bleeding, purulent drainage or septal hematoma. Throat without erythema, tonsillar hypertrophy or exudate. Uvula midline. Airway patent. Bilateral tympanic membranes visualized without erythema or surrounding fluid. NECK: Trachea midline. No JVD or lymphadenopathy. Supple, nontender, no meningeal signs. CARDIOVASCULAR: Regular rate and rhythm without murmurs, gallops, or rubs. RESPIRATORY: Clear to auscultation. Breath sounds equal bilaterally. No wheezes , rales, or rhonchi. GASTROINTESTINAL: Abdomen soft, non-tender, nondistended. No hepato-splenomegaly , or palpable masses. No guarding. MUSCULOSKELETAL: Extremities without clubbing, cyanosis, or edema. No joint tenderness, effusion, or edema noted. No calf tenderness. NEUROLOGICAL: Awake and alert. Cranial nerves II through XII intact. Motor and sensory grossly within normal limits. Five out of 5 muscle strength in all muscle groups. Normal speech. Oriented to date and people. Believes she is in [place], [place]. Laboratory Laboratory Tests Test 03/20/17 16:30 03/20/17 16:35 03/20/17 16:41 White Blood Count 24.8 Red Blood Count 3.30 Hemoglobin 10.0 Hematocrit 28.0 Mean Corpuscular Volume 84.7 Mean Corpuscular Hemoglobin 30.4 Mean Corpuscular Hemoglobin Concent 35.9 Red Cell Distribution Width 13.4 Platelet Count 329 Mean Platelet Volume 8.0 Neutrophils (%) (Auto) 80.8 Lymphocytes (%) (Auto) 10.2 Monocytes (%) (Auto) 7.0 Eosinophils (%) (Auto) 1.4 Basophils (%) (Auto) 0.6 Neutrophils # (Auto) 20.1 Lymphocytes # (Auto) 2.5 Monocytes # (Auto) 1.7 Eosinophils # (Auto) 0.4 Basophils # (Auto) 0.1 CBC Comment DIFF FINAL Differential Comment Erythrocyte Sedimentation Rate GREATER THAN 140 Prothrombin Time 12.5 Prothromb Time International Ratio 1.2 Activated Partial Thromboplast Time 37.0 Blood Urea Nitrogen 11 Creatinine 0.64 Random Glucose 135 Total Protein 6.4 Albumin 1.6 Calcium Level 8.9 Alkaline Phosphatase 150 Aspartate Amino Transf (AST/SGOT) 50 Alanine Aminotransferase (ALT/SGPT) 55 Total Bilirubin 0.5 Sodium Level 132 Potassium Level 3.2 Chloride Level 95 Carbon Dioxide Level 28.5 Anion Gap 9 Estimat Glomerular Filtration Rate 88 Total Creatine Kinase 35 Digoxin Level 0.2 Lactic Acid Level 1.0 Urine Color LIGHT-YELLOW Urine Turbidity CLEAR Urine pH 6.5 Urine Specific Will[place] 1.005 Urine Protein NEG Urine Glucose (UA) NEG Urine Ketones NEG Urine Occult Blood NEG Urine Nitrite NEG Urine Bilirubin NEG Urine Urobilinogen LESS THAN 2.0 Urine Leukocyte Esterase NEG Urine RBC 1 Urine WBC LESS THAN 1 Urine Squamous Epithelial Cells <1 Microscopic Urinalysis Comment CULT NOT INDICATED Date/Time Source Procedure Growth Status 03/20/17 18:51 Blood Peripheral Aerobic Blood Culture Pending Received 03/20/17 18:51 Blood Peripheral Anaerobic Blood Culture Pending Received 03/20/17 18:51 Throat Group A Streptococcus Screen Pending Received Result Diagram: 03/20/17 1630 03/20/17 1630 Caprini VTE Risk Assessment Caprini VTE Risk Assessment: Mod/High Risk (score >= 2) Caprini Risk Assessment Model Point Value = 1 Point Value = 2 Point Value = 3 Point Value = 5 Age 41-60 Minor surgery BMI > 25 kg/m2 Swollen legs Varicose veins or History of unexplained or recurrent spontaneous Oral contraceptives or hormone replacement Sepsis (< 1 month) Serious lung disease, including pneumonia (< 1 month) Abnormal pulmonary function Acute myocardial infarction Congestive heart failure (< 1 month) History of inflammatory bowel disease Medical patient at bed rest Age 61-74 Arthroscopic surgery Major open surgery (> 45 min) Laparoscopic surgery (> 45 min) Malignancy Confined to bed (> 72 hours) Immobilizing plaster cast Central venous access Age >= 75 History of VTE Family history of VTE Factor V Leiden Prothrombin [id number] Lupus anticoagulant Anticardiolipin antibodies Elevated serum homocysteine Heparin-induced thrombocytopenia Other congenital or acquired thrombophilia Stroke (< 1 month) Elective arthroplasty Hip, pelvis, or leg fracture Acute spinal cord injury (< 1 month) Prophylaxis Regimen Total Risk Factor Score Risk Level Prophylaxis Regimen 0-1 Low Early ambulation 2 Moderate Order ONE of the following: *Sequential Compression Device (SCD) *Heparin 5000 units SQ BID 3-4 Higher Order ONE of the following medications: *Heparin 5000 units SQ TID *Enoxaparin/Lovenox 40 mg SQ daily (WT < 150 kg, CrCl > 30 mL/min) *Enoxaparin/Lovenox 30 mg SQ daily (WT < 150 kg, CrCl > 10-29 mL/min) *Enoxaparin/Lovenox 30 mg SQ BID (WT < 150 kg, CrCl > 30 mL/min) AND/OR *Sequential Compression Device (SCD) 5 or more Highest Order ONE of the following medications: *Heparin 5000 units SQ TID (Preferred with Epidurals) *Enoxaparin/Lovenox 40 mg SQ daily (WT < 150 kg, CrCl > 30 mL/min) *Enoxaparin/Lovenox 30 mg SQ daily (WT < 150 kg, CrCl > 10-29 mL/min) *Enoxaparin/Lovenox 30 mg SQ BID (WT < 150 kg, CrCl > 30 mL/min) AND *Sequential Compression Device (SCD) Assessment and Plan Assessment and Plan Assessment/plan: 1. Altered mental status Has been waxing/waning for past [address] negative for acute intracranial process MRI done on 03/06/17 showed possible tiny infarct with cerebral atrophy and chronic ischemic small vessel vasculopathy Unclear etiology, may be underlying component of dementia 2. Leukocytosis Unclear etiology - has been persistent since 03/16/17 UA within normal limits Chest x-ray without acute cardiopulmonary disease, images reviewed by me Patient denies fever/chills; endorses sore throat - no erythema, purulent drainage or signs of infection Blood culture pending Strep culture pending 3. Transaminitis Patient with mild transaminitis AST/ALT/alkaline phosphatase 50/55/150 Hepatitis profile pending 4. Atrial fibrillation Continue anticoagulation without gross Continue metoprolol 5. Diabetes mellitus Sliding scale insulin Monitor blood glucose 6. Hypertension/Hyperlipidemia Continue home medications 7. Yeast infection Patient recently diagnosed with yeast infection at her INTERMEDIATE Continue home Diflucan FEN Heart healthy diet Electrolytes: Status post repletion of by mouth potassium, monitor BMP Eliquis Physical therapy consulted Case management consulted to assist in discharge planning Amaris Ellison MD Mar 20, 2017 20:55
[2017-03-20] MEDS: INSULIN ASPART SUPPLEMENTAL SCALE SQ SCH (21:00)
[2017-03-20] MEDS: guaiFENesin E.R. 600 MG TAB PO SCH (21:02)
[2017-03-20] MEDS: ATORVASTATIN 40 MG TAB PO SCH (21:03)
[2017-03-20] MEDS: SODIUM CHLORIDE 0.9% FLUSH 10 ML FLUSH IV FLUSH SCH (21:03)
[2017-03-20] MEDS: DIGOXIN 0.125 MG TAB PO SCH (21:03)
[2017-03-20] MEDS: NEOMYCIN/POLYMYXIN/HYDROCORT OTIC SOLN 10 ML BTL RIGHT EAR SCH (22:54)
[2017-03-20] MEDS: FLUTICASONE PROPIONATE 50 MCG/ACT 16 GM NASAL SPRAY EACH NARE SCH (22:54)
[2017-03-20] MEDS: APIXABAN 2.5 MG TABLET PO SCH (22:54)
[2017-03-20 23:27] LABS: MAGNESIUM 1.6 MG/DL (1.5-2.5)
[2017-03-21] VITALS (13 sets, daily range): BP systolic 135–202; BP diastolic 67–85; PULSE 76–112; RESP 16–18; TEMP 97.4–99.1; O2SAT 93–97
[2017-03-21 07:38] LABS: BASOPHIL # 0.1 TH/MM3 (0-0.2); BASOPHIL % 0.4 % (0.0-2.0); EOSINOPHIL % 0.1 % (0.0-4.0); HEMATOCRIT 30.3 % (35.0-46.0); HEMOGLOBIN 10.3 GM/DL (11.6-15.3); LYMPH % 5.8 % (9.0-44.0); LYMPHOCYTE # 1.5 TH/MM3 (1.0-4.8); MEAN CELL VOLUME 85.2 FL (80.0-100.0); MEAN CORPUSCULAR HEMOGLOBIN 28.8 PG (27.0-34.0); MEAN CORPUSCULAR HGB CONC 33.8 % (32.0-36.0); MEAN PLATELET VOLUME 7.9 FL (7.0-11.0); MONOCYTE # 1.6 TH/MM3 (0-0.9); NEUT % 87.7 % (16.0-70.0); PLATELET COUNT 362 TH/MM3 (150-450); RED BLOOD COUNT 3.56 MIL/MM3 (4.00-5.30); RED CELL DISTRIBUTION WIDTH 13.5 % (11.6-17.2); WHITE BLOOD COUNT 26.3 TH/MM3 (4.0-11.0)
[2017-03-21] MEDS: RESP: ALBUTEROL 2.5 MG/IPRATROPIUM 0.5 MG NEB (SCH) NEB ×2 (07:42→19:31)
[2017-03-21 08:42] LABS: ALBUMIN 1.7 GM/DL (3.4-5.0); ALKALINE PHOSPHATASE 151 U/L (45-117); ALT (GPT) 43 U/L (10-53); AST (GOT) 28 U/L (15-37); BICARBONATE 27.4 MEQ/L (21.0-32.0); BLOOD UREA NITROGEN 10 MG/DL (7-18); CALCIUM 8.8 MG/DL (8.5-10.1); CHLORIDE 103 MEQ/L (98-107); CREATININE 0.58 MG/DL (0.50-1.00); GLOMERULAR FILTRATION RATE 99 ML/MIN (>89); GLUCOSE,RANDOM 169 MG/DL (74-106); SODIUM (NA) 138 MEQ/L (136-145); TOTAL BILIRUBIN ADULT 0.5 MG/DL (0.2-1.0); TOTAL PROTEIN 6.6 GM/DL (6.4-8.2)
--- NOTE | 2017-03-21 09:59 | EKG ---
Date Performed: 03/20/2017 Time Performed: 16:48:47 PTAGE: 86 years EKG: Sinus rhythm WITH FIRST DEGREE AV BLOCK LEFT BUNDLE BRANCH BLOCK ABNORMAL ECG PREVIOUS TRACING : 03/03/2017 22.28 No change from previous tracing noted. DOCTOR: Eric Ennis Interpretating Date/Time 03/21/2017 09:57:42
[2017-03-21] MEDS ORDERED: LORazepam 2 MG/ML VIAL IV PUSH PRN (10:00)
[2017-03-21] MEDS: INSULIN ASPART SUPPLEMENTAL SCALE SQ SCH ×4 (10:13→21:51)
[2017-03-21] MEDS: NEOMYCIN/POLYMYXIN/HYDROCORT OTIC SOLN 10 ML BTL RIGHT EAR SCH ×2 (10:13→21:43)
[2017-03-21] MEDS: FLUTICASONE PROPIONATE 50 MCG/ACT 16 GM NASAL SPRAY EACH NARE SCH ×2 (10:14→21:44)
[2017-03-21] MEDS: LACTOBACILLUS ACIDOPHILUS TAB PO SCH (10:16)
[2017-03-21] MEDS: guaiFENesin E.R. 600 MG TAB PO SCH ×2 (10:16→21:43)
[2017-03-21] MEDS: APIXABAN 2.5 MG TABLET PO SCH ×2 (10:16→21:43)
[2017-03-21] MEDS: FLUCONAZOLE 100 MG TAB PO SCH (10:17)
[2017-03-21] MEDS: METOPROLOL TARTRATE 25 MG TAB PO SCH (10:17)
[2017-03-21] MEDS: SODIUM CHLORIDE 0.9% FLUSH 10 ML FLUSH IV FLUSH SCH ×2 (10:19→21:43)
[2017-03-21] MEDS: LISINOPRIL 10 MG TAB PO SCH (10:19)
--- NOTE | 2017-03-21 11:34 | HHI.PR ---
Subjective Remarks Follow-up encephalopathy. She is awake oriented to person only. She is confused following simple commands. Objective Vitals Vital Signs Date Time Temp Pulse Resp B/P (MAP) Pulse Ox O2 Delivery O2 Flow Rate FiO2 03/21/17 10:55 98.2 76 18 198/84 (122) 95 03/21/17 07:47 93 21 03/21/17 07:32 97.4 99 18 174/73 (106) 97 03/21/17 03:24 98.9 108 17 136/69 (91) 96 03/21/17 00:10 98.2 111 16 160/71 (100) 97 03/21/17 00:00 97 03/20/17 20:43 98.0 93 17 155/72 (99) 97 03/20/17 20:27 03/20/17 18:32 97.8 89 16 170/73 (105) 99 Room Air 03/20/17 16:57 98.0 76 16 147/67 (93) 99 Room Air 03/20/17 16:45 16 99 Room Air 03/20/17 16:45 16 99 Room Air 03/20/17 15:00 98.2 80 16 133/61 (85) 96 I/O 03/20/17 03/20/17 03/20/17 03/21/17 03/21/17 03/21/17 07:00 15:00 23:00 07:00 15:00 23:00 Intake Total 1000 ml 240 ml Balance 1000 ml 240 ml Intake Oral 240 ml IV Total 1000 ml Result Diagram: 03/21/17 0558 03/21/17 0558 Imaging Last Impressions Head CT 03/20/17 1630 Signed Impressions: Service Date/Time: February 17:12 - CONCLUSION: No acute intracranial findings. Gianni Lowe MD Chest X-Ray 03/20/17 1630 Signed Impressions: Service Date/Time: February 16:42 - CONCLUSION: No acute cardiopulmonary disease identified. Gianni Lowe MD Objective Remarks GENERAL: Elderly, female lying in bed SKIN: No rashes, ecchymoses or lesions. Cool and dry. NECK: Trachea midline. No JVD or lymphadenopathy. Supple, nontender, no meningeal signs. CARDIOVASCULAR: Regular rate and rhythm without murmurs, gallops, or rubs. RESPIRATORY: Clear to auscultation. Breath sounds equal bilaterally. No wheezes , rales, or rhonchi. GASTROINTESTINAL: Abdomen soft, non-tender, nondistended. No guarding. MUSCULOSKELETAL: Extremities without clubbing, cyanosis, or edema. No joint tenderness, effusion, or edema noted. No calf tenderness. NEUROLOGICAL: Awake and alert. Cranial nerves II through XII intact. Motor and sensory grossly within normal limits. Five out of 5 muscle strength in all muscle groups. Normal speech. Oriented to person only A/P Problem List: (1) Altered mental status ICD Code: R41.82 - Altered mental status, unspecified (2) Leukocytosis ICD Code: D72.829 - Elevated white blood cell count, unspecified Status: Acute Assessment and Plan 1. Encephalopathy Has been waxing/waning for past [address] negative for acute intracranial process MRI done on 03/06/17 showed possible tiny infarct with cerebral atrophy and chronic ischemic small vessel vasculopathy Unclear etiology, may be underlying component of dementia Obtain EEG and I was informed it is abnormal we'll consult neurology. Seizure precautions. Ativan as needed. 2. Leukocytosis Unclear etiology - has been persistent since 03/16/17 UA within normal limits Chest x-ray without acute cardiopulmonary disease, images reviewed by me Patient denies fever/chills; endorses sore throat - no erythema, purulent drainage or signs of infection Blood culture pending Strep culture negative so far Obtain C. difficile May need lumbar puncture, patient on Eliquis 3. Transaminitis. Improving Patient with mild transaminitis AST/ALT/alkaline phosphatase 50/55/150 Hepatitis profile negative 4. Atrial fibrillation Continue anticoagulation with Eliquis Continue metoprolol 5. Diabetes mellitus Sliding scale insulin Monitor blood glucose 6. Hypertension/Hyperlipidemia LDL 64. Uncontrolled BP Continue home medications. Clonidine as needed 7. Yeast infection Patient recently diagnosed with yeast infection at her [facility] Continue home Diflucan FEN Heart healthy diet Electrolytes: Status post repletion of by mouth potassium, monitor BMP Eliquis Problem Qualifiers (1) Altered mental status: Qualified Codes: R41.82 - Altered mental status, unspecified (2) Leukocytosis: Qualified Codes: D72.829 - Elevated white blood cell count, unspecified Alirio Hill MD Mar 21, 2017 11:34
[2017-03-21 13:14] LABS: HEPATITIS A AB IGM NEGATIVE (NEGATIVE); HEPATITIS B CORE AB IGM NEGATIVE (NEGATIVE); HEPATITIS B SURFACE ANTIGEN NEGATIVE (NEGATIVE); HEPATITIS C AB IgG NEGATIVE (NEGATIVE)
[2017-03-21] MEDS ORDERED: cloNIDine HCL 0.1 MG TAB PO PRN (17:00)
[2017-03-21] MEDS ORDERED: PILL SPLITTER OTHER PRN (18:00)
[2017-03-21] MEDS: metFORMIN HCL 500 MG TAB PO SCH (18:21)
--- NOTE | 2017-03-21 19:28 | MB ---
cc: RICKEY DELGADILLO MD DATE OF CONSULTATION 03/21/17 An 86-year-old seen in neurological consultation. There is a description of abnormal EEG, but I was unable to locate this report. I spoke to the daughter. The daughter provides history that since February 24 the patient has been either in the hospital or in the nursing facility. She has been back and forth on a couple of occasions. 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 No apparent significant confusion before. She is now confused. She has had some incontinence, some new atrial fibrillation recently and an MRI brain on March 06 showed a possible tiny right parietal infarct. After that, she was apparently treated with blood thinners and sent to the nursing facility, but has been back and forth in the hospital as discussed. There is a history of hypertension, diabetes, hyperlipidemia. MEDICATIONS 1. Eliquis 2.5 twice a day. 2. Atorvastatin. 3. Lisinopril. 4. Metformin. NEUROLOGIC EXAM On exam, the patient was awake and she was initially pleasant but obviously confused, often does not respond to the questions. At some point, she was able to recognized family members, but she really did not stay on target and ended up changing the subject of the conversation. She was quiet and she followed simple tasks appropriately, moved all four extremities well. No obvious lateralizing features, no hemiparesis. The visual quiroz appear to be full. Pupils about the same size reactive. No facial symmetry. Reflexes were diminished but present at the knees and even present at the ankles. Plantar responses were flexor. IMAGING STUDIES The CT brain yesterday showed no acute abnormality. LABORATORY DATA White count is 24.8 yesterday and 26.3. Hemoglobin 10.0, platelets 329. Sodium 132, potassium 3.2, glucose 135, BUN and creatinine normal. AST and ALT mildly elevated yesterday but improved today. ASSESSMENT 1. Subacute encephalopathy. 2. Possible tiny stroke right parietal on an MRI on March 06. 3. Leukocytosis, undetermined cause. 4. Recent atrial fibrillation. 5. Hypertension 6. Diabetes. RECOMMENDATION Continue her Eliquis and I am going to see if the EEG was done and locate the report. Otherwise, I will be reading this EEG. I am going to request an MRI brain for followup. I am checking to see if she has had at least a carotid ultrasound and I will request one because it is not in her records here. I will also check additional labs on her, specifically a B12 level. Thank you for asking us to assist in her care. MD YOVANA Blanchard/ /3:07 PM /7:10 PM
--- NOTE | 2017-03-21 20:28 | RADRPT ---
EXAM DATE/TIME: 03/21/2017 18:31 [place] COMPARISON: No previous studies available for comparison. INDICATIONS : CVA. Unable to follow commands. MEDICAL HISTORY : Hypertension. Diabetes mellitus type 2. SURGICAL HISTORY : None. ENCOUNTER: Initial ACUITY: 1 day PAIN SCORE: 0/10 LOCATION: cranial TECHNIQUE: Multiplanar, multisequence MRI of the brain was performed without contrast. FINDINGS: CEREBRUM: The ventricles are normal for age. No evidence of midline shift, mass lesion, hemorrhage or acute in farction. No extraaxial fluid collections are seen. The pituitary gland and suprasellar cistern are normal in configuration. WHITE MATTER: Mild signal abnormalities are seen in the white matter. POSTERIOR FOSSA: The cerebellum and brainstem are intact. The 4th ventricle is midline. The cerebellopontine angle is unremarkable. The cerebellar tonsils are normal in position. DIFFUSION IMAGING: No focal areas of restricted diffusion are seen. No evidence of acute infarction. EXTRACRANIAL: The visualized portions of the orbits and paranasal sinuses are unremarkable. CONCLUSION: 1. No acute findings. Mild white matter signal abnormalities. No recent infarct. Mucosal thickening i n the mastoid air cells. Yvon Zhang MD on March 21, 2017 at 20:23 Board Certified Radiologist. This report was verified electronically.
[2017-03-21] MEDS: DIGOXIN 0.125 MG TAB PO SCH (21:42)
[2017-03-21] MEDS: ATORVASTATIN 40 MG TAB PO SCH (21:43)
[2017-03-22] VITALS (13 sets, daily range): BP systolic 130–180; BP diastolic 60–79; PULSE 92–113; RESP 16–18; TEMP 98–100.2; O2SAT 92–96
[2017-03-22 07:07] LABS: AUTOMATED NEUTROPHIL # 19.9 TH/MM3 (1.8-7.7); BASOPHIL # 0.2 TH/MM3 (0-0.2); BASOPHIL % 0.7 % (0.0-2.0); EOSINOPHIL # 0.1 TH/MM3 (0-0.4); EOSINOPHIL % 0.6 % (0.0-4.0); HEMOGLOBIN 10.1 GM/DL (11.6-15.3); LYMPH % 8.8 % (9.0-44.0); LYMPHOCYTE # 2.1 TH/MM3 (1.0-4.8); MEAN CELL VOLUME 84.5 FL (80.0-100.0); MEAN CORPUSCULAR HEMOGLOBIN 29.3 PG (27.0-34.0); MEAN CORPUSCULAR HGB CONC 34.7 % (32.0-36.0); MEAN PLATELET VOLUME 7.6 FL (7.0-11.0); MONO % 7.3 % (0.0-8.0); MONOCYTE # 1.8 TH/MM3 (0-0.9); NEUT % 82.6 % (16.0-70.0); PLATELET COUNT 413 TH/MM3 (150-450); RED BLOOD COUNT 3.43 MIL/MM3 (4.00-5.30); RED CELL DISTRIBUTION WIDTH 13.5 % (11.6-17.2); WHITE BLOOD COUNT 24.1 TH/MM3 (4.0-11.0)
[2017-03-22 07:36] LABS: BICARBONATE 27.7 MEQ/L (21.0-32.0); CALCIUM 9.1 MG/DL (8.5-10.1); CREATININE 0.62 MG/DL (0.50-1.00); MAGNESIUM 1.6 MG/DL (1.5-2.5)
--- NOTE | 2017-03-22 07:39 | HHI.PR ---
Review/Management Daily Summary 03/22 intt confusion over night per RN asleep this am data reviewed esr very high undetermined dx would ask for temporal artery bx through gen surgery also consider hemo eval for persistent leukocytosis Subjective Subjective Comments No acute events reported Active Medications Current Medications Medications (Trade) Dose Ordered Sig/Janna Route Start Time Stop Time Status Last Admin (NS Flush) 2 ml UNSCH PRN IV FLUSH 03/20/17 19:30 (NS Flush) 2 ml BID IV FLUSH 03/20/17 21:00 03/21/17 21:43 (Tylenol) 650 mg Q4H PRN PO 03/20/17 19:30 (Zofran Inj) 4 mg Q6H PRN IVP 03/20/17 19:30 (D50w (Vial) Inj) 50 ml UNSCH PRN IV PUSH 03/20/17 19:30 (Glucagon Inj) 1 mg UNSCH PRN OTHER 03/20/17 19:30 (NovoLOG SUPPLEMENTAL SCALE) 1 ACHS SLIDING SCALE SQ 03/20/17 21:00 03/21/17 21:51 (Eliquis) 2.5 mg BID PO 03/20/17 21:00 03/21/17 21:43 (Lipitor) 40 mg HS PO 03/20/17 21:00 03/21/17 21:43 (Lanoxin) 0.125 mg HS PO 03/20/17 21:00 03/21/17 21:42 (Mucinex Er) 600 mg Q12HR PO 03/20/17 21:00 03/21/17 21:43 (Prinivil) 10 mg DAILY PO 03/21/17 09:00 03/21/17 10:19 (Lopressor) 25 mg DAILY PO 03/21/17 09:00 03/21/17 10:17 (Cortisporin Otic Soln) 2 drop BID RIGHT EAR 03/20/17 21:00 03/21/17 21:43 (Flonase Jonathon Spr) 1 spray BID EACH NARE 03/20/17 21:00 03/21/17 21:44 (Lactinex) 1 tab DAILY PO 03/21/17 09:00 03/21/17 10:16 (Diflucan) 100 mg DAILY PO 03/21/17 09:00 03/26/17 08:59 03/21/17 10:17 (Duoneb Neb) 1 ampule Q12HR NEB NEB 03/21/17 08:00 03/21/17 19:31 (Ativan Inj) 1 mg Q15M PRN IV PUSH 03/21/17 10:00 (Glucophage) 250 mg BIDPC PO 03/21/17 18:00 03/21/17 18:21 (Catapres) 0.1 mg Q6H PRN PO 03/21/17 17:00 (Pill Splitter) 1 ea UNSCH PRN OTHER 03/21/17 18:00 Allergies Allergies Coded Allergies No Known Allergies (Verified Allergy, Unknown, 03/20/17) Exam I&O / VS Vital Signs Date Time Temp Pulse Resp B/P (MAP) Pulse Ox O2 Delivery O2 Flow Rate FiO2 03/22/17 04:38 98.1 98 17 166/75 (105) 92 03/22/17 03:40 92 03/22/17 00:00 93 03/21/17 23:48 99.1 103 17 135/84 (101) 96 03/21/17 21:14 98.5 107 17 146/67 (93) 94 03/21/17 20:00 112 03/21/17 19:33 97 03/21/17 15:13 98.4 104 16 202/85 (124) 96 03/21/17 15:00 97 03/21/17 10:55 98.2 76 18 198/84 (122) 95 03/21/17 07:47 93 21 Objective Radiology Results Last 48 hours Impressions Brain MRI 03/21/17 0000 Signed Impressions: Service Date/Time: Tuesday, March 21, 2017 18:31 - CONCLUSION: 1. No acute findings. Mild white matter signal abnormalities. No recent infarct. Mucosal thickening in the mastoid air cells. Yvon Zhang MD Head CT 03/20/17 1630 Signed Impressions: Service Date/Time: February 17:12 - CONCLUSION: No acute intracranial findings. Gianni Lowe MD Chest X-Ray 03/20/17 1630 Signed Impressions: Service Date/Time: February 16:42 - CONCLUSION: No acute cardiopulmonary disease identified. Gianni Lowe MD Micro and Labs Laboratory Tests Test 03/22/17 06:28 White Blood Count 24.1 Red Blood Count 3.43 Hemoglobin 10.1 Hematocrit 29.0 Mean Corpuscular Volume 84.5 Mean Corpuscular Hemoglobin 29.3 Mean Corpuscular Hemoglobin Concent 34.7 Red Cell Distribution Width 13.5 Platelet Count 413 Mean Platelet Volume 7.6 Neutrophils (%) (Auto) 82.6 Lymphocytes (%) (Auto) 8.8 Monocytes (%) (Auto) 7.3 Eosinophils (%) (Auto) 0.6 Basophils (%) (Auto) 0.7 Neutrophils # (Auto) 19.9 Lymphocytes # (Auto) 2.1 Monocytes # (Auto) 1.8 Eosinophils # (Auto) 0.1 Basophils # (Auto) 0.2 CBC Comment DIFF FINAL Differential Comment Blood Urea Nitrogen 10 Creatinine 0.62 Random Glucose 156 Calcium Level 9.1 Magnesium Level 1.6 Sodium Level 136 Potassium Level 3.5 Chloride Level 100 Carbon Dioxide Level 27.7 Anion Gap 8 Estimat Glomerular Filtration Rate 91 Date/Time Source Procedure Growth Status 03/20/17 18:51 Blood Peripheral Aerobic Blood Culture - Preliminary NO GROWTH IN 1 DAY Resulted 03/20/17 18:51 Blood Peripheral Anaerobic Blood Culture - Preliminary NO GROWTH IN 1 DAY Resulted 03/20/17 18:51 Throat Group A Streptococcus Screen - Preliminary NO BETA STREPTOCOCCI ISOLATED AT 24 H... Resulted Pedro Sandoval MD Mar 22, 2017 07:39
[2017-03-22] MEDS: RESP: ALBUTEROL 2.5 MG/IPRATROPIUM 0.5 MG NEB (SCH) NEB ×2 (08:00→19:23)
--- NOTE | 2017-03-22 08:45 | MG ---
cc: RICKEY DELGADILLO M.D. Lab No: Date: 03/21/2017 Age: 86 Sex: F Race: An EEG was obtained on this 86-year-old patient with history of weakness and altered mentation. MEDICATIONS: 1. Lisinopril. 2. Lopressor. 3. Apixaban. 4. Lipitor. 5. Digoxin. The patient is described as awake and asleep. This EEG shows a mixture of beta with theta and some delta rhythms. There are some sharp contoured waves / discharges maximally frontally, probably more triphasic abnormality rather than a paroxysmal discharge. There are intermittently more pronounced theta and delta rhythms. There is a lack of alpha activity. Photic stimulation showed no significant change. INTERPRETATION: Abnormal EEG because of generalized slowing and some triphasic sharp waves / discharges more suggestive of a metabolic dysfunction rather than an epileptiform abnormality. Clinical correlation. MD YOVANA lBanchard/ALEXIA /8:05 PM /8:33 AM
[2017-03-22] MEDS: metFORMIN HCL 500 MG TAB PO SCH ×2 (09:12→17:49)
[2017-03-22] MEDS: LACTOBACILLUS ACIDOPHILUS TAB PO SCH (09:12)
[2017-03-22] MEDS: guaiFENesin E.R. 600 MG TAB PO SCH ×2 (09:13→22:21)
[2017-03-22] MEDS: APIXABAN 2.5 MG TABLET PO SCH (09:13)
[2017-03-22] MEDS: FLUCONAZOLE 100 MG TAB PO SCH (09:13)
[2017-03-22] MEDS: METOPROLOL TARTRATE 25 MG TAB PO SCH (09:14)
[2017-03-22] MEDS: NEOMYCIN/POLYMYXIN/HYDROCORT OTIC SOLN 10 ML BTL RIGHT EAR SCH ×2 (09:14→22:21)
[2017-03-22] MEDS: LISINOPRIL 10 MG TAB PO SCH (09:14)
[2017-03-22] MEDS: FLUTICASONE PROPIONATE 50 MCG/ACT 16 GM NASAL SPRAY EACH NARE SCH ×2 (09:15→22:21)
[2017-03-22] MEDS: SODIUM CHLORIDE 0.9% FLUSH 10 ML FLUSH IV FLUSH SCH ×2 (09:16→22:21)
[2017-03-22] MEDS: INSULIN ASPART SUPPLEMENTAL SCALE SQ SCH ×4 (09:20→22:22)
--- NOTE | 2017-03-22 11:12 | HHI.PR ---
Subjective Remarks Follow-up encephalopathy. Patient remains confused. Denies headache, dizziness , nausea and vomiting. Objective Vitals Vital Signs Date Time Temp Pulse Resp B/P (MAP) Pulse Ox O2 Delivery O2 Flow Rate FiO2 03/22/17 08:32 100.2 107 18 179/78 (111) 95 03/22/17 04:38 98.1 98 17 166/75 (105) 92 03/22/17 03:40 92 03/22/17 00:00 93 03/21/17 23:48 99.1 103 17 135/84 (101) 96 03/21/17 21:14 98.5 107 17 146/67 (93) 94 03/21/17 20:00 112 03/21/17 19:33 97 03/21/17 15:13 98.4 104 16 202/85 (124) 96 03/21/17 15:00 97 I/O 03/21/17 03/21/17 03/21/17 03/22/17 03/22/17 03/22/17 07:00 15:00 23:00 07:00 15:00 23:00 Intake Total 240 ml 720 ml Balance 240 ml 720 ml Intake Oral 240 ml 720 ml # Voids 1 3 Result Diagram: 03/22/17 0628 03/22/17 0628 Imaging Last Impressions Brain MRI 03/21/17 0000 Signed Impressions: Service Date/Time: Tuesday, March 21, 2017 18:31 - CONCLUSION: 1. No acute findings. Mild white matter signal abnormalities. No recent infarct. Mucosal thickening in the mastoid air cells. Yvon Zhang MD Head CT 03/20/17 1630 Signed Impressions: Service Date/Time: February 17:12 - CONCLUSION: No acute intracranial findings. Gianni Lowe MD Chest X-Ray 03/20/17 1630 Signed Impressions: Service Date/Time: February 16:42 - CONCLUSION: No acute cardiopulmonary disease identified. Gianni Lowe MD Objective Remarks GENERAL: Elderly, female lying in bed SKIN: No rashes, ecchymoses or lesions. Cool and dry. NECK: Trachea midline. No JVD or lymphadenopathy. Supple, nontender, no meningeal signs. CARDIOVASCULAR: Regular rate and rhythm without murmurs, gallops, or rubs. RESPIRATORY: Clear to auscultation. Breath sounds equal bilaterally. No wheezes , rales, or rhonchi. GASTROINTESTINAL: Abdomen soft, non-tender, nondistended. No guarding. MUSCULOSKELETAL: Extremities without clubbing, cyanosis, or edema. No joint tenderness, effusion, or edema noted. No calf tenderness. NEUROLOGICAL: Awake and alert. Cranial nerves II through XII intact. Motor and sensory grossly within normal limits. Five out of 5 muscle strength in all muscle groups. Normal speech. Oriented to person only Procedures none A/P Problem List: (1) Altered mental status ICD Code: R41.82 - Altered mental status, unspecified (2) Leukocytosis ICD Code: D72.829 - Elevated white blood cell count, unspecified Status: Acute Assessment and Plan 1. Encephalopathy Has been waxing/waning for past [address] negative for acute intracranial process MRI done on 03/06/17 showed possible tiny infarct with cerebral atrophy and chronic ischemic small vessel vasculopathy. Repeat MRI no acute findings EEG with no seizure Unclear etiology, may be underlying component of dementia. ESR persistently high. This is patient's third admission this month. Initially diagnosed with PMR and was treated with low-dose prednisone for a few days only as she was readmitted 03/04/17 for sepsis and pneumonia General surgery has been consulted for temporal artery biopsy. We'll hold Eliquis 2. Leukocytosis Unclear etiology - has been persistent since 03/16/17 UA within normal limits Chest x-ray without acute cardiopulmonary disease, images reviewed by me Patient denies fever/chills; endorses sore throat - no erythema, purulent drainage or signs of infection Blood culture pending treated to date Strep culture negative so far Obtain C. difficile, patient not having stools May need lumbar puncture, hold Eliquis Consult infectious disease 3. Transaminitis. Improving Patient with mild transaminitis AST/ALT/alkaline phosphatase 50/55/150 Hepatitis profile negative 4. Atrial fibrillation on Eliquis Continue metoprolol 5. Diabetes mellitus Sliding scale insulin Monitor blood glucose 6. Hypertension/Hyperlipidemia LDL 64. Uncontrolled BP Continue home medications. Clonidine as needed 7. Yeast infection Patient recently diagnosed with yeast infection at her [facility] Continue Diflucan FEN Heart healthy diet Electrolytes: Status post repletion of by mouth potassium, monitor BMP Eliquis will be held for possible procedures Discharge Planning Not ready for discharge with ongoing encephalopathy Problem Qualifiers (1) Altered mental status: Qualified Codes: R41.82 - Altered mental status, unspecified (2) Leukocytosis: Qualified Codes: D72.829 - Elevated white blood cell count, unspecified Alirio Hill MD Mar 22, 2017 11:12
[2017-03-22] MEDS ORDERED: POTASSIUM CHLORIDE 20 MEQ CONTROLLED RELEASE TAB PO ONE (18:30)
--- NOTE | 2017-03-22 18:36 | MB ---
cc: TOAN COWAN MD DATE OF CONSULTATION: 03/22/2017. REASON FOR CONSULTATION: Persistent leukocytosis with altered mental status. REQUESTING PHYSICIAN: Dr. Hill. HISTORY OF PRESENT ILLNESS This is an 86-year-old white female who was brought to the emergency department because of generalized weakness. It is reported the patient's primary physician was concerned for possible CVA because she was not able to follow commands. The patient complains of pain in the right ear and around the right eye. She states that the light seems blurred. She denies double vision. The patient is a poor historian. She responds to questions but is very slow to do so. Her speech is comprehensive. She is afebrile. The white blood cell count is elevated. The patient follows commands for me without difficulty. She states that it is difficult to hear in the right ear. The patient reportedly had an MRI about two weeks ago, which showed a small CVA. She was admitted to the hospital on March 04 with altered mental status. MRI of the brain showed a focal punctate area of restricted diffusion at the right high parietal lobe along the cortex which could be a tiny infarct. The white blood cell count was initially elevated during the admission and then came back to normal before discharge. She received treatment with vancomycin and piperacillin / tazobactam during her last hospitalization. The patient had a low grade fever of 100.2 degrees earlier today. The prior days her temperature was normal. PAST MEDICAL HISTORY: 1. Diabetes mellitus. 2. Hypertension. 3. Atrial fibrillation. 4. Hyperlipidemia. 5. History of skin cancer removal at the left nose. 6. History of CVA. ALLERGIES: NO KNOWN DRUG ALLERGIES. MEDICATIONS: 1. Prinivil. 2. Lopressor. 3. Lactinex. 4. Fluconazole. 5. DuoNeb. 6. Eliquis. 7. Lipitor. 8. Lanoxin. 9. Mucinex. 10. Flonase. SOCIAL HISTORY: No tobacco. No alcohol. No illicit drugs. FAMILY HISTORY: Noncontributory. REVIEW OF SYSTEMS: Difficult to obtain. The patient denies headache, difficulty swallowing, chest pain, shortness of breath, diarrhea, abdominal pain, pain of the extremities and dysuria. Decreased hearing in the right ear. PHYSICAL EXAMINATION: GENERAL: This is a frail elderly female in no acute distress. She is awake but looks a little lethargic. VITAL SIGNS: Include temperature 99.3, blood pressure 180/79, respirations 18, heart rate 100. HEAD, EYES, EARS, NOSE, THROAT: Head is atraumatic with tenderness on palpation of the right temporal area and at the corner of the lower ear region on the right. Extraocular movements grossly intact, pupils reactive to light. No icterus. No conjunctival erythema. Oropharynx very dry mucosa without thrush or lesions. NECK: The neck is supple without adenopathy. LUNGS: Decreased breath sounds throughout. HEART: 2/6 systolic ejection murmur at the left sternal border. The heart sounds are irregular. ABDOMEN: Bowel sounds present, soft, no tenderness appreciated. No masses palpable. RECTAL: Not performed. EXTREMITIES: No cyanosis, clubbing or edema. SKIN: No rash. NEUROLOGIC: No gross focal findings. Strength is decreased on both lower and upper extremities equally. PSYCHIATRIC: The patient is calm and cooperative. LABORATORY DATA WBC 24.1, platelets 413,000, 82% neutrophils, hemoglobin 10.1. Sedimentation rate greater than 140. Creatinine 0.62, estimated GFR 91, sodium 136. Liver function tests normal. Hepatitis serology negative. Streptococcal screen negative. Blood cultures show no growth in two days. IMPRESSION: Altered mental status and leukocytosis in a patient who is complaining of pain in the right temporal and right side of the face and has elevated sedimentation rate. No clear evidence of infection currently. The patient also has low-grade fever. Chest x-ray showed no acute cardiopulmonary disease and brain MRI showed no acute findings but mild white matter signal abnormalities. She also was noted to have mucosal thickening in the mastoid air cells on the MRI of the brain. RECOMMENDATIONS: 1. Monitor the white blood cell count. 2. I agree with a temporal artery biopsy which neurology has recommended. 3. Follow the blood cultures. 4. Monitor the white blood cell count and temperature and if the elevated temperature persists, can consider initiating antibiotics besides the fluconazole, which has been started. Thank you for this consultation. I will follow the patient's progress along with you. Toan Cowan MD FD/ALEXIA /3:08 PM /6:10 PM MARLENI
--- NOTE | 2017-03-22 19:28 | PD.CONS ---
HPI Service General surgery Consult Requested By Dr. Sandoval Reason for Consult Temporal artery biopsy Primary Care Physician Julia Dubon DO History of Present Illness 86 yo F he has been in and out of rehabilitation and the hospital for about a month presents with generalized weakness and confusion 2 days ago. She had a white blood count of 24,000. She is noted to have encephalopathy of unknown etiology. Brain MRI showed no acute findings. EEG showed generalized slowing and some sharp waves possibly related to metabolic dysfunction. ESR is greater than 140. The patient is a poor historian, although she does relate to me that she has had 'echoing' of the right ear. At some point she says she had a "terrible" pain in the right upper cheek area. I've been consulted by Dr. Sandoval for RIGHT temporal artery biopsy. Dr. Stovall also has evaluated Mrs. Morillo and agrees with the recommendation for biopsy. Eliquis last taken on today 03/22/17 at 9am. Review of Systems ROS Limitations: Clinical Condition, Altered Mental Status Ears, nose, mouth, throat: COMPLAINS OF: Ear Pain Cardiovascular: DENIES: Chest pain Gastrointestinal: DENIES: Abdominal pain Neurologic: DENIES: Seizures Psychiatric: COMPLAINS OF: Confusion Past Family Social History Past Medical History Hypertension Diabetes mellitus Atrial fibrillation Hyperlipidemia History of possible small CVA 2 weeks ago Past Surgical History Facial skin cancer excision Reported Medications Reported Meds & Active Scripts Active Atorvastatin (Atorvastatin Calcium) 40 Mg Tab 40 Mg PO HS Eliquis (Apixaban) 2.5 Mg Tab 2.5 Mg PO BID 30 Days Lisinopril 10 Mg Tab 10 Mg PO DAILY Metformin ER (Metformin HCl) 500 Mg Kaleb 500 Mg PO DAILY With evening meal Reported Milk of Magnesia Liq (Magnesium Hydroxide) 400 Mg/5 Ml Susp 30 Ml PO ONCE PRN Novolog Inj (Insulin Aspart) 1,000 Unit/10 Ml Vial 0 SQ BID Sliding Scale as directed. Tylenol (Acetaminophen) 325 Mg Tab 325 Mg PO Q4H PRN Flonase Nasal [place] (Fluticasone Nasal [place]) 50 Mcg/Act [place] 1 [place] EACH NARE BID Duoneb (Ipratropium-Albuterol Neb) 0.5-2.5 Mg/3 Ml Neb 3 Ml NEB Q12HR Mucus Relief ER (Guaifenesin) 600 Mg Tab 600 Mg PO Q12HR Bactroban Nasal Oint (Mupirocin Nasal Oint) 2% Oint 1 Applic EACH NARE BID [facility] (Lactobacillus-Inulin) 15 Billion Cell Cap 1 Cap PO DAILY 14 Days Kdbsdssb-Cfsfrjddu-BV Otic Drops (Neomycin/Polymyxin/Hydrocortisone) 1 % Soln 2 Drop RIGHT EAR BID 5 Days Lanoxin (Digoxin) 125 Mcg Tablet 125 Mcg PO DAILY AT 7PM Metoprolol Tartrate 25 Mg Tab 25 Mg PO DAILY Fluconazole 100 Mg Tab 100 Mg PO DAILY 5 Days Allergies: Coded Allergies: No Known Allergies (Verified Allergy, Unknown, 03/20/17) Active Ordered Medications Current Medications Medications (Trade) Dose Ordered Sig/Janna Route Start Time Stop Time Status Last Admin (NS Flush) 2 ml UNSCH PRN IV FLUSH 03/20/17 19:30 (NS Flush) 2 ml BID IV FLUSH 03/20/17 21:00 03/22/17 09:16 (Tylenol) 650 mg Q4H PRN PO 03/20/17 19:30 (Zofran Inj) 4 mg Q6H PRN IVP 03/20/17 19:30 (D50w (Vial) Inj) 50 ml UNSCH PRN IV PUSH 03/20/17 19:30 (Glucagon Inj) 1 mg UNSCH PRN OTHER 03/20/17 19:30 (NovoLOG SUPPLEMENTAL SCALE) 1 ACHS SLIDING SCALE SQ 03/20/17 21:00 03/22/17 12:41 (Eliquis) 2.5 mg BID PO 03/20/17 21:00 Future Hold 03/22/17 09:13 (Lipitor) 40 mg HS PO 03/20/17 21:00 03/21/17 21:43 (Lanoxin) 0.125 mg HS PO 03/20/17 21:00 03/21/17 21:42 (Mucinex Er) 600 mg Q12HR PO 03/20/17 21:00 03/22/17 09:13 (Prinivil) 10 mg DAILY PO 03/21/17 09:00 03/22/17 09:14 (Lopressor) 25 mg DAILY PO 03/21/17 09:00 03/22/17 09:14 (Cortisporin Otic Soln) 2 drop BID RIGHT EAR 03/20/17 21:00 03/22/17 09:14 (Flonase Jonathon Spr) 1 spray BID EACH NARE 03/20/17 21:00 03/22/17 09:15 (Lactinex) 1 tab DAILY PO 03/21/17 09:00 03/22/17 09:12 (Diflucan) 100 mg DAILY PO 03/21/17 09:00 03/26/17 08:59 03/22/17 09:13 (Duoneb Neb) 1 ampule Q12HR NEB NEB 03/21/17 08:00 03/21/17 19:31 (Ativan Inj) 1 mg Q15M PRN IV PUSH 03/21/17 10:00 (Glucophage) 250 mg BIDPC PO 03/21/17 18:00 03/22/17 17:49 (Catapres) 0.1 mg Q6H PRN PO 03/21/17 17:00 (Pill Splitter) 1 ea UNSCH PRN OTHER 03/21/17 18:00 Family History Noncontributory Social History Lives at home with her . She has a daughter Lindsey and granddaughter who help care for she and her . No ETOH tobacco or drug abuse. Physical Exam Vital Signs Vital Signs Date Time Temp Pulse Resp B/P (MAP) Pulse Ox O2 Delivery O2 Flow Rate FiO2 03/22/17 15:58 98.7 102 18 162/72 (102) 94 03/22/17 12:00 93 03/22/17 11:55 99.3 100 18 180/79 (112) 95 03/22/17 08:32 100.2 107 18 179/78 (111) 95 03/22/17 08:00 107 03/22/17 04:38 98.1 98 17 166/75 (105) 92 03/22/17 03:40 92 03/22/17 00:00 93 03/21/17 23:48 99.1 103 17 135/84 (101) 96 03/21/17 21:14 98.5 107 17 146/67 (93) 94 03/21/17 20:00 112 03/21/17 19:33 97 Physical Exam GENERAL: Awake and alert. Mild confusion. HEAD: Normocephalic. Atraumatic. Tender to palpation right superior temporal area. EYES: Pupils equal round and reactive to light bilaterally. No scleral icterus. ENT: Moist oral mucosa. CHEST: Lungs clear to auscultation bilaterally with no wheezing or rhonchi. No respiratory distress. CARDIOVASCULAR: Regular rate and rhythm. SKIN: Warm, dry, nonjaundiced. Laboratory Laboratory Tests Test 03/22/17 06:28 White Blood Count 24.1 Red Blood Count 3.43 Hemoglobin 10.1 Hematocrit 29.0 Mean Corpuscular Volume 84.5 Mean Corpuscular Hemoglobin 29.3 Mean Corpuscular Hemoglobin Concent 34.7 Red Cell Distribution Width 13.5 Platelet Count 413 Mean Platelet Volume 7.6 Neutrophils (%) (Auto) 82.6 Lymphocytes (%) (Auto) 8.8 Monocytes (%) (Auto) 7.3 Eosinophils (%) (Auto) 0.6 Basophils (%) (Auto) 0.7 Neutrophils # (Auto) 19.9 Lymphocytes # (Auto) 2.1 Monocytes # (Auto) 1.8 Eosinophils # (Auto) 0.1 Basophils # (Auto) 0.2 CBC Comment DIFF FINAL Differential Comment Blood Urea Nitrogen 10 Creatinine 0.62 Random Glucose 156 Calcium Level 9.1 Magnesium Level 1.6 Sodium Level 136 Potassium Level 3.5 Chloride Level 100 Carbon Dioxide Level 27.7 Anion Gap 8 Estimat Glomerular Filtration Rate 91 Total Creatine Kinase 35 Date/Time Source Procedure Growth Status 03/20/17 18:51 Blood Peripheral Aerobic Blood Culture - Preliminary NO GROWTH IN 2 DAYS Resulted 03/20/17 18:51 Blood Peripheral Anaerobic Blood Culture - Preliminary NO GROWTH IN 2 DAYS Resulted 03/20/17 18:51 Throat Group A Streptococcus Screen - Final NO GP A BETA STREP ISOLATED. Complete Result Diagram: 03/22/17 0628 03/22/17 0628 Imaging Last Impressions Brain MRI 03/21/17 0000 Signed Impressions: Service Date/Time: Tuesday, March 21, 2017 18:31 - CONCLUSION: 1. No acute findings. Mild white matter signal abnormalities. No recent infarct. Mucosal thickening in the mastoid air cells. Yvon Zhang MD Head CT 03/20/17 1630 Signed Impressions: Service Date/Time: February 17:12 - CONCLUSION: No acute intracranial findings. Gianni Lowe MD Chest X-Ray 03/20/17 1630 Signed Impressions: Service Date/Time: February 16:42 - CONCLUSION: No acute cardiopulmonary disease identified. Gianni Lowe MD Assessment and Plan Assessment and Plan 86 yo F with right sided temporal pain and tenderness, encephalopathy, very elevated ESR. Will plan RIGHT temporal artery biopsy Friday or Friday. I called the patient's daughter to discuss but she did not answer. Will try again. Reg,Miki RAMOS Mar 22, 2017 19:28
[2017-03-22] MEDS: DIGOXIN 0.125 MG TAB PO SCH (22:20)
[2017-03-22] MEDS: ATORVASTATIN 40 MG TAB PO SCH (22:21)
[2017-03-23] VITALS (9 sets, daily range): BP systolic 128–160; BP diastolic 60–73; PULSE 79–100; RESP 16–21; TEMP 97.3–98.1; O2SAT 92–96
[2017-03-23 07:51] LABS: AUTOMATED NEUTROPHIL # 19.2 TH/MM3 (1.8-7.7); BASOPHIL # 0.1 TH/MM3 (0-0.2); BASOPHIL % 0.5 % (0.0-2.0); EOSINOPHIL # 0.2 TH/MM3 (0-0.4); EOSINOPHIL % 0.7 % (0.0-4.0); HEMATOCRIT 29.1 % (35.0-46.0); LYMPHOCYTE # 1.6 TH/MM3 (1.0-4.8); MEAN CELL VOLUME 85.2 FL (80.0-100.0); MEAN CORPUSCULAR HEMOGLOBIN 29.2 PG (27.0-34.0); MEAN CORPUSCULAR HGB CONC 34.2 % (32.0-36.0); MEAN PLATELET VOLUME 7.2 FL (7.0-11.0); MONO % 7.1 % (0.0-8.0); MONOCYTE # 1.6 TH/MM3 (0-0.9); NEUT % 84.7 % (16.0-70.0); PLATELET COUNT 402 TH/MM3 (150-450); RED BLOOD COUNT 3.41 MIL/MM3 (4.00-5.30); RED CELL DISTRIBUTION WIDTH 13.8 % (11.6-17.2); WHITE BLOOD COUNT 22.7 TH/MM3 (4.0-11.0)
[2017-03-23 08:12] LABS: BICARBONATE 27.1 MEQ/L (21.0-32.0); CALCIUM 9.2 MG/DL (8.5-10.1); CREATININE 0.67 MG/DL (0.50-1.00); MAGNESIUM 1.6 MG/DL (1.5-2.5)
[2017-03-23] MEDS: RESP: ALBUTEROL 2.5 MG/IPRATROPIUM 0.5 MG NEB (SCH) NEB ×2 (08:28→20:26)
[2017-03-23] MEDS: LISINOPRIL 10 MG TAB PO SCH (10:34)
[2017-03-23] MEDS: LACTOBACILLUS ACIDOPHILUS TAB PO SCH (10:34)
[2017-03-23] MEDS: FLUCONAZOLE 100 MG TAB PO SCH (10:35)
[2017-03-23] MEDS: guaiFENesin E.R. 600 MG TAB PO SCH ×2 (10:36→21:08)
[2017-03-23] MEDS: metFORMIN HCL 500 MG TAB PO SCH ×2 (10:36→17:15)
[2017-03-23] MEDS: METOPROLOL TARTRATE 25 MG TAB PO SCH (10:36)
[2017-03-23] MEDS: INSULIN ASPART SUPPLEMENTAL SCALE SQ SCH ×4 (10:43→21:16)
[2017-03-23] MEDS: FLUTICASONE PROPIONATE 50 MCG/ACT 16 GM NASAL SPRAY EACH NARE SCH ×2 (10:43→21:12)
[2017-03-23] MEDS: SODIUM CHLORIDE 0.9% FLUSH 10 ML FLUSH IV FLUSH SCH ×2 (10:44→21:08)
[2017-03-23] MEDS: NEOMYCIN/POLYMYXIN/HYDROCORT OTIC SOLN 10 ML BTL RIGHT EAR SCH ×2 (10:44→21:12)
--- NOTE | 2017-03-23 10:47 | HHI.PR ---
Subjective Remarks Follow-up encephalopathy. Complaining of facial pain. She is more awake and conversant today. Seen with grandson. Discussed with RN, general surgery and neurology Objective Vitals Vital Signs Date Time Temp Pulse Resp B/P (MAP) Pulse Ox O2 Delivery O2 Flow Rate FiO2 03/23/17 08:28 93 21 03/23/17 08:01 97.8 92 18 154/67 (96) 94 03/23/17 05:29 97.8 97 17 128/60 (82) 93 03/23/17 04:00 90 03/23/17 00:00 100 03/22/17 23:32 98.0 100 17 130/60 (83) 95 03/22/17 20:53 98.0 110 16 132/60 (84) 94 03/22/17 20:15 113 03/22/17 19:24 96 21 03/22/17 18:00 96 03/22/17 15:58 98.7 102 18 162/72 (102) 94 03/22/17 12:00 93 03/22/17 11:55 99.3 100 18 180/79 (112) 95 I/O 03/22/17 03/22/17 03/22/17 03/23/17 03/23/17 03/23/17 07:00 15:00 23:00 07:00 15:00 23:00 Intake Total 720 ml 480 ml Balance 720 ml 480 ml Intake Oral 720 ml 480 ml # Voids 3 2 Result Diagram: 03/23/17 0725 03/23/17 0725 Imaging Last Impressions Brain MRI 03/21/17 0000 Signed Impressions: Service Date/Time: Tuesday, March 21, 2017 18:31 - CONCLUSION: 1. No acute findings. Mild white matter signal abnormalities. No recent infarct. Mucosal thickening in the mastoid air cells. Yvon Zhang MD Head CT 03/20/17 1630 Signed Impressions: Service Date/Time: February 17:12 - CONCLUSION: No acute intracranial findings. Gianni Lowe MD Chest X-Ray 03/20/17 1630 Signed Impressions: Service Date/Time: February 16:42 - CONCLUSION: No acute cardiopulmonary disease identified. Gianni Lowe MD Objective Remarks GENERAL: Elderly, female lying in bed SKIN: No rashes, ecchymoses or lesions. Cool and dry. NECK: Trachea midline. No JVD or lymphadenopathy. Supple, nontender, no meningeal signs. CARDIOVASCULAR: Regular rate and rhythm without murmurs, gallops, or rubs. RESPIRATORY: Clear to auscultation. Breath sounds equal bilaterally. No wheezes , rales, or rhonchi. GASTROINTESTINAL: Abdomen soft, non-tender, nondistended. No guarding. MUSCULOSKELETAL: Extremities without clubbing, cyanosis, or edema. No joint tenderness, effusion, or edema noted. No calf tenderness. NEUROLOGICAL: Awake and alert. Cranial nerves II through XII intact. Motor and sensory grossly within normal limits. Five out of 5 muscle strength in all muscle groups. Normal speech. Oriented to person and place Procedures none A/P Problem List: (1) Altered mental status ICD Code: R41.82 - Altered mental status, unspecified (2) Leukocytosis ICD Code: D72.829 - Elevated white blood cell count, unspecified Status: Acute Assessment and Plan 1. Encephalopathy Has been waxing/waning for past [address] negative for acute intracranial process MRI done on 03/06/17 showed possible tiny infarct with cerebral atrophy and chronic ischemic small vessel vasculopathy. Repeat MRI no acute findings EEG with no seizure Unclear etiology, may be underlying component of dementia. ESR persistently high. This is patient's third admission this month. Initially diagnosed with PMR and was treated with low-dose prednisone for a few days only as she was readmitted 03/04/17 for sepsis and pneumonia General surgery has been consulted for temporal artery biopsy scheduled for tomorrow. We'll hold Shazia Discussed with neurology, start Solu-Medrol 60 mg IV every 8 hours for 2 days then high-dose prednisone high suspicion for temporal arteritis 2. Leukocytosis Unclear etiology - has been persistent since 03/16/17 UA within normal limits Chest x-ray without acute cardiopulmonary disease, images reviewed by me Patient denies fever/chills; endorses sore throat - no erythema, purulent drainage or signs of infection Blood culture pending treated to date Strep culture negative so far Obtain C. difficile, patient not having stools May need lumbar puncture, hold Shazia Consulted infectious disease, agrees with temporal artery biopsy 3. Transaminitis. Improving Patient with mild transaminitis AST/ALT/alkaline phosphatase 50/55/150 Hepatitis profile negative 4. Atrial fibrillation. Currently in sinus rhythm on Eliquis Continue metoprolol 5. Diabetes mellitus Sliding scale insulin Monitor blood glucose 6. Hypertension/Hyperlipidemia LDL 64. BP improving Continue home medications. Clonidine as needed 7. Yeast infection Patient recently diagnosed with yeast infection at her [facility] Continue Diflucan until March 26 FEN Heart healthy diet Electrolytes: Status post repletion of by mouth potassium, monitor BMP Eliquis will be held for temporal artery biopsy tomorrow Discharge Planning Not ready for discharge for temporal artery biopsy tomorrow Problem Qualifiers (1) Altered mental status: Qualified Codes: R41.82 - Altered mental status, unspecified (2) Leukocytosis: Qualified Codes: D72.829 - Elevated white blood cell count, unspecified Alirio Hill MD Mar 23, 2017 10:47
[2017-03-23] MEDS: methylPREDNISolone SOD SUCC 125 MG/2 ML VIAL IV PUSH SCH ×2 (13:28→21:22)
[2017-03-23] MEDS: ATORVASTATIN 40 MG TAB PO SCH (21:08)
[2017-03-23] MEDS: DIGOXIN 0.125 MG TAB PO SCH (21:09)
[2017-03-24] VITALS (9 sets, daily range): BP systolic 124–148; BP diastolic 60–65; PULSE 71–104; RESP 17–20; TEMP 97.2–97.7; O2SAT 92–96
[2017-03-24] MEDS: methylPREDNISolone SOD SUCC 125 MG/2 ML VIAL IV PUSH SCH ×3 (05:19→21:18)
[2017-03-24] MEDS ORDERED: LACTATED RINGER'S 1000 ML IV PRN (06:00)
[2017-03-24] MEDS ORDERED: SODIUM CHLORID 0.9% 500 ML IV PRN (06:00)
[2017-03-24] MEDS ORDERED: POVIDONE IODINE 5% (ANTISEPSIS KIT) 4 APPLICATIONS EACH NARE PRN (06:00)
[2017-03-24] MEDS ORDERED: CHLORHEXIDINE GLUCONATE 2 % 1 PACK (2 CLOTHS) TOPICAL PRN (06:00)
[2017-03-24] MEDS ORDERED: METOPROLOL TARTRATE 25 MG TAB PO PRN (06:00)
[2017-03-24] MEDS: RESP: ALBUTEROL 2.5 MG/IPRATROPIUM 0.5 MG NEB (SCH) NEB ×2 (07:35→19:02)
[2017-03-24] MEDS: INSULIN ASPART SUPPLEMENTAL SCALE SQ SCH ×4 (08:00→21:32)
[2017-03-24] MEDS: SODIUM CHLORIDE 0.9% FLUSH 10 ML FLUSH IV FLUSH SCH ×2 (09:00→21:19)
[2017-03-24] MEDS: NEOMYCIN/POLYMYXIN/HYDROCORT OTIC SOLN 10 ML BTL RIGHT EAR SCH ×2 (09:00→21:16)
[2017-03-24] MEDS: FLUTICASONE PROPIONATE 50 MCG/ACT 16 GM NASAL SPRAY EACH NARE SCH ×2 (09:00→21:16)
[2017-03-24] MEDS: LACTOBACILLUS ACIDOPHILUS TAB PO SCH (09:14)
[2017-03-24] MEDS: guaiFENesin E.R. 600 MG TAB PO SCH ×2 (09:14→21:18)
[2017-03-24] MEDS: LISINOPRIL 10 MG TAB PO SCH (09:14)
[2017-03-24] MEDS: METOPROLOL TARTRATE 25 MG TAB PO SCH (09:15)
[2017-03-24] MEDS: FLUCONAZOLE 100 MG TAB PO SCH (09:15)
[2017-03-24] MEDS: metFORMIN HCL 500 MG TAB PO SCH ×2 (09:15→18:00)
--- NOTE | 2017-03-24 11:01 | HHI.PR ---
Subjective Remarks awake and alert, oriented x 3 feels hungry no headache or jaw pain today "none, believe it or not" no neck pain Objective Vitals Vital Signs Date Time Temp Pulse Resp B/P (MAP) Pulse Ox O2 Delivery O2 Flow Rate FiO2 03/24/17 08:15 97.7 86 20 128/61 (83) 92 03/24/17 07:35 94 21 03/24/17 04:00 97.4 71 17 124/62 (82) 93 03/24/17 00:00 97.2 82 18 126/60 (82) 95 03/23/17 20:00 97.3 88 21 138/62 (87) 95 03/23/17 16:00 97.6 83 16 148/70 (96) 92 03/23/17 13:00 98.1 79 16 160/73 (102) 94 03/23/17 11:25 97.6 83 18 155/72 (99) 96 I/O 03/23/17 03/23/17 03/23/17 03/24/17 03/24/17 03/24/17 07:00 15:00 23:00 07:00 15:00 23:00 Intake Total 480 ml 480 ml Balance 480 ml 480 ml Intake Oral 480 ml 480 ml # Voids 2 1 5 # Bowel Movements 1 Result Diagram: 03/23/17 0725 03/23/17 0725 Imaging Last Impressions Brain MRI 03/21/17 0000 Signed Impressions: Service Date/Time: Tuesday, March 21, 2017 18:31 - CONCLUSION: 1. No acute findings. Mild white matter signal abnormalities. No recent infarct. Mucosal thickening in the mastoid air cells. Yvon Zhang MD Head CT 03/20/17 1630 Signed Impressions: Service Date/Time: February 17:12 - CONCLUSION: No acute intracranial findings. Gianni Lowe MD Chest X-Ray 03/20/17 1630 Signed Impressions: Service Date/Time: February 16:42 - CONCLUSION: No acute cardiopulmonary disease identified. Gianni Lowe MD Objective Remarks awake and alert, appears weak, oriented x 3 anicteric, puils equal, EOMF full range of motion, no temporal tenderness lungs- clear regular rhythm abdomen soft, nontender extremities no edema moves all extremities spontaenously Procedures none A/P Problem List: (1) Altered mental status ICD Code: R41.82 - Altered mental status, unspecified (2) Leukocytosis ICD Code: D72.829 - Elevated white blood cell count, unspecified Status: Acute Assessment and Plan 86 years old female 1. Encephalopathy- improving Has been waxing/waning for past [address] negative for acute intracranial process MRI done on 03/06/17 showed possible tiny infarct with cerebral atrophy and chronic ischemic small vessel vasculopathy. Repeat MRI no acute findings EEG with no seizure Unclear etiology, may be underlying component of dementia. ESR persistently high. This is patient's third admission this month. Initially diagnosed with PMR and was treated with low-dose prednisone for a few days only as she was readmitted 03/04/17 for sepsis and pneumonia General surgery has been consulted for temporal artery biopsy scheduled for tomorrow. We'll hold Eliquis Neurology ff on Solu-Medrol 60 mg IV every 8 hours for 2 days then high-dose prednisone high suspicion for temporal arteritis Awaiting biopsy - tomorrow 2. Leukocytosis Unclear etiology - has been persistent since 03/16/17 UA within normal limits Chest x-ray without acute cardiopulmonary disease Patient denies fever/chills; endorses sore throat - no erythema, purulent drainage or signs of infection- no complains today Blood culture pending treated to date Strep culture negative so far Obtain C. difficile, patient not having stools May need lumbar puncture, hold Eliquis Consulted infectious disease, agrees with temporal artery biopsy 3. Transaminitis. Improving Patient with mild transaminitis AST/ALT/alkaline phosphatase 50/55/150 Hepatitis profile negative 4. Atrial fibrillation. Currently in sinus rhythm on Eliquis- held for possible procedure Continue metoprolol 5. Diabetes mellitus- not known diabetic- but on d/w son- at one point was told that she was borderline- but not placed on meds now unmasked by steroids change to ADA diet nutrition counselling Monitor blood glucose 6. Hypertension/Hyperlipidemia LDL 64. BP improving Continue home medications. Clonidine as needed 7. Yeast infection Patient recently diagnosed with yeast infection at her [facility] Continue Diflucan until March 26 PT/OT consult- per patient up and ambulating independently FEN Heart healthy diet Electrolytes: Status post repletion of by mouth potassium, monitor BMP Eliquis will be held for temporal artery biopsy tomorrow Discharge Planning Not ready for discharge for temporal artery biopsy Problem Qualifiers (1) Altered mental status: Qualified Codes: R41.82 - Altered mental status, unspecified (2) Leukocytosis: Qualified Codes: D72.829 - Elevated white blood cell count, unspecified Alfredo Ansari MD Mar 24, 2017 11:01
--- NOTE | 2017-03-24 12:28 | HHI.PR ---
Subjective Subjective Notes Son at bedside with her. She has no complaints right now. Objective Vitals/I&O Vital Signs Date Time Temp Pulse Resp B/P (MAP) Pulse Ox O2 Delivery O2 Flow Rate FiO2 03/24/17 08:15 97.7 86 20 128/61 (83) 92 03/24/17 07:35 21 03/20/17 18:32 Room Air Labs Date/Time Source Procedure Growth Status 03/20/17 18:51 Blood Peripheral Aerobic Blood Culture - Preliminary NO GROWTH IN 4 DAYS Resulted 03/20/17 18:51 Blood Peripheral Anaerobic Blood Culture - Preliminary NO GROWTH IN 4 DAYS Resulted 03/20/17 18:51 Throat Group A Streptococcus Screen - Final NO GP A BETA STREP ISOLATED. Complete Radiology Last Impressions Brain MRI 03/21/17 0000 Signed Impressions: Service Date/Time: Tuesday, March 21, 2017 18:31 - CONCLUSION: 1. No acute findings. Mild white matter signal abnormalities. No recent infarct. Mucosal thickening in the mastoid air cells. Yvon Zhang MD Head CT 03/20/17 1630 Signed Impressions: Service Date/Time: February 17:12 - CONCLUSION: No acute intracranial findings. Gianni Lowe MD Chest X-Ray 03/20/17 1630 Signed Impressions: Service Date/Time: February 16:42 - CONCLUSION: No acute cardiopulmonary disease identified. Gianni Lowe MD Narrative Exam No distress, awake and alert A/P Assessment and Plan 86 yo F with right sided facial and ear pain, elevated ESR, encephalopathy. Plan RIGHT temporal artery biopsy tomorrow. Miki Finney MD Mar 24, 2017 12:28
--- NOTE | 2017-03-24 14:35 | HHI.IDPN ---
Note Infectious Disease Note Patient is confused. Oriented to person and knows she is in the hospital. Says she feels tired. Afebrile. 86-year-old white female who was brought to the emergency department because of generalized weakness. It is reported the patient's primary physician was concerned for possible CVA because she was not able to follow commands. The patient complains of pain in the right ear and around the right eye. She states that the light seems blurred. She denies double vision. The patient is a poor historian. She was previously admitted to the hospital on March 04 with altered mental status. PAST MEDICAL HISTORY: 1. Diabetes mellitus. 2. Hypertension. 3. Atrial fibrillation. 4. Hyperlipidemia. 5. History of skin cancer removal at the left nose. 6. History of CVA. ALLERGIES: NO KNOWN DRUG ALLERGIES. OBJECTIVE: Vital Signs Date Time Temp Pulse Resp B/P (MAP) Pulse Ox O2 Delivery O2 Flow Rate FiO2 03/24/17 12:51 97.4 82 20 148/65 (92) 95 03/24/17 08:15 97.7 86 20 128/61 (83) 92 03/24/17 07:35 94 21 03/24/17 04:00 97.4 71 17 124/62 (82) 93 03/24/17 00:00 97.2 82 18 126/60 (82) 95 03/23/17 20:00 97.3 88 21 138/62 (87) 95 03/23/17 16:00 97.6 83 16 148/70 (96) 92 Laboratory Tests Test 03/23/17 07:25 White Blood Count 22.7 TH/MM3 Red Blood Count 3.41 MIL/MM3 Hemoglobin 10.0 GM/DL Hematocrit 29.1 % Mean Corpuscular Volume 85.2 FL Mean Corpuscular Hemoglobin 29.2 PG Mean Corpuscular Hemoglobin Concent 34.2 % Red Cell Distribution Width 13.8 % Platelet Count 402 TH/MM3 Mean Platelet Volume 7.2 FL Neutrophils (%) (Auto) 84.7 % Lymphocytes (%) (Auto) 7.0 % Monocytes (%) (Auto) 7.1 % Eosinophils (%) (Auto) 0.7 % Basophils (%) (Auto) 0.5 % Neutrophils # (Auto) 19.2 TH/MM3 Lymphocytes # (Auto) 1.6 TH/MM3 Monocytes # (Auto) 1.6 TH/MM3 Eosinophils # (Auto) 0.2 TH/MM3 Basophils # (Auto) 0.1 TH/MM3 CBC Comment DIFF FINAL Differential Comment Laboratory Tests Test 03/23/17 07:25 Blood Urea Nitrogen 12 MG/DL Creatinine 0.67 MG/DL Random Glucose 163 MG/DL Calcium Level 9.2 MG/DL Magnesium Level 1.6 MG/DL Sodium Level 134 MEQ/L Potassium Level 3.8 MEQ/L Chloride Level 99 MEQ/L Carbon Dioxide Level 27.1 MEQ/L Anion Gap 8 MEQ/L Estimat Glomerular Filtration Rate 83 ML/MIN IMAGING: Brain MRI 03/21/17 0000 Signed Impressions: Service Date/Time: Tuesday, March 21, 2017 18:31 - CONCLUSION: 1. No acute findings. Mild white matter signal abnormalities. No recent infarct. Mucosal thickening in the mastoid air cells. Yvon Zhang MD Head CT 03/20/17 1630 Signed Impressions: Service Date/Time: February 17:12 - CONCLUSION: No acute intracranial findings. Gianni Lowe MD Chest X-Ray 03/20/17 1630 Signed Impressions: Service Date/Time: February 16:42 - CONCLUSION: No acute cardiopulmonary disease identified. Gianni Lowe MD PHYSICAL EXAMINATION: GENERAL: No acute distress. HEAD, EYES, EARS, NOSE, THROAT: Head is atraumatic with tenderness on palpation of the right temporal area and at the corner of the lower ear region on the right. Extraocular movements grossly intact, pupils reactive to light. No icterus. No conjunctival erythema. Oropharynx very dry mucosa without thrush or lesions. NECK: Supple without adenopathy. LUNGS: Decreased breath sounds. HEART: 2/6 systolic ejection murmur at the left sternal border. The heart sounds are irregular. ABDOMEN: Bowel sounds present, soft, no tenderness. No masses palpable. EXTREMITIES: No cyanosis, clubbing or edema. SKIN: No rash. NEUROLOGIC: No gross focal findings. Strength is decreased on both lower and upper extremities equally. PSYCHIATRIC: The patient is calm and cooperative. IMPRESSION: Altered mental status and leukocytosis in a patient who is complaining of pain in the right temporal and right side of the face and has elevated sedimentation rate. 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 No clear evidence of infection. RECOMMENDATIONS: 1. Monitor the white blood cell count. 2. I agree with a temporal artery biopsy which neurology has recommended. 3. Follow the blood cultures to completion. Daryl Stovall MD Mar 24, 2017 14:35
--- NOTE | 2017-03-24 16:28 | HHI.PR ---
Review/Management Daily Summary 03/22 intt confusion over night per RN asleep this am data reviewed esr very high undetermined dx would ask for temporal artery bx through gen surgery also consider hemo eval for persistent leukocytosis 03/24 feeling better seemed better oriented this afternoon she knew place and even date moved 4 limbs well on steroids for possible temporal arterites, discussed with dr Hill yesterday temporal artery bx planned Subjective Subjective Comments No acute events reported headache better Active Medications Current Medications Medications (Trade) Dose Ordered Sig/Janna Route Start Time Stop Time Status Last Admin (NS Flush) 2 ml UNSCH PRN IV FLUSH 03/20/17 19:30 (NS Flush) 2 ml BID IV FLUSH 03/20/17 21:00 03/24/17 09:00 (Tylenol) 650 mg Q4H PRN PO 03/20/17 19:30 (Zofran Inj) 4 mg Q6H PRN IVP 03/20/17 19:30 (D50w (Vial) Inj) 50 ml UNSCH PRN IV PUSH 03/20/17 19:30 (Glucagon Inj) 1 mg UNSCH PRN OTHER 03/20/17 19:30 (NovoLOG SUPPLEMENTAL SCALE) 1 ACHS SLIDING SCALE SQ 03/20/17 21:00 03/24/17 12:00 (Eliquis) 2.5 mg BID PO 03/20/17 21:00 Future Hold 03/22/17 09:13 (Lipitor) 40 mg HS PO 03/20/17 21:00 03/23/17 21:08 (Lanoxin) 0.125 mg HS PO 03/20/17 21:00 03/23/17 21:09 (Mucinex Er) 600 mg Q12HR PO 03/20/17 21:00 03/24/17 09:14 (Prinivil) 10 mg DAILY PO 03/21/17 09:00 03/24/17 09:14 (Lopressor) 25 mg DAILY PO 03/21/17 09:00 03/24/17 09:15 (Cortisporin Otic Soln) 2 drop BID RIGHT EAR 03/20/17 21:00 03/24/17 09:00 (Flonase Jonathon Spr) 1 spray BID EACH NARE 03/20/17 21:00 03/24/17 09:00 (Lactinex) 1 tab DAILY PO 03/21/17 09:00 03/24/17 09:14 (Diflucan) 100 mg DAILY PO 03/21/17 09:00 03/26/17 08:59 03/24/17 09:15 (Duoneb Neb) 1 ampule Q12HR NEB NEB 03/21/17 08:00 03/24/17 07:35 (Ativan Inj) 1 mg Q15M PRN IV PUSH 03/21/17 10:00 (Glucophage) 250 mg BIDPC PO 03/21/17 18:00 03/24/17 09:15 (Catapres) 0.1 mg Q6H PRN PO 03/21/17 17:00 (Pill Splitter) 1 ea UNSCH PRN OTHER 03/21/17 18:00 (SoluMEDROL INJ) 60 mg Q8HR IV PUSH 03/23/17 14:00 03/24/17 13:48 Lactated Ringer's 1,000 ml @ 30 mls/hr Q24H PRN IV 03/24/17 06:00 03/27/17 05:59 Sodium Chloride 500 ml @ 30 mls/hr [id number] PRN IV 03/24/17 06:00 03/27/17 05:59 (Lopressor) 25 mg SUPERVISOR CYTOLOGY PRN PO 03/24/17 06:00 03/27/17 05:59 (Betadine 5% Antisepsis Kit) 1 applic SUPER[employer]Y PRN EACH NARE 03/24/17 06:00 03/27/17 05:59 (Chlorhexidine 2% Cloth) 3 pack SUPER[employer]OR [employer] PRN TOPICAL 03/24/17 06:00 03/27/17 05:59 Allergies Allergies Coded Allergies No Known Allergies (Verified Allergy, Unknown, 03/20/17) Exam I&O / VS Vital Signs Date Time Temp Pulse Resp B/P (MAP) Pulse Ox O2 Delivery O2 Flow Rate FiO2 03/24/17 12:51 97.4 82 20 148/65 (92) 95 03/24/17 08:15 97.7 86 20 128/61 (83) 92 03/24/17 07:35 94 21 03/24/17 04:00 97.4 71 17 124/62 (82) 93 03/24/17 00:00 97.2 82 18 126/60 (82) 95 03/23/17 20:00 97.3 88 21 138/62 (87) 95 Objective Micro and Labs Date/Time Source Procedure Growth Status 03/20/17 18:51 Blood Peripheral Aerobic Blood Culture - Preliminary NO GROWTH IN 4 DAYS Resulted 03/20/17 18:51 Blood Peripheral Anaerobic Blood Culture - Preliminary NO GROWTH IN 4 DAYS Resulted 03/20/17 18:51 Throat Group A Streptococcus Screen - Final NO GP A BETA STREP ISOLATED. Complete Pedro Sandoval MD Mar 24, 2017 16:28
[2017-03-24] MEDS: DIGOXIN 0.125 MG TAB PO SCH (21:18)
[2017-03-24] MEDS: ATORVASTATIN 40 MG TAB PO SCH (21:18)
[2017-03-25] VITALS (9 sets, daily range): BP systolic 124–159; BP diastolic 59–70; PULSE 81–95; RESP 18–20; TEMP 97.5–98; O2SAT 94–97
[2017-03-25] MEDS: methylPREDNISolone SOD SUCC 125 MG/2 ML VIAL IV PUSH SCH ×3 (05:30→22:13)
[2017-03-25] MEDS: INSULIN ASPART SUPPLEMENTAL SCALE SQ SCH ×4 (06:53→22:13)
[2017-03-25] MEDS ORDERED: BUPIVACAINE HCL PF 0.5% 30 ML VIAL ONE (07:00)
[2017-03-25] MEDS: METOPROLOL TARTRATE 25 MG TAB PO SCH (07:14)
[2017-03-25] MEDS: RESP: ALBUTEROL 2.5 MG/IPRATROPIUM 0.5 MG NEB (SCH) NEB (07:42)
[2017-03-25] MEDS ORDERED: METOPROLOL TARTRATE 25 MG TAB PO PRN (08:00)
[2017-03-25] MEDS ORDERED: LACTATED RINGER'S 1000 ML IV PRN (08:00)
[2017-03-25] MEDS ORDERED: CHLORHEXIDINE GLUCONATE 2 % 1 PACK (2 CLOTHS) TOPICAL PRN (08:00)
[2017-03-25] MEDS ORDERED: POVIDONE IODINE 5% (ANTISEPSIS KIT) 4 APPLICATIONS EACH NARE PRN (08:00)
[2017-03-25] MEDS ORDERED: SODIUM CHLORID 0.9% 500 ML IV PRN (08:00)
[2017-03-25] MEDS: NEOMYCIN/POLYMYXIN/HYDROCORT OTIC SOLN 10 ML BTL RIGHT EAR SCH ×2 (09:00→22:14)
[2017-03-25] MEDS: SODIUM CHLORIDE 0.9% FLUSH 10 ML FLUSH IV FLUSH SCH ×2 (09:00→22:14)
[2017-03-25] MEDS: FLUTICASONE PROPIONATE 50 MCG/ACT 16 GM NASAL SPRAY EACH NARE SCH ×2 (09:00→22:14)
--- NOTE | 2017-03-25 09:26 | PD.OP ---
cc: Pedro Sandoval MD; Miki Finney MD Operative Report Date of Surgery: Mar 25, 2017 Preoperative Diagnosis: (1) Temporal arteritis Postoperative Diagnosis: (1) Temporal arteritis Procedure: Right temporal artery biopsy Anesthesia: [facility] Surgeon: Miki Finney Machine Splitter(s): Ashwin CALDERA Operation and Findings: EBL: 5cc Findings: Uncomplicated right temporal artery biopsy. Miki Finney MD Mar 25, 2017 09:26
[2017-03-25] MEDS ORDERED: DO NOT ADM ANY ANTICOAGULANT DRUGS PRN (09:40)
[2017-03-25] MEDS: metFORMIN HCL 500 MG TAB PO SCH ×2 (10:21→17:07)
[2017-03-25] MEDS: LACTOBACILLUS ACIDOPHILUS TAB PO SCH (10:21)
[2017-03-25] MEDS: LISINOPRIL 10 MG TAB PO SCH (10:23)
[2017-03-25] MEDS: guaiFENesin E.R. 600 MG TAB PO SCH ×2 (10:23→22:12)
[2017-03-25] MEDS: FLUCONAZOLE 100 MG TAB PO SCH (10:24)
--- NOTE | 2017-03-25 13:38 | HHI.PR ---
Subjective Remarks patient is awake and alert, oriented x 3, very feisty and interactive no headaches, nausea or vomiting, n neck pain seen with her future gradndaughter in law agrees that she is better but still not baseline per family- she was very independent Objective Vitals Vital Signs Date Time Temp Pulse Resp B/P (MAP) Pulse Ox O2 Delivery O2 Flow Rate FiO2 03/25/17 12:32 97.5 85 20 159/70 (99) 96 03/25/17 12:07 95 03/25/17 09:53 81 19 141/67 (91) 94 Room Air 03/25/17 09:45 76 16 137/63 (87) 96 Room Air 03/25/17 09:40 94 03/25/17 09:37 97.1 78 21 148/65 (92) 97 Nasal Cannula 2 03/25/17 07:10 97.5 89 18 151/73 (99) 94 03/25/17 06:00 97.7 89 20 147/67 (93) 94 03/25/17 01:34 98.0 81 19 140/63 (88) 95 03/24/17 21:26 97.6 104 19 131/62 (85) 95 03/24/17 20:00 102 03/24/17 19:02 96 21 03/24/17 16:31 97.7 80 20 130/60 (83) 94 I/O 03/24/17 03/24/17 03/24/17 03/25/17 03/25/17 03/25/17 07:00 15:00 23:00 07:00 15:00 23:00 Intake Total 240 ml 0 ml 900 ml Output Total 4 ml Balance 240 ml 0 ml 896 ml Intake Oral 240 ml 0 ml Other 900 ml Output Urine Total 2 ml Estimated Blood Loss 2 ml # Voids 5 3 3 # Bowel Movements 1 2 Result Diagram: 03/23/17 0725 03/23/17 0725 Imaging Last Impressions Brain MRI 03/21/17 0000 Signed Impressions: Service Date/Time: Tuesday, March 21, 2017 18:31 - CONCLUSION: 1. No acute findings. Mild white matter signal abnormalities. No recent infarct. Mucosal thickening in the mastoid air cells. Yvon Zhang MD Head CT 03/20/17 1630 Signed Impressions: Service Date/Time: February 17:12 - CONCLUSION: No acute intracranial findings. Gianni Lowe MD Chest X-Ray 03/20/17 1630 Signed Impressions: Service Date/Time: February 16:42 - CONCLUSION: No acute cardiopulmonary disease identified. Gianni Lowe MD Objective Remarks awake and alert,more interactive, oriented x 3 anicteric, puils equal, EOMF full range of motion, no temporal tenderness pre-auricular area - post op biopsy site- no erythema, dry lungs- clear regular rhythm abdomen soft, nontender extremities no edema moves all extremities spontaneously Procedures 03/24- temporal artery biopsy right A/P Problem List: (1) Altered mental status ICD Code: R41.82 - Altered mental status, unspecified (2) Leukocytosis ICD Code: D72.829 - Elevated white blood cell count, unspecified Status: Acute Assessment and Plan 86 years old female Encephalopathy- Improved Possible Temporal Arteritis- S/P biopsy 03/25 -Has been waxing/waning for past 2 weeks - Head CT negative for acute intracranial process - MRI done on 03/06/17 showed possible tiny infarct with cerebral atrophy and chronic ischemic small vessel vasculopathy. Repeat MRI no acute findings - EEG with no seizure Unclear etiology, may be underlying component of dementia. ESR persistently high. This is patient's third admission this month. Initially diagnosed with PMR and was treated with low-dose prednisone for a few days only as she was readmitted 03/04/17 for sepsis and pneumonia Neurology ff on Solu-Medrol 60 mg IV every 8 hours for 2 days then high-dose prednisone high suspicion for temporal arteritis ff biopsy results 2. Leukocytosis- work up in progress- persistent may continue to be high since patient now that she is on steroids Unclear etiology - has been persistent since 03/16/17. No clear signs of infection UA and CXR negative Strep culture negative so far Obtain C. difficile, patient not having stools May need lumbar puncture, hold Eliquis Infectious disease ff- no antibiotics for now CBC in am Consult Hematology for persistent leukocytosis- reviewed Neurology notes 3. Transaminitis. Improving Patient with mild transaminitis AST/ALT/alkaline phosphatase 50/55/150 Hepatitis profile negative 4. Atrial fibrillation. Currently in sinus rhythm on Eliquis- held for possible procedure Continue metoprolol 5. Diabetes mellitus- not known diabetic- but on d/w son- at one point was told that she was borderline- but not placed on meds now unmasked by steroids change to ADA diet nutrition counselling Monitor blood glucose 6. Hypertension/Hyperlipidemia LDL 64. BP improving Continue home medications. Clonidine as needed 7. Yeast infection Patient recently diagnosed with yeast infection at her [facility] Continue Diflucan until March 26 PT/OT consult- per patient up and ambulating independently FEN Heart healthy diet start PPI for GI prophylaxi s- on steroids restart Eliquis in am Discharge Planning - SNF[facility] Problem Qualifiers (1) Altered mental status: Qualified Codes: R41.82 - Altered mental status, unspecified (2) Leukocytosis: Qualified Codes: D72.829 - Elevated white blood cell count, unspecified Alfredo Ansari MD Mar 25, 2017 13:38
[2017-03-25] MEDS: PANTOPRAZOLE SOD 40 MG DELAYED RELEASE TAB PO SCH (14:37)
--- NOTE | 2017-03-25 20:54 | HHI.PR ---
Review/Management Daily Summary 03/22 intt confusion over night per RN asleep this am data reviewed esr very high undetermined dx would ask for temporal artery bx through gen surgery also consider hemo eval for persistent leukocytosis 03/24 feeling better seemed better oriented this afternoon she knew place and even date moved 4 limbs well on steroids for possible temporal arterites, discussed with dr Hill yesterday temporal artery bx planned 03/25 no cx, no sylvester alert and pleasant moves 4 limbs well no distress temporal artery bx done this am steroids as is ambulate and probably office f/u Subjective Subjective Comments No acute events reported No headache No chest pain No dyspnea Active Medications Current Medications Medications (Trade) Dose Ordered Sig/Janna Route Start Time Stop Time Status Last Admin (NS Flush) 2 ml UNSCH PRN IV FLUSH 03/20/17 19:30 (NS Flush) 2 ml BID IV FLUSH 03/20/17 21:00 03/25/17 09:00 (Tylenol) 650 mg Q4H PRN PO 03/20/17 19:30 03/25/17 14:43 (Zofran Inj) 4 mg Q6H PRN IVP 03/20/17 19:30 (D50w (Vial) Inj) 50 ml UNSCH PRN IV PUSH 03/20/17 19:30 (Glucagon Inj) 1 mg UNSCH PRN OTHER 03/20/17 19:30 (NovoLOG SUPPLEMENTAL SCALE) 1 ACHS SLIDING SCALE SQ 03/20/17 21:00 03/25/17 18:15 (Eliquis) 2.5 mg BID PO 03/20/17 21:00 Future Hold 03/22/17 09:13 (Lipitor) 40 mg HS PO 03/20/17 21:00 03/24/17 21:18 (Lanoxin) 0.125 mg HS PO 03/20/17 21:00 03/24/17 21:18 (Mucinex Er) 600 mg Q12HR PO 03/20/17 21:00 03/25/17 10:23 (Prinivil) 10 mg DAILY PO 03/21/17 09:00 03/25/17 10:23 (Lopressor) 25 mg DAILY PO 03/21/17 09:00 03/25/17 07:14 (Cortisporin Otic Soln) 2 drop BID RIGHT EAR 03/20/17 21:00 03/24/17 21:16 (Flonase Jonathon Spr) 1 spray BID EACH NARE 03/20/17 21:00 03/24/17 21:16 (Lactinex) 1 tab DAILY PO 03/21/17 09:00 03/25/17 10:21 (Diflucan) 100 mg DAILY PO 03/21/17 09:00 03/26/17 08:59 03/25/17 10:24 (Ativan Inj) 1 mg Q15M PRN IV PUSH 03/21/17 10:00 (Glucophage) 250 mg BIDPC PO 03/21/17 18:00 03/25/17 17:07 (Catapres) 0.1 mg Q6H PRN PO 03/21/17 17:00 (Pill Splitter) 1 ea UNSCH PRN OTHER 03/21/17 18:00 (SoluMEDROL INJ) 60 mg Q8HR IV PUSH 03/23/17 14:00 03/25/17 14:38 Lactated Ringer's 1,000 ml @ 30 mls/hr Q24H PRN IV 03/24/17 06:00 03/27/17 05:59 Sodium Chloride 500 ml @ 30 mls/hr [id number] PRN IV 03/24/17 06:00 03/27/17 05:59 (Lopressor) 25 mg SOAP MAKER PRN PO 03/24/17 06:00 03/27/17 05:59 (Betadine 5% Antisepsis Kit) 1 applic SOAP MAKER PRN EACH NARE 03/24/17 06:00 03/27/17 05:59 (Chlorhexidine 2% Cloth) 3 pack SOAP MAKER PRN TOPICAL 03/24/17 06:00 03/27/17 05:59 Lactated Ringer's 1,000 ml @ 30 mls/hr Q24H PRN IV 03/25/17 08:00 03/28/17 07:59 Sodium Chloride 500 ml @ 30 mls/hr [id number] PRN IV 03/25/17 08:00 03/28/17 07:59 (Lopressor) 25 mg SOAP MAKER PRN PO 03/25/17 08:00 03/28/17 07:59 (Betadine 5% Antisepsis Kit) 1 applic SOAP MAKER PRN EACH NARE 03/25/17 08:00 03/28/17 07:59 (Chlorhexidine 2% Cloth) 3 pack SOAP MAKER PRN TOPICAL 03/25/17 08:00 03/28/17 07:59 Miscellaneous Information ALL NURSING DEPARTME... UNSCH PRN .XX 03/25/17 09:40 03/26/17 09:39 (Protonix) 40 mg DAILY PO 03/25/17 13:45 03/25/17 14:37 Allergies Allergies Coded Allergies No Known Allergies (Verified Allergy, Unknown, 03/20/17) Exam I&O / VS 03/25/17 03/25/17 03/26/17 15:00 23:00 07:00 Intake Total 900 ml Output Total 4 ml Balance 896 ml Other 900 ml Output Urine Total 2 ml Estimated Blood Loss 2 ml # Bowel Movements 1 Vital Signs Date Time Temp Pulse Resp B/P (MAP) Pulse Ox O2 Delivery O2 Flow Rate FiO2 03/25/17 20:39 97.8 95 18 141/67 (91) 95 03/25/17 17:57 87 03/25/17 15:36 98.0 87 20 124/59 (80) 97 03/25/17 12:32 97.5 85 20 159/70 (99) 96 03/25/17 12:07 95 03/25/17 09:53 81 19 141/67 (91) 94 Room Air 03/25/17 09:45 76 16 137/63 (87) 96 Room Air 03/25/17 09:40 94 03/25/17 09:37 97.1 78 21 148/65 (92) 97 Nasal Cannula 2 03/25/17 07:10 97.5 89 18 151/73 (99) 94 03/25/17 06:00 97.7 89 20 147/67 (93) 94 03/25/17 01:34 98.0 81 19 140/63 (88) 95 03/24/17 21:26 97.6 104 19 131/62 (85) 95 Objective Micro and Labs Date/Time Source Procedure Growth Status 03/20/17 18:51 Blood Peripheral Aerobic Blood Culture - Final NO GROWTH IN 5 DAYS Complete 03/20/17 18:51 Blood Peripheral Anaerobic Blood Culture - Final NO GROWTH IN 5 DAYS Complete 03/20/17 18:51 Throat Group A Streptococcus Screen - Final NO GP A BETA STREP ISOLATED. Complete Lori,Olimpio F. MD Mar 25, 2017 20:54
[2017-03-25] MEDS: ATORVASTATIN 40 MG TAB PO SCH (22:12)
[2017-03-25] MEDS: DIGOXIN 0.125 MG TAB PO SCH (22:12)
[2017-03-26] VITALS (11 sets, daily range): BP systolic 131–147; BP diastolic 56–71; PULSE 60–84; RESP 18; TEMP 97.3–97.7; O2SAT 95–98
[2017-03-26] MEDS: methylPREDNISolone SOD SUCC 125 MG/2 ML VIAL IV PUSH SCH ×3 (05:52→21:00)
[2017-03-26 07:24] LABS: HEMATOCRIT 26.8 % (35.0-46.0); HEMOGLOBIN 9.4 GM/DL (11.6-15.3); MEAN CELL VOLUME 84.9 FL (80.0-100.0); MEAN CORPUSCULAR HEMOGLOBIN 29.6 PG (27.0-34.0); MEAN CORPUSCULAR HGB CONC 34.9 % (32.0-36.0); MEAN PLATELET VOLUME 7.6 FL (7.0-11.0); PLATELET COUNT 427 TH/MM3 (150-450); RED BLOOD COUNT 3.16 MIL/MM3 (4.00-5.30); RED CELL DISTRIBUTION WIDTH 13.7 % (11.6-17.2); WHITE BLOOD COUNT 14.1 TH/MM3 (4.0-11.0)
[2017-03-26 07:27] LABS: ALBUMIN 1.9 GM/DL (3.4-5.0); ALT (GPT) 48 U/L (10-53); AST (GOT) 21 U/L (15-37); BICARBONATE 28.8 MEQ/L (21.0-32.0); BLOOD UREA NITROGEN 20 MG/DL (7-18); CHLORIDE 102 MEQ/L (98-107); CREATININE 0.64 MG/DL (0.50-1.00); GLOMERULAR FILTRATION RATE 88 ML/MIN (>89); GLUCOSE,RANDOM 261 MG/DL (74-106); IRON (FE) 61 MCG/DL (50-170); SODIUM (NA) 137 MEQ/L (136-145)
[2017-03-26 07:52] LABS: % SATURATION IRON PROFILE 31.6 % (20-50); ALKALINE PHOSPHATASE 127 U/L (45-117); FERRITIN 564 NG/ML (8-252); TOTAL BILIRUBIN ADULT 0.3 MG/DL (0.2-1.0); TOTAL IRON BINDING CAPACITY 193 MCG/DL (250-450); TOTAL PROTEIN 6.3 GM/DL (6.4-8.2)
--- NOTE | 2017-03-26 07:54 | MB ---
cc: ANNITA BRADSHAW DATE OF CONSULTATION 03/25/2017 REASON FOR CONSULTATION Patient with persistent leukocytosis. The patient was seen on March 25, 2017. HISTORY OF PRESENT ILLNESS This is an 86-year-old female who lives in an assisted living facility. She developed generalized weakness, back pain, waning mental alertness and confusion. She was brought to the emergency room. Approximately two weeks prior to her admission, an MRI revealed a small CVA. The patient has been seen by Urology. An extensive encephalopathy workup was done. There is unclear etiology of her neurological symptoms. She has persistently high ESR. This appears to be her third admission to the hospital. She was previously diagnosed with PMR and was treated with low-dose prednisone. She was then admitted to the hospital on 03/04/2017 for sepsis and pneumonia. On this admission, she has been seen by neurology. She has undergone temporal artery biopsy on 03/25/2017. There is concern for possible temporal arteritis. She is on Solu-Medrol 60 mg IV every eight hours. She is also being treated for candidiasis with Diflucan. Hematology has been consulted due to persistent leukocytosis with a white blood cell count of 22.7, her hemoglobin is 10 and her platelet count is 402. Her absolute neutrophils are increased at 84%. Upon my evaluation, the patient was alert and oriented. She was mildly confused, but was very pleasant. She has not had any history of blood disorders in the past. She is unsure why she was brought to the hospital, but thinks that she as not feeling very well. She has not had any fevers or chills. She has not had any night sweats. No other constitutional B symptoms. She states that she had a mild nose bleed today. She does not have any petechiae or bruising. REVIEW OF SYSTEMS A comprehensive 14-point review of systems was completed which is negative except as described in the HPI. PAST MEDICAL HISTORY 1. Diabetes 2. Hypertension 3. Atrial fibrillation 4. History of hyperlipidemia. 5. History of skin cancer removal from the nose. 6. History of CVA. SURGERIES Recent temporal artery biopsy. MEDICATIONS 1. Pantoprazole 40 mg p.o. daily 2. Metoprolol 25 mg p.o. p.r.n. 3. Solu-Medrol 60 mg IV q.8 h. 4. Metformin 250 p.o. b.i.d. 5. Lorazepam 1 mg IV q. 15 minutes p.r.n. 6. Lisinopril 10 mg p.o. daily 7. Metoprolol 25 mg p.o. daily 8. Lactobacillus 1 tablet p.o. 9. Diflucan 100 mg p.o. daily 10. Atorvastatin 40 mg p.o. q.h.s. 11. Digoxin 0.125 mg p.o. q.h.s. 12. Mucinex 600 mg p.o. q.12 h. 13. Flonase 1 spray b.i.d. ALLERGIES NO KNOWN DRUG ALLERGIES. SOCIAL HISTORY No history of tobacco abuse, alcohol abuse or illicit drug use. FAMILY HISTORY Was reviewed and is noncontributory to this admission. PHYSICAL EXAMINATION VITAL SIGNS: Blood pressure is 141/67, pulse is in the 90s, temperature is 97.8, O2 sats are 95% on room air. GENERAL: An elderly female who is frail, who is mildly confused. She is alert and oriented. HEENT: Pupils are equal, round, and reactive to light. EOMI. No thrush. No oral lesions. NECK: Supple. No JVD, no bruits. No lymphadenopathy. CHEST: Clear to auscultation bilaterally. CARDIAC: S1-S2 regular rate and rhythm. ABDOMEN: Soft, nontender, and nondistended. Bowel sounds are present. EXTREMITIES: Without any edema, erythema or cyanosis. SKIN: Without any petechiae, lesion or bruises. NEUROLOGIC: No focal deficits. PSYCHIATRIC: Mood and affect is appropriate. LABORATORY DATA WBC 22.7, hemoglobin 10, platelet count is 402, GFR is 140. Serum chemistries sodium 134, potassium 3.8, chloride 99, BUN 12, creatinine is 0.67, GFR is 83, calcium is 9.2, magnesium is 1.6, AST 28, ALT is 43, alk phos is 151, B12 is 511, albumin is 1.7. Brain MRI was reviewed. No acute finding. There is mild white matter signal abnormality. CHEST X-RAY Reviewed, no acute cardiopulmonary disease. ASSESSMENT/PLAN This is a 86-year-old female who has a past medical history of hyperlipidemia, hypertension, diabetes who lives in an assisted living facility. This is her third hospital admission this month. She presents to the emergency room with altered sensorium, and confusion. She is currently being seen by neurology. She had a temporal artery biopsy and a diagnosis of temporal arteritis is under consideration. I have been consulted to evaluate her leukocytosis. 1. Leukocytosis which primarily consists of segmented neutrophils. I believe this is reactive. I reviewed the peripheral smear. I do not see any dysplasia or erythropoiesis. We will have our pathologist review the smear as well. Her leukocytosis is likely due to her being on steroids. Also, she has chronic inflammation with an elevated ESR. Both of these factors can cause leukocytosis. Her white blood cell count can be monitored on an outpatient basis. This should be checked again in prh-rd-[id number] months to confirm that it has normalized after she has been off the steroids. 2. Normocytic anemia. Obtain anemia studies. 3. Encephalopathy currently being seen by neurology. Thank you for allowing me to participate in the care of this patient. I will continue to follow this patient along. MD OPAL Hewitt/NIMISHA /12:25 AM /7:24 AM
[2017-03-26 08:03] LABS: WESTERGREN SEDIMENTATION RATE 104 mm/hr (0-30)
[2017-03-26] MEDS: METOPROLOL TARTRATE 25 MG TAB PO SCH (09:10)
[2017-03-26] MEDS: LACTOBACILLUS ACIDOPHILUS TAB PO SCH (09:11)
[2017-03-26] MEDS: metFORMIN HCL 500 MG TAB PO SCH ×2 (09:11→17:33)
[2017-03-26] MEDS: NEOMYCIN/POLYMYXIN/HYDROCORT OTIC SOLN 10 ML BTL RIGHT EAR SCH ×2 (09:11→21:01)
[2017-03-26] MEDS: FLUTICASONE PROPIONATE 50 MCG/ACT 16 GM NASAL SPRAY EACH NARE SCH ×2 (09:11→21:01)
[2017-03-26] MEDS: guaiFENesin E.R. 600 MG TAB PO SCH ×2 (09:11→20:59)
[2017-03-26] MEDS: PANTOPRAZOLE SOD 40 MG DELAYED RELEASE TAB PO SCH (09:11)
[2017-03-26] MEDS: SODIUM CHLORIDE 0.9% FLUSH 10 ML FLUSH IV FLUSH SCH ×2 (09:11→20:59)
[2017-03-26] MEDS: INSULIN ASPART SUPPLEMENTAL SCALE SQ SCH ×4 (09:12→21:00)
[2017-03-26] MEDS: LISINOPRIL 10 MG TAB PO SCH (09:14)
--- NOTE | 2017-03-26 10:11 | HHI.PR ---
Subjective Remarks interesting in that comfortably, complaining of pain in her left side of her face, no nausea or vomiting White blood count dropped today to 12.2, she is on Solu-Medrol will be changed to prednisone at discharge Objective Vitals Vital Signs Date Time Temp Pulse Resp B/P (MAP) Pulse Ox O2 Delivery O2 Flow Rate FiO2 03/26/17 09:10 98 03/26/17 08:00 97.3 84 18 147/56 (86) 98 03/26/17 05:05 97.3 80 18 146/71 (96) 97 03/26/17 01:15 97.4 83 18 135/63 (87) 95 03/26/17 00:00 81 03/25/17 20:39 97.8 95 18 141/67 (91) 95 03/25/17 20:02 94 03/25/17 17:57 87 03/25/17 15:36 98.0 87 20 124/59 (80) 97 03/25/17 12:32 97.5 85 20 159/70 (99) 96 03/25/17 12:07 95 I/O 03/25/17 03/25/17 03/25/17 03/26/17 03/26/17 03/26/17 07:00 15:00 23:00 07:00 15:00 23:00 Intake Total 0 ml 900 ml Output Total 4 ml Balance 0 ml 896 ml Intake Oral 0 ml Other 900 ml Output Urine Total 2 ml Estimated Blood Loss 2 ml # Voids 3 1 1 # Bowel Movements 2 1 Result Diagram: 03/26/1723 03/26/17 0623 Objective Remarks GENERAL: This is a well-nourished, well-developed patient, in no apparent distress. CARDIOVASCULAR: Regular rate and rhythm without murmurs, gallops, or rubs. RESPIRATORY: Clear to auscultation. Breath sounds equal bilaterally. No wheezes , rales, or rhonchi. GASTROINTESTINAL: Abdomen soft, non-tender, nondistended. Normal active bowel sounds MUSCULOSKELETAL: Extremities without clubbing, cyanosis, or edema. NEURO: Alert & Oriented x4 to person, place, time, situation. Moves all ext x4 Procedures 03/24- temporal artery biopsy right A/P Problem List: (1) Altered mental status ICD Code: R41.82 - Altered mental status, unspecified (2) Leukocytosis ICD Code: D72.829 - Elevated white blood cell count, unspecified Status: Acute Assessment and Plan 86 years old female Encephalopathy- Improved Possible Temporal Arteritis- S/P biopsy 03/25 - Head CT negative for acute intracranial process - MRI done on 03/06/17 showed possible tiny infarct with cerebral atrophy and chronic ischemic small vessel vasculopathy. Repeat MRI no acute findings - EEG with no seizure Unclear etiology, may be underlying component of dementia. ESR persistently high. This is patient's third admission this month. Initially diagnosed with PMR and was treated with low-dose prednisone for a few days only as she was readmitted 03/04/17 for sepsis and pneumonia Neurology ff on Solu-Medrol 60 mg IV every 8 hours for 2 days then high-dose prednisone high suspicion for temporal arteritis ff biopsy results 2. Leukocytosis-? Steroid-induced Unclear etiology - has been persistent since 03/16/17. No clear signs of infection UA and CXR negative Strep culture negative so far Obtain C. difficile, patient not having stools May need lumbar puncture, hold Eliquis Infectious disease ff- no antibiotics for now 3. Transaminitis. Trending down, back to normal alkaline phosphatase 127 Hepatitis profile negative 4. Atrial fibrillation. Currently in sinus rhythm on Eliquis- held for possible procedure Continue metoprolol 5. Diabetes mellitus- A1c 6.4 on change to ADA diet nutrition counselling Accu-Chek with ISS 6. Hypertension/Hyperlipidemia LDL 64. BP improving Continue home medications. Clonidine as needed 7. Yeast infection Patient recently diagnosed with yeast infection at her [facility] Continue Diflucan until March 26 PT/OT consult- per patient up and ambulating independently FEN Heart healthy diet start PPI for GI prophylaxi s- on steroids restart Eliquis in am Problem Qualifiers (1) Altered mental status: Qualified Codes: R41.82 - Altered mental status, unspecified (2) Leukocytosis: Qualified Codes: D72.829 - Elevated white blood cell count, unspecified Jennifer Chino MD Mar 26, 2017 10:11
--- NOTE | 2017-03-26 12:02 | HHI.PR ---
Subjective Subjective Notes She is sleeping. Objective Vitals/I&O Vital Signs Date Time Temp Pulse Resp B/P (MAP) Pulse Ox O2 Delivery O2 Flow Rate FiO2 03/26/17 10:29 64 03/26/17 09:10 98 03/26/17 08:00 97.3 18 147/56 (86) 03/25/17 09:53 Room Air 03/25/17 09:37 2 03/24/17 19:02 21 Labs Laboratory Tests Test 03/26/17 06:23 White Blood Count 14.1 Red Blood Count 3.16 Hemoglobin 9.4 Hematocrit 26.8 Mean Corpuscular Volume 84.9 Mean Corpuscular Hemoglobin 29.6 Mean Corpuscular Hemoglobin Concent 34.9 Red Cell Distribution Width 13.7 Platelet Count 427 Mean Platelet Volume 7.6 Erythrocyte Sedimentation Rate 104 Blood Urea Nitrogen 20 Creatinine 0.64 Random Glucose 261 Total Protein 6.3 Albumin 1.9 Calcium Level 9.0 Alkaline Phosphatase 127 Aspartate Amino Transf (AST/SGOT) 21 Alanine Aminotransferase (ALT/SGPT) 48 Total Bilirubin 0.3 Sodium Level 137 Potassium Level 4.2 Chloride Level 102 Carbon Dioxide Level 28.8 Anion Gap 6 Estimat Glomerular Filtration Rate 88 Iron Level 61 Total Iron Binding Capacity 193 Percent Iron Saturation 31.6 Ferritin 564 Vitamin B12 Level 675 Date/Time Source Procedure Growth Status 03/20/17 18:51 Blood Peripheral Aerobic Blood Culture - Final NO GROWTH IN 5 DAYS Complete 03/20/17 18:51 Blood Peripheral Anaerobic Blood Culture - Final NO GROWTH IN 5 DAYS Complete 03/20/17 18:51 Throat Group A Streptococcus Screen - Final NO GP A BETA STREP ISOLATED. Complete Radiology Last Impressions Brain MRI 03/21/17 0000 Signed Impressions: Service Date/Time: Tuesday, March 21, 2017 18:31 - CONCLUSION: 1. No acute findings. Mild white matter signal abnormalities. No recent infarct. Mucosal thickening in the mastoid air cells. Yvon Zhang MD Head CT 03/20/17 1630 Signed Impressions: Service Date/Time: February 17:12 - CONCLUSION: No acute intracranial findings. Gianni Lowe MD Chest X-Ray 03/20/17 1630 Signed Impressions: Service Date/Time: February 16:42 - CONCLUSION: No acute cardiopulmonary disease identified. Gianni Lowe MD Narrative Exam Incision c/d/i, mild swelling A/P Assessment and Plan 86 yo F with right sided facial and ear pain, elevated ESR, encephalopathy, POD 1 right temporal artery biopsy. Await pathology results. Miki Finney MD Mar 26, 2017 12:02
--- NOTE | 2017-03-26 16:18 | HHI.IDPN ---
Note Infectious Disease Note Patient complains of being very weak and tired. Talks in a weak voice. Confused. Oriented to person and knows she is in the hospital. Not oriented to time. Afebrile. 86-year-old white female who was brought to the emergency department because of generalized weakness. It is reported the patient's primary physician was concerned for possible CVA because she was not able to follow commands. The patient complains of pain in the right ear and around the right eye. She states that the light seems blurred. She denies double vision. The patient is a poor historian. She was previously admitted to the hospital on March 04 with altered mental status. PAST MEDICAL HISTORY: 1. Diabetes mellitus. 2. Hypertension. 3. Atrial fibrillation. 4. Hyperlipidemia. 5. History of skin cancer removal at the left nose. 6. History of CVA. ALLERGIES: NO KNOWN DRUG ALLERGIES. OBJECTIVE: Vital Signs Date Time Temp Pulse Resp B/P (MAP) Pulse Ox O2 Delivery O2 Flow Rate FiO2 03/26/17 12:00 97.4 74 18 131/60 (83) 98 03/26/17 10:29 64 03/26/17 09:10 98 03/26/17 08:00 97.3 84 18 147/56 (86) 98 03/26/17 05:05 97.3 80 18 146/71 (96) 97 03/26/17 01:15 97.4 83 18 135/63 (87) 95 03/26/17 00:00 81 03/25/17 20:39 97.8 95 18 141/67 (91) 95 03/25/17 20:02 94 03/25/17 17:57 87 Laboratory Tests Test 03/26/17 06:23 White Blood Count 14.1 TH/MM3 Red Blood Count 3.16 MIL/MM3 Hemoglobin 9.4 GM/DL Hematocrit 26.8 % Mean Corpuscular Volume 84.9 FL Mean Corpuscular Hemoglobin 29.6 PG Mean Corpuscular Hemoglobin Concent 34.9 % Red Cell Distribution Width 13.7 % Platelet Count 427 TH/MM3 Mean Platelet Volume 7.6 FL Erythrocyte Sedimentation Rate 104 mm/hr Laboratory Tests Test 03/26/17 06:23 Blood Urea Nitrogen 20 MG/DL Creatinine 0.64 MG/DL Random Glucose 261 MG/DL Total Protein 6.3 GM/DL Albumin 1.9 GM/DL Calcium Level 9.0 MG/DL Alkaline Phosphatase 127 U/L Aspartate Amino Transf (AST/SGOT) 21 U/L Alanine Aminotransferase (ALT/SGPT) 48 U/L Total Bilirubin 0.3 MG/DL Sodium Level 137 MEQ/L Potassium Level 4.2 MEQ/L Chloride Level 102 MEQ/L Carbon Dioxide Level 28.8 MEQ/L Anion Gap 6 MEQ/L Estimat Glomerular Filtration Rate 88 ML/MIN Iron Level 61 MCG/DL Total Iron Binding Capacity 193 MCG/DL Percent Iron Saturation 31.6 % Ferritin 564 NG/ML Vitamin B12 Level 675 PG/ML IMAGING: Brain MRI 03/21/17 0000 Signed Impressions: Service Date/Time: Tuesday, March 21, 2017 18:31 - CONCLUSION: 1. No acute findings. Mild white matter signal abnormalities. No recent infarct. Mucosal thickening in the mastoid air cells. Yvon Zhang MD Head CT 03/20/17 1630 Signed Impressions: Service Date/Time: February 17:12 - CONCLUSION: No acute intracranial findings. Gianni Lowe MD Chest X-Ray 03/20/17 1630 Signed Impressions: Service Date/Time: February 16:42 - CONCLUSION: No acute cardiopulmonary disease identified. Gianni Lowe MD PHYSICAL EXAMINATION: GENERAL: No acute distress. Lethargic. HEAD, EYES, EARS, NOSE, THROAT: Extraocular movements grossly intact, pupils reactive to light. No icterus. No conjunctival erythema. Oropharynx very dry mucosa without thrush or lesions. NECK: Supple without adenopathy. LUNGS: Decreased breath sounds. HEART: Irreg. 2/6 systolic ejection murmur at the left sternal border. ABDOMEN: Bowel sounds present, soft, no tenderness. No masses palpable. EXTREMITIES: No cyanosis, clubbing or edema. SKIN: No rash. NEUROLOGIC: No gross focal findings. Strength is decreased on both lower and upper extremities equally. PSYCHIATRIC: Calm and cooperative. IMPRESSION: Altered mental status and leukocytosis in a patient who is complaining of pain in the right temporal and right side of the face and has elevated sedimentation rate. 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 No clear evidence of infection. WBC still elevated but lower. RECOMMENDATIONS: Monitor the white blood cell count. Check RPR and SUSANNE. I do not think antibiotics are needed at this time. Monitor clinical status. Dontfraid,Daryl F MD Mar 26, 2017 16:18
[2017-03-26] MEDS: ATORVASTATIN 40 MG TAB PO SCH (20:59)
[2017-03-26] MEDS: DIGOXIN 0.125 MG TAB PO SCH (21:02)
[2017-03-27] VITALS: BP 142/67; PULSE 69; RESP 17; TEMP 97.6; O2SAT 97
[2017-03-27 04:00] VITALS: BP 137/65; PULSE 61; RESP 17; TEMP 97.9; O2SAT 93
[2017-03-27] MEDS: methylPREDNISolone SOD SUCC 125 MG/2 ML VIAL IV PUSH SCH ×3 (05:47→21:04)
[2017-03-27 07:56] VITALS: BP 161/71; PULSE 65; RESP 18; TEMP 97.4; O2SAT 95
[2017-03-27] MEDS: INSULIN ASPART SUPPLEMENTAL SCALE SQ SCH ×4 (08:00→21:06)
[2017-03-27] MEDS: FLUTICASONE PROPIONATE 50 MCG/ACT 16 GM NASAL SPRAY EACH NARE SCH ×2 (08:44→21:05)
[2017-03-27] MEDS: SODIUM CHLORIDE 0.9% FLUSH 10 ML FLUSH IV FLUSH SCH ×2 (08:44→21:05)
[2017-03-27] MEDS: guaiFENesin E.R. 600 MG TAB PO SCH ×2 (08:49→21:05)
[2017-03-27] MEDS: metFORMIN HCL 500 MG TAB PO SCH ×2 (08:49→17:17)
[2017-03-27] MEDS: PANTOPRAZOLE SOD 40 MG DELAYED RELEASE TAB PO SCH (08:49)
[2017-03-27] MEDS: METOPROLOL TARTRATE 25 MG TAB PO SCH (08:49)
[2017-03-27] MEDS: LISINOPRIL 10 MG TAB PO SCH (08:49)
[2017-03-27] MEDS: LACTOBACILLUS ACIDOPHILUS TAB PO SCH (08:49)
[2017-03-27] MEDS: NEOMYCIN/POLYMYXIN/HYDROCORT OTIC SOLN 10 ML BTL RIGHT EAR SCH ×2 (08:51→21:05)
[2017-03-27 11:48] VITALS: BP 137/65; PULSE 65; RESP 18; TEMP 97.5; O2SAT 99
--- NOTE | 2017-03-27 13:32 | HHI.PR ---
Subjective Remarks Patient still encephalopathic, she is rarely answering question she was able to recognize her granddaughter Complained of pain in her right facial incision of the biopsy Other than that his poor historian Discussed with the granddaughter explain the finding of the biopsy in the plan of continuing steroid and follow neuro recommendations Objective Vitals Vital Signs Date Time Temp Pulse Resp B/P (MAP) Pulse Ox O2 Delivery O2 Flow Rate FiO2 03/27/17 11:48 97.5 65 18 137/65 (89) 99 03/27/17 07:56 97.4 65 18 161/71 (101) 95 03/27/17 04:00 97.9 61 17 137/65 (89) 93 03/27/17 00:00 97.6 69 17 142/67 (92) 97 03/26/17 20:00 62 03/26/17 20:00 97.7 60 18 141/66 (91) 96 03/26/17 19:57 95 03/26/17 18:26 66 03/26/17 16:00 97.4 67 18 141/60 (87) 95 I/O 03/26/17 03/26/17 03/26/17 03/27/17 03/27/17 03/27/17 07:00 15:00 23:00 07:00 15:00 23:00 # Voids 1 # Bowel Movements 1 Result Diagram: 03/26/1762203/26/17622 Objective Remarks GENERAL: This is a well-nourished, well-developed patient, in no apparent distress. CARDIOVASCULAR: Regular rate and rhythm without murmurs, gallops, or rubs. RESPIRATORY: Clear to auscultation. Breath sounds equal bilaterally. No wheezes , rales, or rhonchi. GASTROINTESTINAL: Abdomen soft, non-tender, nondistended. Normal active bowel sounds MUSCULOSKELETAL: Extremities without clubbing, cyanosis, or edema. NEURO: Alert & Oriented x4 to person, place, time, situation. Moves all ext x4 Procedures 03/24- temporal artery biopsy right A/P Problem List: (1) Altered mental status ICD Code: R41.82 - Altered mental status, unspecified (2) Leukocytosis ICD Code: D72.829 - Elevated white blood cell count, unspecified Status: Acute Assessment and Plan 86 years old female Encephalopathy- Improved High clinical suspect of Temporal Arteritis- S/P biopsy 03/25 showed chronic inflammation nonconclusive for temporal arteritis but it's still not excluded - Head CT negative for acute intracranial process - MRI done on 03/06/17 showed possible tiny infarct with cerebral atrophy and chronic ischemic small vessel vasculopathy. Repeat MRI no acute findings - EEG with no seizure but rather consistent with metabolic dysfunction Unclear etiology, may be underlying component of dementia. ESR persistently high. This is patient's third admission this month. Initially diagnosed with PMR and was treated with low-dose prednisone for a few days only as she was readmitted 03/04/17 for sepsis and pneumonia Neurology ff appreciate their input on Solu-Medrol 60 mg IV every 8 hours for 2 days then high-dose prednisone high suspicion for temporal arteritis 2. Leukocytosis-? Steroid-induced>> trending down Unclear etiology - has been persistent since 03/16/17. No clear signs of infection UA and CXR negative Strep culture negative so far Obtain C. difficile, patient not having stools May need lumbar puncture, hold Eliquis Infectious disease ff- no antibiotics for now 3. Transaminitis. Trending down, back to normal alkaline phosphatase 127 Hepatitis profile negative 4. Atrial fibrillation. Currently in sinus rhythm on Eliquis- held for possible procedure Continue metoprolol 5. Diabetes mellitus- A1c 6.4 on change to ADA diet nutrition counselling Accu-Chek with ISS 6. Hypertension/Hyperlipidemia LDL 64. BP improving Continue home medications. Clonidine as needed 7. Yeast infection Patient recently diagnosed with yeast infection at her [facility] Continue Diflucan until March 26 PT/OT consult- per patient up and ambulating independently FEN Heart healthy diet start PPI for GI prophylaxi s- on steroids restart Eliquis in am Problem Qualifiers (1) Altered mental status: Qualified Codes: R41.82 - Altered mental status, unspecified (2) Leukocytosis: Qualified Codes: D72.829 - Elevated white blood cell count, unspecified Jennifer Chino MD Mar 27, 2017 13:32
[2017-03-27 16:21] VITALS: BP 140/63; PULSE 70; RESP 18; TEMP 97.7; O2SAT 97
[2017-03-27] MEDS: ATORVASTATIN 40 MG TAB PO SCH (21:05)
[2017-03-27] MEDS: DIGOXIN 0.125 MG TAB PO SCH (21:05)
[2017-03-27 21:30] VITALS: BP 122/62; PULSE 69; RESP 16; TEMP 98.8; O2SAT 95
[2017-03-28 00:30] VITALS: BP 120/67; PULSE 60; RESP 17; TEMP 97.6; O2SAT 96
[2017-03-28] MEDS: methylPREDNISolone SOD SUCC 125 MG/2 ML VIAL IV PUSH SCH (06:18)
[2017-03-28 06:30] VITALS: BP 118/70; PULSE 59; RESP 17; TEMP 98.3; O2SAT 96
[2017-03-28 08:00] VITALS: BP 153/79; PULSE 66; RESP 18; TEMP 97.2; O2SAT 96
[2017-03-28 08:03] VITALS: PULSE 57
[2017-03-28] MEDS: PANTOPRAZOLE SOD 40 MG DELAYED RELEASE TAB PO SCH (09:10)
[2017-03-28] MEDS: LISINOPRIL 10 MG TAB PO SCH (09:10)
[2017-03-28] MEDS: LACTOBACILLUS ACIDOPHILUS TAB PO SCH (09:10)
[2017-03-28] MEDS: guaiFENesin E.R. 600 MG TAB PO SCH (09:10)
[2017-03-28] MEDS: metFORMIN HCL 500 MG TAB PO SCH (09:10)
[2017-03-28] MEDS: INSULIN ASPART SUPPLEMENTAL SCALE SQ SCH ×2 (09:11→12:57)
[2017-03-28] MEDS: SODIUM CHLORIDE 0.9% FLUSH 10 ML FLUSH IV FLUSH SCH (09:11)
[2017-03-28] MEDS: FLUTICASONE PROPIONATE 50 MCG/ACT 16 GM NASAL SPRAY EACH NARE SCH (09:11)
[2017-03-28] MEDS: METOPROLOL TARTRATE 25 MG TAB PO SCH (09:12)
[2017-03-28] MEDS: NEOMYCIN/POLYMYXIN/HYDROCORT OTIC SOLN 10 ML BTL RIGHT EAR SCH (09:12)
[2017-03-28] MEDS ORDERED: PRED20 PO (09:51)
[2017-03-28 12:00] VITALS: BP 142/66; PULSE 65; RESP 18; TEMP 97; O2SAT 96
[2017-03-28 12:06] VITALS: PULSE 56
[2017-03-28 13:10] LABS: ANA SCREEN NEG (NEG)
== END 2017-03-28 13:46 | DRG 42 ==
LOC: NEPC 14:42 → NEDA 19:10 → NEPHCDU 20:14 → OBSVTOIN 03-21 11:37 → N05A 03-23 11:59
PROVIDERS: ADMIT Hospitalist; ATTEND Hospitalist
PROC: 03BS0ZX Excision of Right Temporal Artery, Open Approach, Diagnostic (ICD-10-PCS; principal; 2017-03-25 07:50)
DX: G93.40 Encephalopathy, unspecified (principal); M31.6 Other giant cell arteritis; E11.9 Type 2 diabetes mellitus without complications; F03.90 Unspecified dementia, unspecified severity, without behavioral disturbance, psychotic disturbance, mood disturbance, and anxiety; I48.91 Unspecified atrial fibrillation; I10 Essential (primary) hypertension; B37.9 Candidiasis, unspecified; E78.5 Hyperlipidemia, unspecified; E87.6 Hypokalemia; I44.0 Atrioventricular block, first degree; Z85.828 Personal history of other malignant neoplasm of skin; Z79.01 Long term (current) use of anticoagulants; Z79.4 Long term (current) use of insulin; Z86.73 Personal history of transient ischemic attack (TIA), and cerebral infarction without residual deficits; H92.01 Otalgia, right ear; Z83.3 Family history of diabetes mellitus; R04.0 Epistaxis; R70.0 Elevated erythrocyte sedimentation rate; D64.9 Anemia, unspecified
CPT/HCPCS: 70450; 70551; 71045; 80048; 80053; 80074; 80162; 81001; 82140; 82550; 82607; 82728; 82747; 82948; 83540; 83550; 83605; 83735; 85025; 85027; 85060; 85610; 85652; 85730; 86038; 86592; 87040; 87081; 87880; 88304; 93005; 94640; 94664; 95819; 96360; G0378; G8987-GP; G8988-GP; J1815; J2930; J3010; J7030; P9612